=== PATIENT | female | born 1940 | race Caucasian/White ===

== ENCOUNTER 2024-09-29 15:54 | Outpatient (REF) | payer MEDICARE, SELFPAY ==
[2024-09-29 15:57] LABS: MANUAL DIFF FLAG NO
[2024-09-29 16:01] LABS: Basophils Percent Auto 0.4 % (0-2); Eosinophils Absolute Auto 0.1 X10*3/uL (0.0-0.4); Eosinophils Percent Auto 1.1 % (0-4); Hematocrit 21.5 % (37.0-47.0); Hemoglobin 7.3 g/dl (12.0-16.0); Imm Gran Abs Auto 0.02 X10*3/uL (0.00-0.03); Imm Gran Pct Auto 0.4 % (0.0-0.4); Lymphocytes Absolute Auto 0.8 X10*3/uL (1.2-4.9); Lymphocytes Percent Auto 14.5 % (20-40); Mean Corpuscular Hemoglobin 31.6 pg (27.0-33.0); Mean Corpuscular Volume 93.1 fL (80.0-98.0); Mean Platelet Volume 9.8 fL (9.4-12.3); Monocytes Absolute Auto 0.5 X10*3/uL (0.1-1.2); Monocytes Percent Auto 9.3 % (2-11); Neutrophils Absolute Auto 4.1 x10*3/uL (2.0-8.3); Neutrophils Percent Auto 74.3 % (45-73); Platelet Count 187 X10*3/uL (160-400); Red Blood Count 2.31 X10*6/uL (4.20-5.50); Red Cell Distribution Width 15.2 % (11.0-16.0); White Blood Count 5.5 X10*3/uL (4.8-10.8)
[2024-09-29 16:05] LABS: INTERNATIONAL NORM RATIO 0.9 (0.9-1.1); Prothrombin Time 10.8 SEC (10.9-12.4)
--- OUTSIDE RECORDS SUMMARY | 2024-09-29 16:21 | XMS_ITS | Encounter Summary ---
Author Organization [employer] Address [address] [place] [address] Care Team Providers Care Panelboard Operator Name Role Phone Rylan Ortiz DO Primary Care Provider Encounter Details Date Type Department Care Team (Latest Contact Info) Description 09/17/2024 8:38 AM EST - 09/17/2024 11:59 PM EST Hospital Encounter [facility] [address] [place] [phone] Pain Discharge Disposition: Home or Self Care Social History Tobacco Use Types Packs/Day Years Used Date Smoking Tobacco: Never Smokeless Tobacco: Never Alcohol Use Standard Drinks/Week Comments Not Currently 0 (1 standard drink = 0.6 oz pur e alcohol) Comments Unknown Sex and Gender Information Value Date Recorded Sex Assigned at Female 09/22/2024 3:42 PM EST Legal Sex Female 2:57 AM EST Gender Identity Female 09/22/2024 3:42 PM EST Sexual Orientation Straight 09/22/2024 3: 42 PM EST documented as of this encounter Medications at Time of Discharge hydroCHLOROthiazi de (HYDRODIURIL) 25 mg tablet Take 1 tablet (25 mg total) by mouth 1 (one) time each day. 02/12/2018 levothyroxine (SYNTHROID, LEVOTHROID) 175 mcg tablet Take 1 tablet (175 mcg total) by mouth 1 (one) time each day before breakfast. 08/21/2024 simvastatin (ZOCOR) 10 mg tablet Take 1 tablet (10 mg total) by mouth at bedtime. 04/01/2018 metoprolol succinate (TOPROL-XL) 50 mg 24 hr tablet Take 1 tablet (50 mg total) by mouth 1 (one) time each day. 03/06/2018 09/26/2024 warfarin (COUMADIN) 5 mg tablet Take 1 tablet (5 mg total) by mouth 1 (one) time each day with dinner. 07/02/2006 09/26/2024 documented as of this encounter Discharge Disposition Disposition Code Departure Means Destination Home or Self Care documented in this encounter Plan of Treatment Upcoming Encounters Date Type Department Care Team (Late st Contact Info) Description 10/20/2024 12:30 PM EST Consult Orthopedics - [place] [address] [place] [phone] Kavin Xavier PA [address] [place] [address] documented as of this encounter Procedures Procedure Name Priority Date/Time Associated Diagnosis Comments XR SHOULDER 2+ VIEWS RIGHT Routine 09/17/2024 8:50 AM EST Pain documented in this encounter Results * XR Shoulder 2+ Views Right (09/17/2024 8:50 AM EST) Anatomical Region Laterality Modality Upper Extremities, Shoulder Right Radi ographic Imaging 09/17/2024 8:52 AM EST Impressions 09/17/2024 9:00 AM EST Degenerative changes of the right shoulder. Bilobed calcification or ossification superior to the femoral head. ??The morphology is more suggestive of an ossification, and this could represent a loose body. ??Possibility of calcific tendinitis of the rotator cuff is not excluded but felt less likely. -------- FINAL REPORT -------- Dictated By: Man Abarca Dictated Date: 09/17/2024 08:52 ET Assigned Physician: Man Abarca Reviewed and Electronically Signed By: Man Abarca Signed Date: 09/17/2024 09:00 ET Workstation ID: [id number] Transcribed By: Self Edit Transcribed Date: 09/17/2024 08:54 ET Narrative 09/17/2024 9:00 AM EST Multiple views of the right shoulder, 09/17/2024. HISTORY: pain. COMPARISON: None. FINDINGS: Bones are diffusely demineralized. ??There are mild degenerative changes of the acromioclavicular and glenohumeral joint. ??Lateral downsloping of the acromion with prominent subacromial spurs and narrowing of the subacromial space. ??There is a bilobed calcification or more likely ossification projecting superior to the humeral head on the frontal view which could represent a loose body. ??No fracture or malalignment. ??Normal periarticular soft tissues. Procedure Note Man Abarca MD - 09/17/2024 Multiple views of the right shoulder, 09/17/2024. HISTORY: pain. COMPARISON: None. FINDINGS: Bones are diffusely demineralized. There are mild degenerative changes ofthe acromioclavicular and glenohumeral joint. Lateral downsloping of theacromion with prominent subacromial spurs and narrowing of the subacromialspace. There is a bilobed calcification or more likely ossificationprojecting superior to the humeral head on the frontal view which couldrepresent a loose body. No fracture or malalignment. Normalperiarticular soft tissues. IMPRESSION: Degenerative changes of the right shoulder. Bilobed calcification or ossification superior to the femoral head. Themorphology is more suggestive of an ossification, and this could representa loose body. Possibility of calcific tendinitis of the rotator cuff isnot excluded but felt less likely. -------- FINAL REPORT -------- Dictated By: Man Abarca Dictated Date: 09/17/2024 08:52 ET Assigned Physician: Man Abarca Reviewed and Electronically Signed By: Man Abarca Signed Date: 09/17/2024 09:00 ET Workstation ID: [id number] Transcribed By: Self Edit Transcribed Date: 09/17/2024 08:54 ET Rylan Ortiz DO IM XR PROCEDURES Final Resul t documented in this encounter Visit Diagnoses Diagnosis Pain Generalized pain documented in this encounter Care Teams Panelboard Operator Relationship Specialty Start Date End Date Rylan Ortiz DO [address] [place] [phone] PCP - General 09/30/12 documented as of this encounter
--- OUTSIDE RECORDS SUMMARY | 2024-09-29 16:21 | XMS_ITS | Encounter Summary ---
Author Organization [employer] Address [address] [place] [address] Care Team Providers Care Acute Dialysis Registered Nurse Name Role Phone Rylan Ortiz DO Primary Care Provider [phone] Reason for Visit * Auth/Cert (Routine) Specialty Diagnoses / Procedures Referred By Tirso ahuja Referred To Contact Diagnoses Gastrointestinal hemorrhage, unspecified gastrointestinal hemorrhage type Procedures [facility] IP/OBS CARE INITIAL MODERATE LEVEL PER DAY Srini Cisneros MD [address] [place] [address] Phone: tel: fax: [facility] [address] [place] [address] Phone: tel: Referral ID Status Reason Start Date Expiration Date Visits Re quested Visits Authorized [id number] 1 1 Encounter Details Date Type Department Care Team (Late st Contact Info) Description 09/23/2024 10:49 AM EST Anesthesia Event [facility] [address] [place] [address] Dae Schwartz DO [address] [place] [address] Danuta oMser, [employer] [address] [place] [address] Anesthesia Record Procedure Summary Procedure Name Responsible Anesthesiologist Anesthesia Start Time Anesthesia Stop Time COLONOSCOPY Dae Schwartz DO 09/23/24 1049 1126 Events Date Time Event Comment 09/23/2024 0941 1047 In Room 1049 An Start 1049 An Start Data The patient wa s reevaluated immediately before moderate or deep sedation use and before anesthesia induction. 1100 Anesthesia Ready 1118 an stop data 1120 Out of Room 1125 Handoff to RN I completed my handoff to the receiving nurse during which we: 1. Identified the patient 2. Identified the responsible provider 3. Reviewed the pertinent medical history 4. Discussed the surgical course 5. Reviewed intra-op anesthesia management and issues during anesthesia 6. Set expectations for post-procedure period 7. Allowed opportunity for questions and acknowledgement of understanding. 1126 An Stop Meds Name Total propofol (DIPRIVAN) injection 10 mg/mL 1 10 mg lidocaine PF (XYLOCAINE-MPF) local injec tion 2% 100 mg benzocaine (HURRICAINE) mucosal spray 20 % (spray can) 1 spray lactated Ringer's infusion 75 mL sodium chloride 0.9 % infusion 100 mL * Agents No agents on file. * Blood Name Total PRBC 350 mL FFP 300 mL Lines, Drains, and Airways Type Details Placement Removal Peripheral IV Placement Date: 01/10; Placement Time: 09; Catheter Size: 20 G (20g 1 /); Orientation: Anterior, Right, Lower; Location: Forearm; Site Prep: Chlorhexidine; Local Anesth: None; Inserted by: anam whiting iv; Insertion Attempts: 1; Patient Tolerance: Tolerated well; Removal Date: 09/26/24; Removal Time: 1630 09/23/24 0910 by Laura Morales RN 09/26/24 163 by Gustavo Maldonado RN documented in this encounter Social History Tobacco Use Types Packs/Day Years Used Date Smoking Tobacco: Never Smokeless Tobacco: Never Alcohol Use Standard Drinks/Week Comments Not Currently 0 (1 standard drink = 0.6 oz pur e alcohol) Interpersonal Safety Answer Date Record ed Physical Abuse 09/23/2024 Verbal Abuse 09/23/2024 Comments No Sex and Gender Information Value Date Recorded Sex Assigned at Female 09/22/2024 3:42 PM EST Legal Sex Female 2:57 AM EST Gender Identity Female 09/22/2024 3:42 PM EST Sexual Orientation Straight 09/22/2024 3: 42 PM EST documented as of this encounter Progress Notes * Danuta Moser CRNA - 09/23/2024 11:26 AM EST Patient: Kristen Waite Procedure Summary Date: 09/23/24 Room / Location: [facility] Anesthesia Start: 1049 Anesthesia Stop: 6 Procedures: COLONOSCOPY EGD Diagnosis: Gastrointestinal hemorrhage, unspecified (Iron deficiency anemia) (Recent GI bleeding) Scheduled Providers: Hill Prado MD; Dae Schwartz DO; Danuta Moser CRNA Responsible Provider: Dae Schwartz DO Anesthesia Type: MAC ASA Status: 3 Anesthesia Plan: MAC Last Vitals: Vitals Value Taken Time BP 138/72 09/23/24 1126 Temp 97.4 09/23/24 1126 Pulse 87 09/23/24 1126 Resp 23 09/23/24 1126 SpO2 94 09/23/24 1126 Pain Score: 0 - No pain Anesthesia Post Evaluation Patient location during evaluation: PACU (phase 2) Patient participation: complete - patient participated Level of consciousness: awake Pain score: 0 Pain management: adequate Anesthetic complications: no Cardiovascular status: stable Respiratory status: spontaneous ventilation Hydration status: acceptable Comments: Report to RN VSS No c/o. Blood and FFP nearly complete. Nausea: No Vomiting: No There were no known notable events for this encounter. * Dae Schwartz DO - 09/23/2024 9:41 AM EST 84 y.o. female scheduled for Gastrointestinal hemorrhage, unspecified gastrointestinal hemorrhage type [COLONOSCOPY EGD] Ht Readings from Last 1 Encounters: 09/21/24 1.702 m (67 ) Wt Readings from Last 1 Encounters: 09/21/24 73.9 kg (163 lb) Body mass index is 25.53 kg/m??. Past Medical History: Diagnosis Date Atrial fibrillation (CMS/HCC) Depression DX:Depression Diabetes mellitus, type II (CMS/HCC) DX:Diabetes mellitus, type II (HCC) Essential hypertension DX:Essential hypertension Family history of cardiovascular disease DX:Family history of cardiovascular disease Hyperlipidemia DX:Hyperlipidemia Hypothyroid Kyphoscoliosis OA (osteoarthritis) of knee DX:OA (osteoarthritis) of knee Past Surgical History: Procedure Laterality Date HAND SURGERY HYSTERECTOMY Denies anesthesia complications No Known Allergies No current facility-administered medications on file prior to encounter. Current Outpatient Medications on File Prior to Encounter Medication Sig Dispense Refill hydroCHLOROthiazide (HYDRODIURIL) 25 mg tablet Take 1 tablet (25 mg total) by mouth 1 (one) time each day. levothyroxine (SYNTHROID, LEVOTHROID) 175 mcg tablet Take 1 tablet (175 mcg total) by mouth 1 (one)time each day before breakfast. metoprolol succinate (TOPROL-XL) 50 mg 24 hr tablet Take 1 tablet (50 mg total) by mouth 1 (one) time each day. simvastatin (ZOCOR) 10 mg tablet Take 1 tablet (10 mg total) by mouth at bedtime. warfarin (COUMADIN) 5 mg tablet Take 1 tablet (5 mg total) by mouth 1 (one) time each day with dinner. Current In-hospital Medications Prior to Admission medications Medication Sig Start Date End Date Taking? Authorizing Provider hydroCHLOROthiazide (HYDRODIURIL) 25 mg tablet Take 1 tablet (25 mg total) by mouth 1 (one) time each day. 02/12/18 Yes Historical Provider, levothyroxine (SYNTHROID, LEVOTHROID) 175 mcg tablet Take 1 tablet (175 mcg total) by mouth 1 (one)time each day before breakfast. 08/21/24 Yes Historical Provider, metoprolol succinate (TOPROL-XL) 50 mg 24 hr tablet Take 1 tablet (50 mg total) by mouth 1 (one) time each day. 03/06/18 Yes Historical Provider, simvastatin (ZOCOR) 10 mg tablet Take 1 tablet (10 mg total) by mouth at bedtime. 04/01/18 Yes Historical Provider, warfarin (COUMADIN) 5 mg tablet Take 1 tablet (5 mg total) by mouth 1 (one) time each day with dinner. 07/02/06 Yes Historical Provider, Social History Tobacco Use Smoking status: Never Smokeless tobacco: Never Substance Use Topics Alcohol use: Not Currently Drug use: Never Is the patient a current smoker (e.g. cigarette, cigar, pip, e-cigarette, or mariajuana)? Yes [] No[] Patient previously instructed to abstain from smoking on the day of procedure? Yes [] No[] Patient smoked on the day of procedure? Yes [] No[] ASPIRE smoking VBR: [] Not interested in quitting [] Interested in quitting- referred to treatment [] Interested in quitting - treatment provided Visit Vitals BP (!) 147/66 (BP Location: Left arm;Upper, Patient Position: Lying) Pulse 97 Temp 36.9 ??C (98.4 ??F) (Oral) Resp 16 Ht 1.702 m (67 ) Wt 73.9 kg (163 lb) SpO2 99% BMI 25.53 kg/m?? Smoking Status Never BSA 1.85 m?? LABS: Lab Results Component Value Date WBC 6.8 09/23/2024 HGB 7.4 (L) 09/23/2024 HCT 22.2 (L) 09/23/2024 MCV 91.7 09/23/2024 PLT 157 09/23/2024 Lab Results Component Value Date GLUCOSE 109 (H) 09/23/2024 CALCIUM 8.2 (L) 09/23/2024 NA 144 09/23/2024 K 3.4 (L) 09/23/2024 CO2 30 09/23/2024 CL 109 09/23/2024 BUN 20 09/23/2024 CREATININE 0.64 09/23/2024 Lab Results Component Value Date INR 1.9 09/23/2024 INR 2.6 09/22/2024 INR 2.9 09/21/2024 No results found for: PTT EKG No results found for this or any previous visit (from the past 4464 hour(s)). ECHO No results found for this or any previous visit. CATH No results found for this or any previous visit. Relevant Problems No relevant active problems Clinical information reviewed: Tobacco Allergies Meds Problems Med Hx Surg Hx Fam Hx Soc Hx Anesthesia Plan ASA 3 Anesthesia Plan: MAC Anesthesia Risks Discussed serious complications Induction method: intravenous Anesthetic plan and risks discussed with patient. Anesthesia Evaluation Patient summary reviewed Airway Mallampati: II Dental - normal exam Pulmonary - normal exam Cardiovascular - normal exam Neuro/Psych GI/Hepatic/Renal Endo/Other Abdominal PONV RISK SCORE: 2 Vitals: 09/23/24 0039 09/23/24 0128 09/23/24 0841 09/23/24 0900 BP: (!) 149/94 127/73 (!) 154/71 (!) 147/66 BP Location: Left arm Left arm Left arm Left arm;Upper Patient Position: Sitting Lying Lying Lying Pulse: 99 109 104 97 Resp: 20 16 16 16 Temp: 36.8 ??C (98.2 ??F) 36.3 ??C (97.4 ??F) 36.7 ??C (98.1 ??F) 36.9 ??C (98.4 ??F) TempSrc: Oral Temporal Temporal Oral SpO2: 96% 98% 100% 99% Weight: Height: SpO2 Readings from Last 1 Encounters: 09/23/24 99% WBC Date Value Ref Range Status 09/23/2024 6.8 4.8 - 10.8 K/mcL Final RBC Date Value Ref Range Status 09/23/2024 2.40 (L) 3.80 - 4.80 M/mcL Final Hemoglobin Date Value Ref Range Status 09/23/2024 7.4 (L) 11.5 - 16.0 g/dL Final Hematocrit Date Value Ref Range Status 09/23/2024 22.2 (L) 35.0 - 47.0 % Final Platelets Date Value Ref Range Status 09/23/2024 157 130 - 400 K/mcL Final MCV Date Value Ref Range Status 09/23/2024 91.7 79.0 - 98.0 FL Final No Known Allergies STOP BANG: No data recorded NPO Status: No data recorded documented in this encounter Plan of Treatment Upcoming Encounters Date Type Department Care Team (Late st Contact Info) Description 10/20/2024 12:30 PM EST Consult Orthopedics - [place] [address] [place] [phone] Kavin Xavier PA [address] [place] [address] documented as of this encounter Visit Diagnoses Not on filedocumented in this encounter Administered Medications Inactive Administered Medications - up to 3 most recent administrations Medication Order MAR Action Action Date Dose Rate Site benzocaine (HURRICAINE) 20 % mucosal spray Mouth/Throat, As needed, Starting on Sat09/23/24 at 1056, Anesthesia Intraprocedure Given 09/23/2024 10:56 AM EST 1 spray lactated Ringer's infusion 100 mL/hr, intravenous, Continuous, Starting on Sat09/23/24 at 1000, Preprocedure Continued by Anesthesia 09/23/2024 10:49 AM EST New Bag 09/23/2024 10:31 AM EST lidocaine (PF) (XYLOCAINE-MPF) 2 % injection injection, As needed, Starting on Sat09/23/24 at 1056, Anesthesia Intraprocedure Given 09/23/2024 11:04 AM EST 20 mg Given 09/23/2024 10:59 AM EST 40 mg Given 09/23/2024 10:56 AM EST 40 mg propofoL (DIPRIVAN) injection intravenous, As needed, Starting on Sat09/23/24 at 1056, Anesthesia Intraprocedure Given 09/23/2024 11:13 AM EST 2 0 mg Given 09/23/2024 11:06 AM EST 20 mg Given 09/23/2024 11:05 AM EST 10 mg sodium chloride 0.9 % infusion 42 mL/hr, intravenous, As needed, pre-, and post- transfusion as needed for line flush purposes, in conjunction with blood product transfusion only, Starting on Sat09/23/24 at 0629, -Use only the amount required from a 250 mL bag of NS to adequately flush -A new NS bag is required with each new unit of blood administered New Bag 09/23/2024 10:49 AM EST documented in this encounter Care Teams Acute Dialysis Registered Nurse Relationship Specialty Start Date End Date Rylan Ortiz DO [address] [place] [phone] PCP - General 09/30/12 documented as of this encounter
--- OUTSIDE RECORDS SUMMARY | 2024-09-29 16:21 | XMS_ITS | Clinical Summary ---
Author Organization [address] [facility] Address [address] [place] [id number] Phone Care Team Providers Care Refuse Laborer Name Role Phone Rylan Ortiz DO Primary Care Provider [phone] Allergies No known active allergies Medications hydroCHLOROthi azide (HYDRODIURIL) 25 mg tablet Take 1 tablet (25 mg total) by mouth 1 (one) time each day. 02/13/20 18 Active levothyroxine (SYNTHROID, LEVOTHROID) 175 mcg tablet Take 1 tablet (175 mcg total) by mouth 1 (one) time each day before breakfast. 08/21/19 25 Active simvastatin (ZOCOR) 10 mg tablet Take 1 tablet (10 mg total) by mouth at bedtime. 04/01/20 18 Active metoprolol succinate (TOPROL-XL) 50 mg 24 hr tablet Take 0.5 tablets (25 mg total) by mouth 1 (one) time each day. 15 each 09/26/19 25 025 Active docusate sodium (COLACE) 100 mg capsule Take 1 capsule (100 mg total) by mouth 2 (two) times a day. 60 each 09/26/19 25 03/10/2 025 Active polyethylene glycol (MIRALAX) 17 gram packet Take 17 g by mouth 1 (one) time each day. 510 g 09/26/19 25 025 Active lactulose (CHRONULAC) solution Take 30 mL (20 g total) by mouth 1 (one) time each day if needed (constipati on). 480 mL 09/26/19 25 025 Active metoprolol succinate (TOPROL-XL) 50 mg 24 hr tablet Take 1 tablet (50 mg total) by mouth 1 (one) time each day. 03/06/20 18 025 Discontinued warfarin (COUMADIN) 5 mg tablet Take 1 tablet (5 mg total) by mouth 1 (one) time each day with dinner. 07/02/20 06 025 Discontinued(St op Taking at Discharge) Active Problems Problem Noted Date Diagnosed Date Gastrointestinal hemorrhage, unspecified gastrointestinal hemorrhage type 09/21/2024 Shortness of breath 01/30/2024 Overview (09/29/2024): Last Assessment & Plan: Likely caused by diastolic dysfunction due to longstanding atrial fibrillation, plus moderate aortic stenosis. She only had mild exertional symptoms. I will check BMP and BNP. Will consider to add low-dose diuretics, could take it as needed. Aortic valve disorder 10/30/2023 Overview (09/29/2024): Last Assessment & Plan: Aortic valve stenosis appeared moderate by echocardiogram. Will continue to monitor. Will repeat echocardiogram in 1 year. Deep vein thrombosis (DVT) 10/29/2023 HLD (hyperlipidemia) 10/29/2023 HTN (hypertension) 10/29/2023 A-fib 10/24/2023 Overview (09/29/2024): Last Assessment & Plan: Longstanding for 15 years. Rate is controlled. Continue warfarin. Cardiomegaly 10/24/2023 Encounters Date Type Department Care Team Description 09/23/2024 10:49 AM EST Anesthesia Event [facility] Endoscopy [address] [place] [address] Dae Schwartz DO Pierce, Trudy A, [employer]ER 09/21/2024 12:47 PM EST - 09/26/2024 4:58 PM EST Hospital Encounter [facility] Surgical Unit [address] [place] [id number] Pierre Pompa MD Bukalo, MD Serina Milligan Anna, MD Gastrointestinal hemorrhage, unspecified gastrointestinal hemorrhage type (Primary Dx); Gastrointestinal hemorrhage, unspecified Discharge Disposition: Home-Health Care Svc 09/17/2024 8:38 AM EST - 09/17/2024 11:59 PM EST Hospital Encounter [facility] Xray [address] [place] [address] Pain Discharge Disposition: Home or Self Care from Last 3 Months Surgical History Surgery Date Site/Laterality Comments HAND SURGERY HYSTERECTOMY Medical History Medical History Date Comments Essential hypertension DX:Essent ial hypertension Family history of cardiovasc ular disease DX:Family history of cardiov ascular disease Hyperlipidemia DX:Hyperlipidemi a Depression DX:Depression Diabetes mellitus, type II (CMS/HCC) DX:Diabetes mellitus, type II (HCC) OA (osteoarthritis) of knee DX:O A (osteoarthritis) of knee Hypothyroid Atrial fibrillation (CMS/HCC) Kyphoscoliosis HLD (hyperlipidemia) 10/29/2023 HTN (hypertension) 10/29/2023 Family History Medical History Relation Name Comments Coronary artery disease Father Coronary artery disease Mother Relation Name Status Comments Father Mother Social History Tobacco Use Types Packs/Day Years [...] Orientation Straight 09/22/2024 3: 42 PM EST Obstetrics History Last Filed Vital Signs Vital Sign Reading Time Taken Comments Blood Pressure 134/70 09/26/2024 2:19 PM EST Pulse 87 09/26/2024 2:19 PM EST Temperature 36.2 ??C (97.2 ??F) 09/26/2024 2:19 PM ES T Respiratory Rate 16 09/26/2024 2:19 PM EST Oxygen Saturation 100% 09/26/2024 2:19 PM EST Inhaled Oxygen Concentration - - Weight 73.9 kg (163 lb) 09/21/2024 11:37 AM EST Height 170.2 cm (5' 7 ) 09/21/2024 11:37 AM EST Body Mass Index 25.53 09/21/2024 11:37 AM EST Plan of Treatment Upcoming Encounters Date Type Department Care Team (Late st Contact Info) Description 10/20/2024 12:30 PM EST Consult Orthopedics - [place] [address] [place] [phone] Kavin Xavier PA [address] [place] [address] Health Maintenance Due Date Last Done Comments Zoster Vaccines (1 of 2) 1988 DTaP,Tdap,and Td Vaccines (2 - Td or Tdap) 07/28/2001 06/30/2001 Pneumococcal Vaccine: 50+ Years (2 of 2 - PCV) 06/15/2004 06/15/2003 RSV Immunization Patients 60+ Years Old (1 - 1-dose 75+ series) 2013 Cholesterol Screening (Lipid Panel) 07/22/2022 Depression Screening 07/22/2022 Medicare Annual Wellness Visit 07/22/2022 Social Influencers of Health Screening 07/22/2022 COVID-19 Vaccine ( season) 2024 07/25/2021, 10/11/2020, 09/18/2020 Falls Risk Assessment 09/26/2025 09/26/2024 Hypertension/CHF/CAD Annual BMP Blood Test 09/26/2025 09/26/2024, 09/25/2024, 09/24/2024, Additional history exists Osteoporosis Screening (Bone Density Screening) 04/24/2028 04/24/2018 Influenza Vaccine Completed 04/16/2024, , 09/27/2022, Additional history exists HIB Vaccines Aged Out No longer eligi ble based on patient's age to complete this topic HPV Vaccines Aged Out No longer eligi ble based on patient's age to complete this topic Hepatitis A Vaccines Aged Out No long er eligible based on patient's age to complete this topic Hepatitis B Vaccines Aged Out No long er eligible based on patient's age to complete this topic IPV Vaccines Aged Out No longer eligi ble based on patient's age to complete this topic MMR Vaccines Aged Out No longer eligi ble based on patient's age to complete this topic Meningococcal ACWY Vaccine Aged Out N o longer eligible based on patient's age to complete this topic Meningococcal B Vacine Aged Out No lo nger eligible based on patient's age to complete this topic RSV Immunization Patients Under 20 months Aged Out No longer eligible based on patient's age to complete this topic Varicella Vaccines Aged Out No longer eligible based on patient's age to complete this topic Procedures Procedure Name Priority Date/Time Associated Diagnosis Comments HEMOGLOBIN AND HEMATOCRIT Routine 09/26/2024 1:08 PM EST TRANSFUSE RED BLOOD CELLS Routine 09/26/2024 8:49 AM EST PROTHROMBIN TIME WITH INR Routine 09/26/2024 7:13 AM EST PREPARE RBC Routine 09/26/2024 7:02 AM EST CBC WITH AUTO DIFFERENTIAL Routine 09/26/2024 7:00 AM EST BASIC METABOLIC PANEL Routine 09/26/2024 7:00 AM EST CBC AND DIFFERENTIAL Routine 09/26/2024 7:00 AM EST HEMOGLOBIN AND HEMATOCRIT Routine 09/26/2024 12:04 AM EST HEMOGLOBIN AND HEMATOCRIT Routine 09/25/2024 4:47 PM EST TRANSFUSE RED BLOOD CELLS Routine 09/25/2024 11:35 AM EST TYPE AND SCREEN Routine 09/25/2024 8:22 AM EST PREPARE RBC Routine 09/25/2024 8:06 AM EST CBC WITH AUTO DIFFERENTIAL Routine 09/25/2024 7:06 AM EST BASIC METABOLIC PANEL Routine 09/25/2024 7:06 AM EST CBC AND DIFFERENTIAL Routine 09/25/2024 7:06 AM EST HEMOGLOBIN AND HEMATOCRIT Routine 09/24/2024 3:39 PM EST CBC WITH AUTO DIFFERENTIAL Routine 09/24/2024 6:17 AM EST BASIC METABOLIC PANEL Routine 09/24/2024 6:17 AM EST CBC AND DIFFERENTIAL Routine 09/24/2024 6:17 AM EST CBC WITH AUTO DIFFERENTIAL Routine 09/24/2024 2:36 AM EST CBC AND DIFFERENTIAL Routine 09/24/2024 2:36 AM EST HEMOGLOBIN AND HEMATOCRIT Routine 09/23/2024 6:43 PM EST EGD Routine 09/23/2024 11:20 AM EST Gastrointestinal hemorrhage, unspecified COLONOSCOPY Routine 09/23/2024 11:20 AM EST Gastrointestinal hemorrhage, unspecified TRANSFUSE RED BLOOD CELLS Routine 09/23/2024 9:56 AM EST PREPARE PLASMA Routine 09/23/2024 7:30 AM EST PREPARE RBC Routine 09/23/2024 6:30 AM EST CBC WITH AUTO DIFFERENTIAL Routine 09/23/2024 5:00 AM EST PROTHROMBIN TIME WITH INR Routine 09/23/2024 5:00 AM EST CBC AND DIFFERENTIAL Routine 09/23/2024 5:00 AM EST BASIC METABOLIC PANEL Routine 09/23/2024 5:00 AM EST CBC WITH AUTO DIFFERENTIAL STAT 09/23/2024 12:49 AM EST CBC AND DIFFERENTIAL STAT 09/23/2024 12:49 AM EST HEMOGLOBIN AND HEMATOCRIT Timed 09/22/2024 6:41 PM EST PROTHROMBIN TIME WITH INR Routine 09/22/2024 8:03 AM EST COMPREHENSIVE METABOLIC PANEL Routine 09/22/2024 8:03 AM EST COMPLETE BLOOD COUNT Routine 09/22/2024 8:03 AM EST TRANSFUSE RED BLOOD CELLS Routine 09/22/2024 3:42 AM EST PREPARE RBC Routine 09/22/2024 2:57 AM EST CBC WITH AUTO DIFFERENTIAL Routine 09/21/2024 11:18 PM EST CBC AND DIFFERENTIAL Routine 09/21/2024 11:18 PM EST TRANSFUSE RED BLOOD CELLS Routine 09/21/2024 6:[address] ANGIO ABDOMEN PELVIS WO AND/OR W CONTRAST STAT 09/21/2024 5:20 PM EST Gastrointestinal hemorrhage, unspecified gastrointestinal hemorrhage type TRANSFUSE RED BLOOD CELLS Routine 09/21/2024 2:27 PM EST PREPARE RBC Routine 09/21/2024 1:45 PM EST CBC WITH AUTO DIFFERENTIAL STAT 09/21/2024 11:54 AM EST PROTHROMBIN TIME WITH INR STAT 09/21/2024 11:54 AM EST TYPE AND SCREEN STAT 09/21/2024 11:54 AM EST COMPREHENSIVE METABOLIC PANEL STAT 09/21/2024 11:54 AM EST CBC AND DIFFERENTIAL STAT 09/21/2024 11:54 AM EST SD CRITICAL CARE 30-74 MINUTES Routine 09/21/2024 11:34 AM EST XR SHOULDER 2+ VIEWS RIGHT Routine 09/17/2024 8:50 AM EST Pain PROTHROMBIN TIME WITH INR Routine 09/15/2024 9:23 AM EST dedicated intermodal truck driver (current) use of anticoagulants PROTHROMBIN TIME WITH INR Routine 09/01/2024 10:21 AM EST detention (current) use of anticoagulants PROTHROMBIN TIME WITH INR Routine 07/21/2024 9:54 AM EST dedicated intermodal truck driver (current) use of anticoagulants PROTHROMBIN TIME WITH INR Routine 07/09/2024 10:26 AM EST detention (current) use of anticoagulants PROTHROMBIN TIME WITH INR Routine 07/02/2024 9:40 AM EST detention (current) use of anticoagulants [facility] DEXA AXIAL SKELETON Routine 04/24/2018 12:06 PM EDT Encounter for screening for osteoporosis from Last 3 Months or Most Recently Relevant to Health Maintenance Results * (ABNORMAL) Hemoglobin and hematocrit (09/26/2024 1:08 PM EST) Only the most recent of6 resultswithin the time period is included. Hemoglobin 8.0(L) 11.5 - 16.0 g/dL LAB HEMETOLOGY METHOD 09/26/2024 1:[address] [facility] Hematocrit 24.6(L) 35.0 - 47.0 % LAB HEMETOLOGY METHOD 09/26/2024 1:[address] [facility] Blood Venous blood specimen / Unknown Venipuncture / Unknown 09/26/2024 1:08 PM EST 09/26/2024 1:14 PM EST Luly KEITH LAB BLOOD ORDERABLES Final Result [facility] [address] [place] [address], [place] [phone] * Transfuse RBC (09/26/2024 11:47 AM EST) Only the most recent of6 resultswithin the time period is included. Luly KEITH BLOOD TRANSFUSION ORDERABLE S Final Result * Prothrombin time with INR (09/26/2024 7:13 AM EST) Only the most recent of9 resultswithin the time period is included. [facility] Protime 13.5 10.6 - 13.9 sec LAB COAGULATION METHOD 09/26/2024 7:36 AM [facility] INR 1.1 LAB COAGULATION METHOD 09/26/2024 7:36 AM [facility] Blood Venous blood specimen / Unknown Venipuncture / Unknown 09/26/2024 7:13 AM EST 09/26/2024 7:20 AM EST Luly KEITH LAB BLOOD ORDERABLES Final Result Performing Organization Address [facility] Co de Phone Number [facility] [address] [place] [address], [place] [phone] * Prepare RBC: 1 Units (09/26/2024 7:02 AM EST) Only the most recent of5 resultswithin the time period is included. Product Code [id number] 09/26/2024 8:50 AM [facility] Unit Number [id number] 09/26/19 8:50 AM [facility] Crossmatch Compatible 09/26/2024 7:44 AM [facility] Dispense Status Transfused 09/26/2024 8:50 AM [facility] Unit ABO Rh ANEG 09/26/2024 8:50 AM [facility] Unit Expiration Date Time [id number] 09/26/2024 8:50 AM [facility] Unit Blood Type 0600 09/26/2024 8:50 AM [facility] Blood Venous blood specimen / Unknown 09/26/2024 7:02 AM EST 09/25/2024 8:28 AM EST us Luly KEITH BLOOD BANK PRODUCT ORDERABL ES Final Result [facility] [address] [place] [address], [place] [phone] * (ABNORMAL) CBC auto differential (09/26/2024 7:00 AM EST) Only the most recent of8 resultswithin the time period is included. WBC 5.2 4.8 - 10.8 K/mcL LAB HEMETOLOGY METHOD 09/26/2024 7:31 AM [facility] RBC 2.30(L) 3.80 - 4.80 M/[facility] LAB HEMETOLOGY METHOD 09/26/2024 7:31 AM [facility] Hemoglobin 7.1(L) 11.5 - 16.0 g/dL LAB HEMETOLOGY METHOD 09/26/2024 7:31 AM [facility] Hematocrit 22.0(L) 35.0 - 47.0 % LAB HEMETOLOGY METHOD 09/26/2024 7:31 AM [facility] MCV 94.8 79.0 - 98.0 FL LAB HEMETOLOGY METHOD 09/26/2024 7:31 AM [facility] MCH 30.6 27.0 - 32.0 pcg LAB HEMETOLOGY METHOD 09/26/2024 7:31 AM [facility] MCHC 32.3 32.0 - 37.0 g/dL LAB HEMETOLOGY METHOD 09/26/2024 7:31 AM [facility] RDW 15.2(H) 11.0 - 15.0 % LAB HEMETOLOGY METHOD 09/26/2024 7:31 AM [facility] Platelets 152 130 - 400 K/mcL LAB HEMETOLOGY METHOD 09/26/2024 7:31 AM [facility] MPV 9.4 7.0 - 11.0 FL LAB HEMETOLOGY METHOD 09/26/2024 7:31 AM [facility] NRBC 0.0 <1.0 % LAB HEMETOLOGY METHOD 09/26/2024 7:31 AM [facility] NRBC Absolute 0.00 <0.10 K/mcL LAB HEMETOLOGY METHOD 09/26/2024 7:31 AM [facility] Neutrophils Relative 70.2 % LAB HEMETOLOGY METHOD 09/26/2024 7:31 AM [facility] Lymphocytes Relative 16.2 % LAB HEMETOLOGY METHOD 09/26/2024 7:31 AM [facility] Monocytes Relative 8.9 % LAB HEMETOLOGY METHOD 09/26/2024 7:31 AM [facility] Eosinophils Relative 3.5 % LAB HEMETOLOGY METHOD 09/26/2024 7:31 AM [facility] Basophils Relative 0.6 % LAB HEMETOLOGY METHOD 09/26/2024 7:31 AM [facility] Immature Granulocytes Relative 0.6 % LAB HEMETOLOGY METHOD 09/26/2024 7:31 AM [facility] Neutrophils Absolute 3.64 1.50 - 7.00 K/mcL LAB HEMETOLOGY METHOD 09/26/2024 7:31 AM [facility] Lymphocytes Absolute 0.84(L) 1.00 - 5.00 K/mcL LAB HEMETOLOGY METHOD 09/26/2024 7:[address] [facility] Monocytes Absolute 0.46 0.20 - 1.00 K/mcL LAB HEMETOLOGY METHOD 09/26/2024 7:[address] [facility] Eosinophils Absolute 0.18 0.00 - 0.50 K/[facility] LAB HEMETOLOGY METHOD 09/26/2024 7:[address] [facility] Basophils Absolute 0.03 0.00 - 0.20 K/[facility] LAB HEMETOLOGY METHOD 09/26/2024 7:31 AM [facility] Immature Granulocytes Absolute 0.03 0.00 - 0.03 K/[facility] HEMETOLOGY METHOD 09/26/2024 7:31 AM [facility] Blood Venous blood specimen / Unknown Venipuncture / Unknown 09/26/2024 7:00 AM EST 09/26/2024 7:20 AM EST us Luly KEITH LAB BLOOD ORDERABLES Final Result [facility] [address] [place] [address], * (ABNORMAL) Basic metabolic panel (09/26/2024 7:00 AM EST) Only the most recent of4 resultswithin the time period is included. Sodium 143 133 - 145 mmol/L LAB CHEMISTRY METHOD 09/26/2024 8:10 AM [facility] Potassium 4.2 3.5 - 5.5 mmol/L LAB CHEMISTRY METHOD 09/26/2024 8:10 AM [facility] Chloride 112(H) 96 - 110 mmol/L LAB CHEMISTRY METHOD 09/26/2024 8:10 AM [facility] CO2 29 21 - 32 mmol/L LAB CHEMISTRY METHOD 09/26/2024 8:10 AM [facility] Anion Gap 2(L) 3 - 11 LAB CHEMISTRY METHOD 09/26/2024 8:10 AM [facility] Glucose 95 70 - 100 mg/dL LAB CHEMISTRY METHOD 09/26/2024 8:10 AM [facility] BUN 21 5 - 25 mg/dL LAB CHEMISTRY METHOD 09/26/2024 8:10 AM [facility] Creatinine 0.62 0.50 - 1.10 mg/dL LAB CHEMISTRY METHOD 09/26/2024 8:10 AM [facility] eGFR 87 >=60 mL/min/1. 73m2 LAB CHEMISTRY METHOD 09/26/2024 8:10 AM [facility] Comment:Calculation based on the??Chronic Kidney Disease Epidemiology Collaboration (CKD-EPI) equation refit??without adjustment for race. BUN/Creatinine Ratio 33.9 LAB CHEMISTRY METHOD 09/26/2024 8:10 AM [facility] Calcium 8.3(L) 8.5 - 10.5 mg/dL LAB CHEMISTRY METHOD 09/26/2024 8:10 AM [facility] Blood Venous blood specimen / Unknown Venipuncture / Unknown 09/26/2024 7:00 AM EST 09/26/2024 7:20 AM EST us Luly KEITH LAB BLOOD ORDERABLES Final Result [facility] [address] [place] [address], * Type and screen (09/25/2024 8:22 AM EST) Only the most recent of2 resultswithin the time period is included. ABO Group A 09/25/2024 9:33 AM [facility] Rh Type Negative 09/25/2024 9:33 AM [facility] Antibody Screen Negative 09/25/2024 9:33 AM [facility]) [facility] Blood Venous blood specimen / Unknown Venipuncture / Unknown 09/25/2024 8:22 AM EST 09/25/2024 8:28 AM EST Luly KEITH LAB BLOOD BANK TEST ORDERAB LES Final Result [facility] [address] [place] [address], * COLONOSCOPY Anesthesia - MAC; [facility] ENDOSCOPY (09/23/2024 11:20 AM EST) Anatomical Region Laterality Modality Endoscopy 09/23/2024 10:4 6 AM EST Impressions 09/23/2024 11:24 AM EST - Blood in the terminal ileum. ? - Diverticulosis in the sigmoid colon. ? - Blood in the entire examined colon. ? - Non-bleeding internal hemorrhoids. ? - The examination was otherwise normal on direct and ? retroflexion views. ? - No specimens collected. Recommendation: ?- Return patient to hospital [facility] for ongoing care. ? - NPO. ? - Continue present medications. ? - Perform CT scan (computed tomography) of the abdomen ? with contrast if symptoms persist. Narrative 09/23/2024 11:24 AM EST [facility] GI Patient Name: Kristen Waite Procedure Date: 09/23/2024 10:46 AM Date of : 1940 Age: 84 Room: ROOM 15 Gender: Female Note Status: Finalized Attending MD: Hill Prado MD, Procedure Date No Time: 09/23/2024 Procedure: ? Colonoscopy Indications: ? Iron deficiency anemia Providers: ? Hill Prado MD Referring MD: ?Hill Prado MD Medicines: ? Monitored Anesthesia Care Complications: ? No immediate complications. Estimated Blood Loss: ? Estimated blood loss was minimal. Procedure: ? Pre-Anesthesia Assessment: ? - ASA Grade Assessment: III - A patient with severe ? systemic disease. ? - After reviewing the risks and benefits, the patient ? was deemed in satisfactory condition to undergo the ? procedure. ? After I obtained informed consent, the scope was ? passed under direct vision. Throughout the procedure, ? the patient's blood pressure, pulse, and oxygen ? saturations were monitored continuously.The Olympus ? Pediatric Colonoscope was introduced through the anus ? and advanced to the terminal ileum, with ? identification of the appendiceal orifice and IC ? valve. The colonoscopy was performed without ? difficulty. The patient tolerated the procedure well. ? The quality of the bowel preparation was adequate. Findings: ?The terminal ileum contained red blood. ? The remainder of the exam in the terminal ileum was ? normal. ? Scattered small and large-mouthed diverticula were ? found in the sigmoid colon. ? Red blood was found in the entire colon. ? Non-bleeding internal hemorrhoids were found during ? retroflexion. The hemorrhoids were small. ? The exam was otherwise without abnormality on direct ? and retroflexion views. Procedure Code(s): ? --- Professional --- ? 32140, Colonoscopy, flexible; diagnostic, including ? collection of specimen(s) by brushing or washing, when ? performed (separate procedure) Diagnosis Code(s): ? --- Professional --- ? K92.2, Gastrointestinal hemorrhage, unspecified ? D50.9, Iron deficiency anemia, unspecified CPT copyright 2020 [employer]. All rights reserved. The codes documented in this report are preliminary and upon loan reviewer review may be revised to meet current compliance requirements. Hill Prado MD 09/23/2024 11:24:30 AM This report has been signed electronically.Hill Prado MD Number of Addenda: 0 Note Initiated On: 09/23/2024 10:46 AM Scope In: Scope Out: ? Endoscopy Department at [facility] - [address] [place] [address], ? [place] [address] Procedure Note Hill Prado MD - 09/23/2024 [facility] GI Patient Name: Kristen Waite Procedure Date: 09/23/2024 10:46 AM Date of : 1940 Age: 84 Room: ROOM 15 Gender: Female Note Status: Finalized Attending MD: Hill Prado MD, Procedure Date No Time: 09/23/2024 Procedure: Colonoscopy Indications: Iron deficiency anemia Providers: Hill Prado MD Referring MD: Hill Prado MD Medicines: Monitored Anesthesia Care Complications: No immediate complications. Estimated Blood Loss: Estimated blood loss was minimal. Procedure: Pre-Anesthesia Assessment: - ASA Grade Assessment: III - A patient with severe systemic disease. - After reviewing the risks and benefits, thepatient was deemed in satisfactory condition to undergo the procedure. After I obtained informed consent, the scope was passed under direct vision. Throughout theprocedure, the patient's blood pressure, pulse, and oxygen saturations were monitored continuously.The Olympus Pediatric Colonoscope was introduced through theanus and advanced to the terminal ileum, with identification of the appendiceal orifice and IC valve. The colonoscopy was performed without difficulty. The patient tolerated the procedurewell. The quality of the bowel preparation wasadequate. Findings: The terminal ileum contained red blood. The remainder of the exam in the terminal ileum was normal. Scattered small and large-mouthed diverticula were found in the sigmoid colon. Red blood was found in the entire colon. Non-bleeding internal hemorrhoids were found during retroflexion. The hemorrhoids were small. The exam was otherwise without abnormality ondirect and retroflexion views. Procedure Code(s): --- Professional --- 42620, Colonoscopy, flexible; diagnostic, including collection of specimen(s) by brushing or washing,when performed (separate procedure) Diagnosis Code(s): --- Professional --- K92.2, Gastrointestinal hemorrhage, unspecified D50.9, Iron deficiency anemia, unspecified CPT copyright 2020 [employer]. All rights reserved. The codes documented in this report are preliminary and upon loan reviewer reviewmay be revised to meet current compliance requirements. Hill Prado MD 09/23/2024 11:24:30 AM This report has been signed electronically.Hill Prado MD Number of Addenda: 0 Note Initiated On: 09/23/2024 10:46 AM Scope In: Scope Out: Endoscopy Department at [facility] - [address] [place] [id number] IMPRESSION: - Blood in the terminal ileum. - Diverticulosis in the sigmoid colon. - Blood in the entire examined colon. - Non-bleeding internal hemorrhoids. - The examination was otherwise normal on directand retroflexion views. - No specimens collected. Recommendation: - [facility] patient to [facility]. - NPO. - Continue present medications. - Perform CT scan (computed tomography) of theabdomen with contrast if symptoms persist. us Hill Prado MD GI~PROCEDURE ORDERABLES Final Result * EGD Anesthesia - MAC; [facility] ENDOSCOPY (09/23/2024 11:20 AM EST) Anatomical Region Laterality Modality Endoscopy 09/23/2024 10:4 6 AM EST Impressions 09/23/2024 11:21 AM EST - Z-line regular, 40 cm from the incisors. ? - Normal esophagus. ? - Normal stomach. ? - Normal examined duodenum. ? - No specimens collected. Recommendation: ?- Perform a colonoscopy today. Narrative 09/23/2024 11:21 AM EST [facility] GI Patient Name: Kristen Waite Procedure Date: 09/23/2024 10:46 AM Date of : 1940 Age: 84 Room: ROOM 15 Gender: Female Note Status: Finalized Attending MD: Hill Prado MD, Procedure Date No Time: 09/23/2024 Procedure: ? Upper GI endoscopy Indications: ? Recent gastrointestinal bleeding Providers: ? Hill Prado MD Referring MD: ?Hill Prado MD Medicines: ? Monitored Anesthesia Care Complications: ? No immediate complications. Estimated Blood Loss: ? Estimated blood loss: none. Procedure: ? Pre-Anesthesia Assessment: ? - ASA Grade Assessment: III - A patient with severe ? systemic disease. ? - After reviewing the risks and benefits, the patient ? was deemed in satisfactory condition to undergo the ? procedure. ? After obtaining informed consent, the endoscope was ? passed under direct vision. Throughout the procedure, ? the patient's blood pressure, pulse, and oxygen ? saturations were monitored continuously.The Endoscope ? was introduced through the mouth, and advanced to the ? third part of duodenum. The upper GI endoscopy was ? accomplished without difficulty. The patient tolerated ? the procedure well. Findings: ?The Z-line was regular and was found 40 cm from the ? incisors. ? The esophagus was normal. ? The stomach was normal. ? The examined duodenum was normal. Procedure Code(s): ? --- Professional --- ? 59298, Esophagogastroduodenoscopy, flexible, ? transoral; diagnostic, including collection of ? specimen(s) by brushing or washing, when performed ? (separate procedure) Diagnosis Code(s): ? --- Professional --- ? K92.2, Gastrointestinal hemorrhage, unspecified CPT copyright 2020 [employer]. All rights reserved. The codes documented in this report are preliminary and upon loan reviewer review may be revised to meet current compliance requirements. Hill Prado MD 09/23/2024 11:20:53 AM This report has been signed electronically.Hill Prado MD Number of Addenda: 0 Note Initiated On: 09/23/2024 10:46 AM Scope In: Scope Out: ? Endoscopy Department at [facility] - [address] [place] [address], ? [place] [address] Procedure Note Hill Prado MD - 09/23/2024 [facility] GI Patient Name: Kristen Waite Procedure Date: 09/23/2024 10:46 AM Date of : 1940 Age: 84 Room: ROOM 15 Gender: Female Note Status: Finalized Attending MD: Hill Prado MD, Procedure Date No Time: 09/23/2024 Procedure: Upper GI endoscopy Indications: Recent gastrointestinal bleeding Providers: Hill Prado MD Referring MD: Hill Prado MD Medicines: Monitored Anesthesia Care Complications: No immediate complications. Estimated Blood Loss: Estimated blood loss: none. Procedure: Pre-Anesthesia Assessment: - ASA Grade Assessment: III - A patient with severe systemic disease. - After reviewing the risks and benefits, thepatient was deemed in satisfactory condition to undergo the procedure. After obtaining informed consent, the endoscope was passed under direct vision. Throughout theprocedure, the patient's blood pressure, pulse, and oxygen saturations were monitored continuously.TheEndoscope was introduced through the mouth, and advanced tothe third part of duodenum. The upper GI endoscopy was accomplished without difficulty. The patienttolerated the procedure well. Findings: The Z-line was regular and was found 40 cm from the incisors. The esophagus was normal. The stomach was normal. The examined duodenum was normal. Procedure Code(s): --- Professional --- 29915, Esophagogastroduodenoscopy, flexible, transoral; diagnostic, including collection of specimen(s) by brushing or washing, when performed (separate procedure) Diagnosis Code(s): --- Professional --- K92.2, Gastrointestinal hemorrhage, unspecified CPT copyright 2020 [employer]. All rights reserved. The codes documented in this report are preliminary and upon loan reviewer reviewmay be revised to meet current compliance requirements. Hill Prado MD 09/23/2024 11:20:53 AM This report has been signed electronically.Hill Prado MD Number of Addenda: 0 Note Initiated On: 09/23/2024 10:46 AM Scope In: Scope Out: Endoscopy Department at [address] [address] IMPRESSION: - Z-line regular, 40 cm from the incisors. - Normal esophagus. - Normal stomach. - Normal examined duodenum. - No specimens collected. Recommendation: - Perform a colonoscopy today. Hill Prado MD GI~PROCEDURE ORDERABLES Final Result * Transfuse Plasma (09/23/2024 11:03 AM EST) Luly KEITH BLOOD TRANSFUSION ORDERABLE S Final Result * Prepare Plasma: 2 Units (09/23/2024 7:30 AM EST) Product Code [id number] 09/23/2024 11:01 AM EST [facility] Unit Number [id number] 09/23/19 11:01 AM [facility] Dispense Status Transfused 09/23/2024 11:01 AM [facility] Unit ABO Rh APOS 09/23/2024 11:01 AM [facility] Unit Expiration Date Time [id number] 09/23/2024 11:01 AM [facility] Unit Blood Type 6200 09/23/2024 11:01 AM [facility] Product Code [id number] 09/23/2024 2:18 PM [facility] Unit Number [id number] 09/23/19 2:18 PM [facility] Dispense Status Released From Crossmatch 09/23/2024 2:18 PM [facility] Unit ABO Rh APOS 09/23/2024 2:18 PM [facility] Unit Expiration Date Time [id number] 09/23/2024 2:18 PM [facility] Unit Blood Type 6200 09/23/2024 2:18 PM [facility] Blood Venous blood specimen / Unknown 09/23/2024 7:30 AM EST us Luly KEITH BLOOD BANK PRODUCT ORDERABL ES Final Result [facility] [address] [place] [address], * (ABNORMAL) Complete blood count (09/22/2024 8:03 AM EST) [facility] Signature WBC 7.1 4.8 - 10.8 K/[facility] LAB HEMETOLOGY METHOD 09/22/2024 8:[address] [facility] RBC 3.00(L) 3.80 - 4.80 M/mcL LAB HEMETOLOGY METHOD 09/22/2024 8:29 AM [facility] Hemoglobin 8.8(L) 11.5 - 16.0 g/dL LAB HEMETOLOGY METHOD 09/22/2024 8:29 AM [facility] Hematocrit 26.4(L) 35.0 - 47.0 % LAB HEMETOLOGY METHOD 09/22/2024 8:29 AM [facility] MCV 89.2 79.0 - 98.0 FL LAB HEMETOLOGY METHOD 09/22/2024 8:29 AM [facility] MCH 29.7 27.0 - 32.0 pcg LAB HEMETOLOGY METHOD 09/22/2024 8:29 AM [facility] MCHC 33.3 32.0 - 37.0 g/dL LAB HEMETOLOGY METHOD 09/22/2024 8:29 AM [facility] RDW 16.2(H) 11.0 - 15.0 % LAB HEMETOLOGY METHOD 09/22/2024 8:29 AM [facility] Platelets 169 130 - 400 K/mcL LAB HEMETOLOGY METHOD 09/22/2024 8:29 AM [facility] MPV 9.2 7.0 - 11.0 FL LAB HEMETOLOGY METHOD 09/22/2024 8:29 AM [facility] NRBC 0.0 <1.0 % LAB HEMETOLOGY METHOD 09/22/2024 8:29 AM [facility] NRBC Absolute 0.00 <0.10 K/mcL LAB HEMETOLOGY METHOD 09/22/2024 8:29 AM [facility] Blood Venous blood specimen / Unknown Venipuncture / Unknown 09/22/2024 8:03 AM EST 09/22/2024 8:17 AM EST Tiffany KEITH LAB BLOOD ORDERABLES Final R esult [facility] [address] [place] [address], * (ABNORMAL) Comprehensive metabolic panel (09/22/2024 8:03 AM EST) Only the most recent of2 resultswithin the time period is included. Sodium 143 133 - 145 mmol/L LAB CHEMISTRY METHOD 09/22/2024 9:13 AM [facility] Potassium 3.7 3.5 - 5.5 mmol/L LAB CHEMISTRY METHOD 09/22/2024 9:13 AM [facility] Chloride 111(H) 96 - 110 mmol/L LAB CHEMISTRY METHOD 09/22/2024 9:13 AM [facility] CO2 26 21 - 32 mmol/L LAB CHEMISTRY METHOD 09/22/2024 9:13 AM [facility] Anion Gap 6 3 - 11 LAB CHEMISTRY METHOD 09/22/2024 9:13 AM [facility] Glucose 99 70 - 100 mg/dL LAB CHEMISTRY METHOD 09/22/2024 9:13 AM [facility] BUN 21 5 - 25 mg/dL LAB CHEMISTRY METHOD 09/22/2024 9:13 AM [facility] Creatinine 0.69 0.50 - 1.10 mg/dL LAB CHEMISTRY METHOD 09/22/2024 9:13 AM [facility] eGFR 85 >=60 mL/min/1. 73m2 LAB CHEMISTRY METHOD 09/22/2024 9:13 AM [facility] Comment:Calculation based on the??Chronic Kidney Disease Epidemiology Collaboration (CKD-EPI) equation refit??without adjustment for race. BUN/Creatinine Ratio 30.4 LAB CHEMISTRY METHOD 09/22/2024 9:13 AM [facility] Calcium 8.9 8.5 - 10.5 mg/dL LAB CHEMISTRY METHOD 09/22/2024 9:13 AM [facility] AST (SGOT) 16 10 - 42 unit/L LAB CHEMISTRY METHOD 09/22/2024 9:13 AM [facility] ALT (SGPT) 16 10 - 60 unit/L LAB CHEMISTRY METHOD 09/22/2024 9:13 AM [facility] Alkaline Phosphatase 58 42 - 121 unit/L LAB CHEMISTRY METHOD 09/22/2024 9:13 AM [facility] Total Protein 5.6(L) 6.0 - 8.0 g/dL LAB CHEMISTRY METHOD 09/22/2024 9:13 AM [facility] Albumin 3.3 3.2 - 5.0 g/dL LAB CHEMISTRY METHOD 09/22/2024 9:13 AM [facility] Total Bilirubin 1.1 0.0 - 1.4 mg/dL LAB CHEMISTRY METHOD 09/22/2024 9:13 AM [facility] Comment:Results verified by repeat testing Blood Venous blood specimen / Unknown Venipuncture / Unknown 09/22/2024 8:03 AM EST 09/22/2024 8:17 AM EST us Tiffany KEITH LAB BLOOD ORDERABLES Final R esult [facility] [address] [place] [address], * CT Angio Abdomen Pelvis wo and/or w Contrast (09/21/2024 5:20 PM EST) Anatomical Region Laterality Modality Body Computed Tomogra phy 09/21/2024 5:44 PM EST Impressions 09/21/2024 5:44 PM EST 1. No evidence of active gastrointestinal bleeding. 2. There is colonic diverticulosis without diverticulitis. This document has been electronically signed by: Alejandra Julian MD on 09/21/2024 17:44:33 Narrative 09/21/2024 5:44 PM EST INDICATION: GI bleed CT angiography abdomen and pelvis with contrast. 3-D post processing. Comparison: None Findings: There are atherosclerotic changes. There is no aneurysm or dissection. Major branches of the abdominal aorta are patent without stenosis. Moderately enlarged heart. Relative dilatation of the right atrium of the heart. Calcifications are present in association with the aortic valve. The lung bases are clear. There are multiple bilateral kidney cysts. There is a focus of scarring within the left kidney. There is moderate pancreatic volume loss. There are multiple small pancreatic cysts. The liver, spleen and adrenal glands are unremarkable. There has been a prior cholecystectomy. No bowel obstruction, pneumoperitoneum, or pneumatosis. Status post hysterectomy. Bilateral femoral hernias containing fat. Otherwise unremarkable pelvic contents. Normal appendix. The bones are intact. Procedure Note Alejandra Pichardo MD - 09/21/2024 INDICATION: GI bleed CT angiography abdomen and pelvis with contrast. 3-D post processing. Comparison: None Findings: There are atherosclerotic changes. There is no aneurysm or dissection. Major branches of the abdominal aorta are patent without stenosis. Moderately enlarged heart. Relative dilatation of the right atrium ofthe heart. Calcifications are present in association with the aortic valve. The lung bases are clear. There are multiple bilateral kidney cysts. There is a focus of scarring within the left kidney. There is moderate pancreatic volume loss. There are multiple small pancreatic cysts. The liver, spleen and adrenalglands are unremarkable. There has been a prior cholecystectomy. No bowel obstruction, pneumoperitoneum, or pneumatosis. Status post hysterectomy. Bilateral femoral hernias containing fat. Otherwise unremarkable pelvic contents. Normal appendix. The bones are intact. IMPRESSION: 1. No evidence of active gastrointestinal bleeding. 2. There is colonic diverticulosis without diverticulitis. This document has been electronically signed by: Alejandra Julian MD on 09/21/2024 17:44:33 us Srini Cisneros MD IMG CT PROCEDURES Final Result * SD CRITICAL CARE 30-74 MINUTES (09/21/2024 11:34 AM EST) Narrative Pierre Pompa MD - 09/21/2024 11:34 AM EST Pierre Pompa MD ? 09/21/2024 ??2:02 PM Critical Care Performed by: Pierre Pompa MD Authorized by: Pierre Pompa MD ?? Critical care provider statement: ??Critical care time (minutes): ??60 ??Critical care time was exclusive of: ??Separately billable procedures and treating other patients ??Critical care was necessary to treat or prevent imminent or life-threatening deterioration of the following conditions: ??Circulatory failure ??Critical care was time spent personally by me on the following activities: ??Development of treatment plan with patient or surrogate, discussions with consultants, examination of patient, obtaining history from patient or surrogate, ordering and performing treatments and interventions, ordering and review of laboratory studies, ordering and review of radiographic studies, re-evaluation of patient's condition and review of old charts ??I assumed direction of critical care for this patient from another provider in my specialty: no ?Care discussed with: admitting provider ?? Comments: ?? 2 units of packed red blood cell transfusion ordered. us Pierre Pompa MD IN CLINIC/BEDSIDE ORDERABLES Final Result * XR Shoulder 2+ Views Right (09/17/2024 [...] Signed Date: 09/17/2024 09:00 ET Workstation ID: [id number] Transcribed By: Self Edit Transcribed Date: 09/17/2024 [...] Signed Date: 09/17/2024 09:00 ET Workstation ID: [id number] Transcribed By: Self Edit Transcribed Date: 09/17/2024 08:54 ET Rylan Ortiz DO IMG XR PROCEDURES Final Resul t * EMMANUEL DEXA AXIAL SKELETON (04/24/2018 12:06 PM EDT) Anatomical Region Laterality Modality Mammography 04/24/2018 9:45 AM EDT Narrative 04/24/2018 12:[address] [facility] Diagnostic Imaging Department [address] [place] [id number] Patient: ??KRISTEN WAITE ?/Age/Sex: 1940 78 - F Unit#: ??[id number] ? Location/Status: ??SPDIMAM/REG CLI ? Mnemonic/Ordering Site: ??[facility]X/SPMAM Ordering Physician: ??RYLAN ORTIZ MD [facility] Dexa Axial Skeleton - 04/24/18 - 1014 HISTORY: ??The patient is an 78-year-old postmenopausal female with clinical concern for metabolic bone disease. FINDINGS: ??Dual energy x-ray absorptiometry of the lumbar spine and femurs is performed. The mean bone mineral density at L1-3 is 1.047 gm/cm2 which is 89% of that of young normals and 104% of that of age matched controls. This yields a T- score of -1.0 and a Z-score of 0.3 and there is therefore no evidence of osteoporosis or osteopenia here. The mean bone mineral density of the femurs bilaterally is 0.940 gm/cm2 which is 93% of that of young normals and 117% of that of age matched controls. ??This yields a T-score of -0.5 and a Z-score of 1.1 and there is therefore no evidence of osteoporosis or osteopenia here. However, the T-score of the right femoral neck is -1.2 and that of the left femoral neck is -1.1 which is diagnostic of osteopenia. IMPRESSION: 1. Osteopenia. ??There has been a decrease of 3.1% in bone mineral density in the lumbar spine since the prior examination of 02/22/2015. ??There has been a decrease of 8.2% in bone mineral density in the right femur and a decrease of 4.0% in bone mineral density in the left femur. 2. FRAX analysis yields a 10-year probability of major osteoporotic fracture of 11.8% and a 10-year probability of hip fracture of 2.4%. Code 53692 Dictating Physician: ??ESTHER MCNEILL MD Electronically Signed by: ??ESTHER MCNEILL MD Dic Date/Time: ??04/24/18 1203 Sign date/Time: ??04/24/18 1206 Procedure Note Esther Mcneill MD - 08/07/2022 [facility] Diagnostic Imaging Department [address] [place] [address] Patient: KRISTEN WAITEO.B./Age/Sex: 1940 - 78 - F Unit#: [id number] [facility] Ordering Physician: RYLAN ORTIZ MD [facility] Dexa Axial Skeleton - 04/24/18 - 1014 HISTORY: The patient is an 78-year-old postmenopausal female withclinical concern for metabolic bone disease. FINDINGS: Dual energy x-ray absorptiometry of the lumbar spine and femursis performed. The mean bone mineral density at L1-3 is 1.047 gm/cm2 which is89% of that of young normals and 104% of that of age matched controls. Thisyields a T- score of -1.0 and a Z-score of 0.3 and there is therefore no evidence of osteoporosis or osteopenia here. The mean bone mineral density of the femurs bilaterally is 0.940 gm/uz4upvkh is 93% of that of young normals and 117% of that of age matched controls.This yields a T-score of -0.5 and a Z-score of 1.1 and there is therefore noevidence of osteoporosis or osteopenia here. However, the T-score of the rightfemoral neck is -1.2 and that of the left femoral neck is -1.1 which is diagnosticof osteopenia. IMPRESSION: 1. Osteopenia. There has been a decrease of 3.1% in bone mineral densityin the lumbar spine since the prior examination of 02/22/2015. There has tyra decrease of 8.2% in bone mineral density in the right femur and a decreaseof 4.0% in bone mineral density in the left femur. 2. FRAX analysis yields a 10-year probability of major osteoporoticfracture of 11.8% and a 10-year probability of hip fracture of 2.4%. Code 88548 Dictating Physician: ESTHER MCNEILL MD Electronically Signed by: ESTHER MCNEILL MD Dic Date/Time: 04/24/18 1203 Sign date/Time: 04/24/18 1206 Rylan Ortiz DO [facility] BI PROCEDURES Final Resul t from Last 3 Months or Most Recently Relevant to Health Maintenance Insurance [employer] - [place] MEDICARE ADVANTAGE Advance Directives Documents on File Type Date Recorded Patient Branch Associate Teller Expl anation Advance Directives and Living Will 09/24/2024 11:13 AM Brian Sharyn Waite Health Care Proxy * Full Code - Default (Latest Code Status on File) Date Activated Date Inactivated Comments 09/21/2024 3:08 PM 09/26/2024 7:03 PM This is order is used when code status has not been discussed with the patient, or code status is otherwise unknown/unconfirmed To update the patient's code status, place a code status order. Do not modify or discontinue any currently active code status orders. Healthcare Agents on File Name Relationship Healthcare Agent Relationship Communication Brian Hanks Health Care Agent [email or web address] Farzana Hanks First Alternate Health Care Agent [email or web address] [email or web address] Care Teams Refuse Laborer Relationship Specialty Start Date End Date Rylan Ortiz DO [address] [place] [address] [phone] PCP - General 09/30/12
--- OUTSIDE RECORDS SUMMARY | 2024-09-29 16:21 | XMS_ITS | Clinical Summary ---
Author Organization [facility] Address [address] [place] [address] Care Team Providers Care Temple Marker Name Role Phone Rylan Ortiz DO Primary Care Provider [phone] Allergies No known active allergies Medications Medication Sig Dispensed Refills Start Date End Date Status levothyroxine (SYNTHROID, LEVOXYL) tablet 137 mcg 0 02/12/2018 Active simvastatin (ZOCOR) tablet 10 mg 0 04/01/2018 Active metoprolol succinate (TOPROL-XL) 24 hr tablet 50 mg 0 03/06/2018 Active JANTOVEN 5 MG tablet 0 01/24/2018 Acti ve hydrochlorothiazide (HYDRODIURIL) tablet 25 mg 0 02/12/2018 Active cephalexin (KEFLEX) 500 MG capsule 0 02/12/2018 Active Active Problems Problem Noted Date Diagnosed Date Arthritis of knee, right 08/20/2018 Social History Tobacco Use Types Packs/Day Years Used Date Smoking Tobacco: Never Assessed Sex and Gender Information Value Date Recorded Sex Assigned at Not on file Gender Identity Not on file Sexual Orientation Not on file Last Filed Vital Signs Vital Sign Reading Time Taken Comments Blood Pressure - - Pulse - - Temperature - - Respiratory Rate - - Oxygen Saturation - - Inhaled Oxygen Concentration - - Weight 78.9 kg (174 lb) 08/20/2018 1:01 PM EST Height 165.1 cm (5' 5 ) 08/20/2018 1:01 PM EST Body Mass Index 28.96 08/20/2018 1:01 PM EST Plan of Treatment Health Maintenance Due Date Last Done Comments COVID-19 Vaccine (#1) 1940 Depression Screening 1950 Preventative Health Evaluation 1956 DTap / Tdap / Td (1 - Tdap) 1957 Shingrix-Zoster Vaccine (1 of 2) 1988 Fall Risk Assessment 2003 Osteoporosis Screening (DEXA Scan) 2003 Pneumococcal Vaccine (1 of 1 - PCV) 2003 RSV Adult > 60+ Yrs or Pregn ant (1 - 1-dose 75+ series) 2013 Influenza Vaccine (#1) 2024 Hepatitis B Vaccines Aged Out No long er eligible based on patient's age to complete this topic RSV Ped < 20 months Aged Out No longe r eligible based on patient's age to complete this topic Care Teams Temple Marker Relationship Specialty Start Date End Date Rylan Ortiz DO [address] [place] [address] [address] [place] [address] PCP - General Internal Medicine 04/08/18
--- OUTSIDE RECORDS SUMMARY | 2024-09-29 16:22 | XMS_ITS | Encounter Summary ---
Author Organization [employer] Address [address] [place] [address] Care Team Providers Care News Department Intern Name Role Phone Rylan Ortiz Primary Care Provider [phone] Reason for Visit * Reason Comments Black or Bloody Stool * Auth/Cert (Routine) Specialty Diagnoses / Procedures Referred By Tirso ahuja Referred To Contact Diagnoses Gastrointestinal hemorrhage, unspecified gastrointestinal hemorrhage type Procedures [facility] IP/OBS CARE INITIAL MODERATE LEVEL PER DAY Srini Cisneros MD [address] [place] [address] Phone: tel: fax: [facility] [address] [place] [address] Phone: tel: Referral ID Status Reason Start Date Expiration Date Visits Re quested Visits Authorized [id number] 1 1 Encounter Details Date Type Department Care Team (Latest Contact Info) Description 09/21/2024 12:47 PM EST - 09/26/2024 4:58 PM EST Hospital Encounter [facility] [address] [place] [address] Pierre Pompa MD [address] [place] [address] Srini Cisneros MD [address] [place] [address] Tiffany Smalls MD [address] [place] [id number] Gastrointestinal hemorrhage, unspecified gastrointestinal hemorrhage type (Primary Dx); Gastrointestinal hemorrhage, unspecified Discharge Disposition: Home-Health Care Svc Social History Tobacco Use Types Packs/Day Years [...] PM EST documented as of this encounter Last Filed Vital Signs Vital Sign Reading [...] Mass Index 25.53 09/21/2024 11:37 AM EST documented in this encounter Discharge Summaries * SAGAR Flores - 09/26/2024 1:59 PM EST Date of admission 09/21/2024 Date of discharge 09/26/2024 Disposition: Home with [facility] services Discharge Final Diagnosis: Gastrointestinal hemorrhage, unspecified gastrointestinal hemorrhage type Hospital Course: From HPI: This is an 84-year-old [place] African speaking female with past medical history significant for atrial fibrillation on Coumadin, history of right lower extremity DVT, hypertension, hyperlipidemia, peripheral vascular disease, diabetes mellitus, hypothyroidism, depression, kyphoscoliosis, amongst others, who presents emergency room with complaints of maroon stools. Patient is [place] African speaking only requiring use of electronic translator/interpreter Tyche #[id number], limiting H&P. Patient states that last week she experienced constipation with straining which led to bloody bowel movements starting on 09/16/2024 or , 09/17/2024 last week. She initially held her Coumadin, though restarted 1 day later. Reports she has been experiencing ongoing bloody bowel movements since. Reports associated symptoms of generalized weakness, fatigue, lightheadedness, dizziness and pale skin tone. Reports her appetite has been at baseline. Today she presented for appointment with her primarycare provider and was recommended to go to the emergency room for further evaluation and treatment.Of note patient states she had a colonoscopy occurring 4 years ago, though cannot further elaborate. Denies fever, chills, focal weakness, headache, shortness of breath, cough, chest pain, abdominal pain, nausea, vomiting, dysuria. Denies recent travel or sick contacts. Upon H&P patient is afebrile, heart rate 77, respiratory rate 18, blood pressure 145/59, oxygensaturation 100% on room air. Labs performed revealing WBC 11.3 with H&H 6.0/18.0, neutrophils 9.66, BUN 34 with creatinine 0.94, potassium 3.2, INR 2.9. Abdomen/pelvis CT imaging pending at this time. Patient was evaluated by Gastroenterology, and care subsequently transferred to the medical service for further evaluation and treatment. GI bleed Acute blood loss normocytic anemia: H&H on arrival 6.0/18.0. CT angio abdomen and pelvis showedno active GI hemorrhage with colonic diverticulosis without diverticulitis. She was seen by GI and is status post EGD/colonoscopy 09/23. EGD was negative. Colonoscopy showed diverticulosis in the sigmoid colon with fresh blood in the entire examined colon with nonbleeding internal hemorrhoids. Coumadin was held throughout hospitalization and she was treated with IV PPI. She received a total of 6 unit PRBC and 1 unit FFP along with 5 mg p.o. vitamin K. Hemoglobin this morning was 7.1 and she received 1 unit today on 09/26 with repeat hemoglobin stable 8.0, hematocrit 24.6. She is no longer havingany blood in her stool just a small amount of blood on the toilet paper when she wipes. She is tolerating soft diet. Clinically suspect diverticular bleed. Recommend to continue to hold Coumadin upondischarge for at least 1 week then can discuss with primary care when and if to resume this cautiously. As her symptoms initially started with some constipation I recommend initiation of docusate 100 mg twice daily, MiraLAX 17 g daily and lactulose 20 g daily as needed for constipation upon discharge. PCP follow-up recommended within 1-2 weeks. Recommend repeat CBC be drawn by [facility] on Saturday09/28/24 with results to be forwarded to Dr. Rylan Ortiz. *Of note, patient had already received blood by the time I saw her on 09/22 and therefore iron studies were not performed as they would not be accurate on posttransfusion blood. Would recommend iron studies as an outpatient with PCP to determine if she would benefit from initiation of iron supplement. Hypokalemia: Potassium on arrival 3.2. Replaced. Repeat potassium stable 4.2 on 09/26. Leukocytosis-resolved. WBC on arrival 11.3, resolved by later that evening to 5.7 and remains WNL. Suspect reactive. No signs or symptoms of infection. Atrial fibrillation Secondary hypercoagulable state: INR on arrival 2.9. She was administered 5 mg p.o. vitamin K also received 1 unit FFP. INR 1.1 on 09/26. She continues on metoprolol succinate, reduced to 25 mg daily. Coumadin remains on hold and resumption will be deferred to PCP outpatient. Repeat INR 1.9 on 09/23 Hypertension: Continue metoprolol succinate reduced to 25 mg daily and continue HCTZ 25 mg daily. Hyperlipidemia: Continue statin Hypothyroidism: Continue levothyroxine Procedures Performed: EGD and colonoscopy Outpatient Follow-Up Care: No future appointments. Discharge Medication List: Your medication list ASK your doctor about these medications Instructions Last Dose Given Next Dose Due hydroCHLOROthiazide 25 mg tablet Commonly known as: HYDRODIURIL Take 1 tablet (25 mg total) by mouth 1 (one) time each day. levothyroxine 175 mcg tablet Commonly known as: SYNTHROID, LEVOTHROID Take 1 tablet (175 mcg total) by mouth 1 (one) time each day before breakfast. metoprolol succinate 50 mg 24 hr tablet Commonly known as: TOPROL-XL Take 1 tablet (50 mg total) by mouth 1 (one) time each day. simvastatin 10 mg tablet Commonly known as: ZOCOR Take 1 tablet (10 mg total) by mouth at bedtime. warfarin 5 mg tablet Commonly known as: COUMADIN Take 1 tablet (5 mg total) by mouth 1 (one) time each day with dinner. Patient Condition and Disposition at Time of Discharge: Patient was seen and examined this morning at bedside Denies any abdominal pain, nausea or vomiting No dizziness, weakness, chest pain or shortness of breath Reports she had a small bowel movement this morning which did not have any blood in it just a smallamount of blood on the toilet paper when she wiped Vitals: 09/26/24 1140 BP: 135/63 Pulse: 71 Resp: 16 Temp: 36.2 ??C (97.2 ??F) SpO2: Physical Exam General Exam: Age-appropriate female, awake, calm, cooperative, sitting on the edge of the hospitalbed in no acute distress Skin Exam: Warm, dry and intact without diaphoresis. No rashes appreciated HEENT exam: Head appears atraumatic. No scleral icterus. Respiratory Exam: Clear to auscultation bilaterally. Cardiovascular Exam: Regular rate and rhythm. + Murmur Gastrointestinal Exam: Abdomen is soft, nontender, and nondistended. BS appreciated. Musculoskeletal Exam: No lower extremity edema is appreciated. Neurological Exam: Alert and oriented x 3. Lab Results Component Value Date WBC 5.2 09/26/2024 HGB 8.0 (L) 09/26/2024 HCT 24.6 (L) 09/26/2024 MCV 94.8 09/26/2024 PLT 152 09/26/2024 Lab Results Component Value Date GLUCOSE 95 09/26/2024 CALCIUM 8.3 (L) 09/26/2024 NA 143 09/26/2024 K 4.2 09/26/2024 CO2 29 09/26/2024 CL 112 (H) 09/26/2024 BUN 21 09/26/2024 CREATININE 0.62 09/26/2024 CT Angio Abdomen Pelvis wo and/or w Contrast Final Result 1. No evidence of active gastrointestinal bleeding. 2. There is colonic diverticulosis without diverticulitis. This document has been electronically signed by: Alejandra Julian MD on 09/21/2024 17:44:33 Discharge Instructions: Discharge Procedure Orders Complete blood count Standing Status: Future Standing Exp. Date: 09/26/25 Order Comments: CC results to PCP Dr Ortiz Total time spent performing chart review, assessing the patient, documenting, discussing with attending MD/bedside RN/ICC, updating family, arranging care and performing a high level of medical decision making approximately 40 minutes. Case discussed with Dr. Smalls. Cosigned by Tiffany Smalls MD at 09/27/2024 2:59 PM EST Associated attestation - Tiffany Smalls MD - 09/27/2024 2:59 PM EST This is a split/shared visit with SAGAR Flores. I personally performed the medical decision making (MDM) for the care of this patient on 09/26/24 as documented below Patient seen and examined at the bedside, I independently interviewed the patient, performed physical examination, reviewed pertinent studies and performed clinical decision making. Care reviewed with SAGAR Oviedo, plan as below. Medically stable for DC, no longer with bloody BM - scant blood with toilet paper, stool brown. She is without dizziness or CP, H and H with adequate improvement after last transfusion. DC with close follow up with PCP with repeat labs, further coumadin per direction of PCP, prob can be restarted once bleeding fully stopped and hg remains stable. Tiffany Smalls MD 09/27/24 2:54 PM EST documented in this encounter Discharge Instructions * Discharge Instructions* SAGAR Flores - 09/26/2024 1:58 PM EST Stop taking your Coumadin for now as discussed for at least 1 week then discuss with Dr. Ervin it is safe to resume if he recommends resuming it Begin bowel regimen including docusate 100 mg twice daily, MiraLAX 17 g daily. Use lactulose 20 g daily as needed for constipation Decrease your metoprolol succinate to 25 mg daily I have asked visiting nurse to draw a repeat CBC on Saturday and send results to Dr. Ortiz Follow-up with primary care as recommended within 1-2 weeks Return to the ED with any new or worsening symptoms. * Attachments The following attachments cannot be sent through Care Everywhere. * Diverticulosis (Samoan) documented in this encounter Medications at Time of Discharge docusate sodium (COLACE) 100 mg capsule Take 1 capsule (100 mg total) by mouth 2 (two) times a day. 60 each 09/26/2024 10/26/2024 hydroCHLOROthiazi de (HYDRODIURIL) 25 mg tablet Take 1 tablet (25 mg total) by mouth 1 (one) time each day. 02/12/2018 lactulose (CHRONULAC) solution Take 30 mL (20 g total) by mouth 1 (one) time each day if needed (constipation ). 480 mL 09/26/2024 10/26/2024 levothyroxine (SYNTHROID, LEVOTHROID) 175 mcg tablet Take 1 tablet (175 mcg total) by mouth 1 (one) time each day before breakfast. 08/21/2024 metoprolol succinate (TOPROL-XL) 50 mg 24 hr tablet Take 0.5 tablets (25 mg total) by mouth 1 (one) time each day. 15 each 09/26/2024 10/26/2024 polyethylene glycol (MIRALAX) 17 gram packet Take 17 g by mouth 1 (one) time each day. 510 g 09/26/2024 10/26/2024 simvastatin (ZOCOR) 10 mg tablet Take 1 tablet (10 mg total) by mouth at bedtime. 04/01/2018 documented as of this encounter Ordered Prescriptions Prescription Sig Dispense Quantity Refills Last Filled Start Date End Date lactulose (CHRONULAC) solution Take 30 mL (20 g total) by mouth 1 (one) time each day if needed (constipation ). 480 mL 09/26/2024 5 polyethylene glycol (MIRALAX) 17 gram packet Take 17 g by mouth 1 (one) time each day. 510 g 09/26/2024 5 docusate sodium (COLACE) 100 mg capsule Take 1 capsule (100 mg total) by mouth 2 (two) times a day. 60 each 09/26/2024 5 metoprolol succinate (TOPROL-XL) 50 mg 24 hr tablet Take 0.5 tablets (25 mg total) by mouth 1 (one) time each day. 15 each 09/26/2024 5 documented in this encounter Discharge Disposition Disposition Code Departure Means Destination Home-Health Care c documented in this encounter Progress Notes * Gustavo Maldonado RN - 09/26/2024 4:35 PM EST Problem: Fluid Volume: Bleeding Risk Goal: Will show no signs and symptoms of excessive bleeding Outcome: Adequate for Discharge Problem: Cognitive: Bleeding Risk Goal: Ability to state signs and symptoms to report to health care provider will improve Outcome: Adequate for Discharge Problem: Falls: Fall Risk (Adult IP BH) Goal: (Goal) Patient will experience maximum safety and reduce risk for falls. Outcome: Adequate for Discharge Goal: Patient will not fall or injure themselves during hospitalization. Outcome: Adequate for Discharge Problem: Cognitive: Kylah Tanner Fall Risk Goal: Last Known Fall Outcome: Adequate for Discharge Goal: Mobility requiring assistance of person or device Outcome: Adequate for Discharge Goal: Dizziness Outcome: Adequate for Discharge Goal: Medications Outcome: Adequate for Discharge Goal: Mental Status/LOC/Awareness Outcome: Adequate for Discharge Goal: Toileting Needs Outcome: Adequate for Discharge Goal: Volume and Electrolyte Status Outcome: Adequate for Discharge Goal: Communication/Sensory Outcome: Adequate for Discharge Goal: Behavior Outcome: Adequate for Discharge Goals: Identify possible barriers to meeting goals/advancing plan of care: Clear for d/c Stability of the patient: Moderately Stable - Low risk of patient condition declining or worsening End of Shift Summary: Pt calm and cooperative w/ care this shift. Hgb low in AM, x1 unit PRBC ordered and given, repeat Hgb 8.0. Pt clear for d/c after repeat H&H, outpt f/u teaching explained topt and pt son at bedside. * Judy Batista RN - 09/26/2024 2:55 PM EST 09/26/24 1450 Transportation Transportation at discharge Family Final Discharge Disposition Home Health Care Services Pt medically cleared for discharge. Dispo is home with family and Tanya WHITEA. Family to transport. * Anny [place] RN - 09/26/2024 5:08 AM EST Problem: Fluid Volume: Bleeding Risk Goal: Will show no signs and symptoms of excessive bleeding Outcome: Progressing Problem: Cognitive: Bleeding Risk Goal: Ability to state signs and symptoms to report to health care provider will improve Outcome: Progressing Problem: Falls: Fall Risk (Adult IP BH) Goal: (Goal) Patient will experience maximum safety and reduce risk for falls. Outcome: Progressing Goal: Patient will not fall or injure themselves during hospitalization. Outcome: Progressing Problem: Cognitive: Montero Ciro Fall Risk Goal: Last Known Fall Outcome: Progressing Goal: Mobility requiring assistance of person or device Outcome: Progressing Goal: Dizziness Outcome: Progressing Goal: Medications Outcome: Progressing Goal: Mental Status/LOC/Awareness Outcome: Progressing Goal: Toileting Needs Outcome: Progressing Goal: Volume and Electrolyte Status Outcome: Progressing Goal: Communication/Sensory Outcome: Progressing Goal: Behavior Outcome: Progressing Goals: To stabilize H&H and amt of bloody stools Identify possible barriers to meeting goals/advancing plan of care: Hx of divericulitis Stability of the patient: Moderately Unstable - Medium risk of patient condition declining or worsening End of Shift Summary: Pt alert and oriented and pleasant with care. No bloody stools overnight currently. Quiet overnight; no issues. VSS ; no c/o pain. * Linsey Cadena RN - 09/25/2024 7:30 PM EST Problem: Fluid Volume: Bleeding Risk Goal: Will show no signs and symptoms of excessive bleeding Outcome: Progressing Problem: Cognitive: Bleeding Risk Goal: Ability to state signs and symptoms to report to health care provider will improve Outcome: Progressing Problem: Falls: Fall Risk (Adult IP BH) Goal: (Goal) Patient will experience maximum safety and reduce risk for falls. Outcome: Progressing Goal: Patient will not fall or injure themselves during hospitalization. Outcome: Progressing Problem: Cognitive: Montero Ciro Fall Risk Goal: Last Known Fall Outcome: Progressing Goal: Mobility requiring assistance of person or device Outcome: Progressing Goal: Dizziness Outcome: Progressing Goal: Medications Outcome: Progressing Goal: Mental Status/LOC/Awareness Outcome: Progressing Goal: Toileting Needs Outcome: Progressing Goal: Volume and Electrolyte Status Outcome: Progressing Goal: Communication/Sensory Outcome: Progressing Goal: Behavior Outcome: Progressing Goals: Identify possible barriers to meeting goals/advancing plan of care: blood tx, H&H monitoring Stability of the patient: Moderately Stable - Low risk of patient condition declining or worsening End of Shift Summary: vss, pt received 1U PRBC * Sun Rodriguez RN - 09/25/2024 3:18 PM EST CM Progress Note SANTY: 09/26-09/27 Barriers: Stabilization of H&H- transfusing Plan: HOME HEALTH-[facility], refusing SNF * SAGAR Flores - 09/25/2024 11:28 AM EST Subjective Patient was seen and examined this morning at bedside. Reports she had 1 stool overnight with a small amount of blood and 2 stools this morning with a small amount of blood, mostly on the toilet paper when she wipes. Per RN has a small amount of blood inthe toilet surrounding the stool. She denies any dizziness, shortness of breath, chest pain, abdominal pain or nausea Objective Physical Exam General Exam: Age-appropriate female, awake, calm, cooperative, sitting on the edge of the hospitalbed in no acute distress Skin Exam: Warm, dry and intact without diaphoresis. No rashes appreciated HEENT exam: Head appears atraumatic. No scleral icterus. Respiratory Exam: Clear to auscultation bilaterally. Cardiovascular Exam: Regular rate and rhythm. + Murmur Gastrointestinal Exam: Abdomen is soft, nontender, and nondistended. BS appreciated. Musculoskeletal Exam: No lower extremity edema is appreciated. Neurological Exam: Alert and oriented x 3. Last Recorded Vitals: Blood pressure 100/62, pulse 77, temperature 36.7 ??C (98 ??F), resp. rate 16, height 1.702 m (67 ), weight 73.9 kg (163 lb), SpO2 100%. Medications: atorvastatin, 10 mg, oral, Nightly levothyroxine, 175 mcg, oral, q AM AC metoprolol succinate, 50 mg, oral, Daily pantoprazole, 40 mg, intravenous, q12h sodium chloride, 10 mL, intravenous, BID PRN medications: acetaminophen, ondansetron, Insert peripheral IV AND Maintain IV access AND Saline lock IV AND sodium chloride AND sodium chloride, sodium chloride, sodium chloride, sodium chloride, sodium chloride Lab Results Component Value Date WBC 5.3 09/25/2024 HGB 6.3 (LL) 09/25/2024 HCT 19.4 (LL) 09/25/2024 MCV 94.1 09/25/2024 PLT 149 09/25/2024 Lab Results Component Value Date GLUCOSE 94 09/25/2024 CALCIUM 8.2 (L) 09/25/2024 NA 143 09/25/2024 K 4.0 09/25/2024 CO2 30 09/25/2024 CL 110 09/25/2024 BUN 22 09/25/2024 CREATININE 0.60 09/25/2024 CT Angio Abdomen Pelvis wo and/or w Contrast Final Result 1. No evidence of active gastrointestinal bleeding. 2. There is colonic diverticulosis without diverticulitis. This document has been electronically signed by: Alejandra Julian MD on 09/21/2024 17:44:33 Assessment/Plan This is an 84-year-old female with a past medical history of atrial fibrillation on Coumadin, history of right lower extremity DVT, hypertension, hyperlipidemia, PVD, diabetes, hypothyroidism, depression, kyphoscoliosis who presented to the ED due to maroon-colored stools. Upon arrival to the ED she was tachycardic but otherwise hemodynamically stable. Lab workup showed anemia with initial hemoglo bin 6.0 and mild leukocytosis and hypokalemia. INR noted to be 2.9. She underwent CT angio abdomen and pelvis showing no active GI bleeding and she was subsequently admitted to the medical service for further management. GI bleed Acute blood loss anemia H&H on arrival 6.0/18.0. CT angio abdomen and pelvis showed no active GI hemorrhage with colonic diverticulosis without diverticulitis Status post EGD/colonoscopy 09/23. EGD was negative. Colonoscopy showed diverticulosis in the sigmoidcolon with blood in the entire examined colon with nonbleeding internal hemorrhoids. Repeat H&H 6.3/19.4 on 09/25 status post 4 unit PRBC this admission and 1 unit FFP. --Transfuse 1 unit PRBC --Soft diet --Repeat H&H 3 PM --Transfuse for hemoglobin less than 7 --PPI IV twice daily --CTA abdomen and pelvis with any active bleeding --Monitor for recurrent bleeding --CBC in AM Hypokalemia Potassium on arrival 3.2. Replaced. Repeat potassium stable 4.0 on 09/25 --Repeat BMP in a.m. Leukocytosis-resolved WBC on arrival 11.3, resolved by later that evening to 5.7, stable 7.1 in the morning on 09/22 Suspect reactive No signs or symptoms of infection Atrial fibrillation Secondary hypercoagulable state INR on arrival 2.9. She was administered 5 mg p.o. vitamin K Repeat INR 1.9 on 09/23 --Continue metoprolol succinate 50 mg p.o. daily with holding parameters --Coumadin on hold due to GI bleed Hypertension --Continue metoprolol succinate 50 mg daily with holding parameters --Hold HCTZ Hyperlipidemia -- Continue statin Hypothyroidism -- Continue levothyroxine CODE STATUS: Full code DVT prophylaxis: SCDs. Hold chemical DVT prophylaxis due to GI bleed HCP is patient's son, Yocasta [phone]. Updated at bedside in the morning on 09/25 Total time spent performing chart review, assessing the patient, documenting, discussing with attending MD/bedside RN/ICC, updating family, arranging care and performing a high level of medical decision making approximately 35 minutes. Case discussed with Dr. Smalls. Disposition: Anticipate DC in 24 hours if no further bleeding and H&H stable 09/26 Cosigned by Tiffany Smalls MD at 09/26/2024 4:31 PM EST Associated attestation - Tiffany Smalls MD - 09/26/2024 4:31 PM EST This is a split/shared visit with SAGAR Flores. I personally performed the medical decision making (MDM) for the care of this patient on 09/25/24 as documented below Patient seen and examined at the bedside, I independently interviewed the patient, performed physical examination, reviewed pertinent studies and performed clinical decision making. Care reviewed with SAGAR Oviedo, plan as below. Tiffany Smalls MD 09/26/24 4:30 PM EST * Anny [place] RN - 09/25/2024 2:35 AM EST Problem: Fluid Volume: Bleeding Risk Goal: Will show no signs and symptoms of excessive bleeding Outcome: Progressing Problem: Cognitive: Bleeding Risk Goal: Ability to state signs and symptoms to report to health care provider will improve Outcome: Progressing Problem: Falls: Fall Risk (Adult IP BH) Goal: (Goal) Patient will experience maximum safety and reduce risk for falls. Outcome: Progressing Goal: Patient will not fall or injure themselves during hospitalization. Outcome: Progressing Problem: Cognitive: Kylah Tanner Fall Risk Goal: Last Known Fall Outcome: Progressing Goal: Mobility requiring assistance of person or device Outcome: Progressing Goal: Dizziness Outcome: Progressing Goal: Medications Outcome: Progressing Goal: Mental Status/LOC/Awareness Outcome: Progressing Goal: Toileting Needs Outcome: Progressing Goal: Volume and Electrolyte Status Outcome: Progressing Goal: Communication/Sensory Outcome: Progressing Goal: Behavior Outcome: Progressing Goals: To resolve bloody stools Identify possible barriers to meeting goals/advancing plan of care: Hx of diverticulitis Stability of the patient: Moderately Stable - Low risk of patient condition declining or worsening End of Shift Summary: Pt alert and oriented; pleasant and cooperative with care. No c/o pain. VSS. Pt OOB to BR with SBA. A small BM was noted with a little blood. Rings appropriately. Sleeping at this time * SAGAR Flores - 09/24/2024 2:54 PM EST Subjective Patient was seen and examined this morning at bedside. She reports she is still passing some blood but less Per RN, overnight had 1 quin bloody/loose stool and this morning had a small bowel movement with small amount of red blood around it. Patient denies any abdominal pain, nausea or vomiting States she is slightly dizzy when she walks but weakness improved No chest pain or shortness of breath Objective Physical Exam General Exam: Age-appropriate female, awake, calm, cooperative, laying in the hospital bed in no acute distress Skin Exam: Warm, dry and intact without diaphoresis. No rashes appreciated HEENT exam: Head appears atraumatic. No scleral icterus. Respiratory Exam: Clear to auscultation bilaterally. Cardiovascular Exam: Regular rate and rhythm. + Murmur Gastrointestinal Exam: Abdomen is soft, nontender, and nondistended. BS appreciated. Musculoskeletal Exam: No lower extremity edema is appreciated. Neurological Exam: Alert and oriented to person place and situation. Last Recorded Vitals: Blood pressure 113/53, pulse 67, temperature 37.2 ??C (99 ??F), resp. rate 17, height 1.702 m (67 ), weight 73.9 kg (163 lb), SpO2 99%. Medications: atorvastatin, 10 mg, oral, Nightly levothyroxine, 175 mcg, oral, q AM AC metoprolol succinate, 50 mg, oral, Daily pantoprazole, 40 mg, intravenous, q12h sodium chloride, 10 mL, intravenous, BID PRN medications: acetaminophen, ondansetron, Insert peripheral IV AND Maintain IV access AND Saline lock IV AND sodium chloride AND sodium chloride, sodium chloride, sodium chloride, sodium chloride Lab Results Component Value Date WBC 6.9 09/24/2024 HGB 7.3 (L) 09/24/2024 HCT 22.1 (L) 09/24/2024 MCV 93.2 09/24/2024 PLT 158 09/24/2024 Lab Results Component Value Date GLUCOSE 110 (H) 09/24/2024 CALCIUM 8.5 09/24/2024 NA 143 09/24/2024 K 4.0 09/24/2024 CO2 29 09/24/2024 CL 112 (H) 09/24/2024 BUN 19 09/24/2024 CREATININE 0.71 09/24/2024 CT Angio Abdomen Pelvis wo and/or w Contrast Final Result 1. No evidence of active gastrointestinal bleeding. 2. There is colonic diverticulosis without diverticulitis. This document has been electronically signed by: Alejandra Julian MD on 09/21/2024 17:44:33 Assessment/Plan This is an 84-year-old female with a past medical history of atrial fibrillation on Coumadin, history of right lower extremity DVT, hypertension, hyperlipidemia, PVD, diabetes, hypothyroidism, depression, kyphoscoliosis who presented to the ED due to maroon-colored stools. Upon arrival to the ED she was tachycardic but otherwise hemodynamically stable. Lab workup showed anemia with initial hemoglo bin 6.0 and mild leukocytosis and hypokalemia. INR noted to be 2.9. She underwent CT angio abdomen and pelvis showing no active GI bleeding and she was subsequently admitted to the medical service for further management. GI bleed Acute blood loss anemia H&H on arrival 6.0/18.0. CT angio abdomen and pelvis showed no active GI hemorrhage with colonic diverticulosis without diverticulitis POD #1 status post EGD/colonoscopy. EGD was negative. Colonoscopy showed diverticulosis in the sigmoid colon with blood in the entire examined colon with nonbleeding internal hemorrhoids. Repeat H&H is 7.3/22.1 on 09/24 status post 4 unit PRBC this admission and 1 unit FFP. --Soft diet --Repeat H&H 3 PM --Transfuse for hemoglobin less than 7 --PPI IV twice daily --CTA abdomen and pelvis with any active bleeding --Monitor for recurrent bleeding overnight --CBC in AM Hypokalemia Potassium on arrival 3.2. Replaced. Repeat potassium stable 4.0 on 09/24 --Repeat BMP in a.m. Leukocytosis-resolved WBC on arrival 11.3, resolved by later that evening to 5.7, stable 7.1 in the morning on 09/22 Suspect reactive No signs or symptoms of infection Atrial fibrillation Secondary hypercoagulable state INR on arrival 2.9. She was administered 5 mg p.o. vitamin K Repeat INR 1.9 on 09/23 --Continue metoprolol succinate 50 mg p.o. daily with holding parameters --Coumadin on hold due to GI bleed Hypertension SBP 110s to 130s on 09/24 --Continue metoprolol succinate 50 mg daily with holding parameters --Hold HCTZ for now Hyperlipidemia -- Continue statin Hypothyroidism -- Continue levothyroxine CODE STATUS: Full code DVT prophylaxis: SCDs. Hold chemical DVT prophylaxis due to concern for GI bleed HCP is patient's son, Yocasta [phone]. Updated at bedside in the morning on 09/24 Total time spent performing chart review, assessing the patient, documenting, discussing with attending MD/bedside RN/ICC, updating family, arranging care and performing a high level of medical decision making approximately 38 minutes. Case discussed with Dr. Smalls. Disposition: Anticipate DC in 24 hours if no further bleeding and uptrending H&H. Cosigned by Tiffany Smalls MD at 09/24/2024 3:28 PM EST Associated attestation - Tiffany Smalls MD - 09/24/2024 3:28 PM EST This is a split/shared visit with SAGAR Flores. I personally performed the medical decision making (MDM) for the care of this patient on 09/24/24 as documented below Patient seen and examined at the bedside, I independently interviewed the patient, performed physical examination, reviewed pertinent studies and performed clinical decision making. Care reviewed with SAGAR [place], plan as below. Monitor next 24h, hopefully bleeding will continue to subside. I met with one of her sons, care reviewed, he wanted to see if he and his mom could complete HCP form, CM notified. Tiffany Smalls MD 09/24/24 3:26 PM EST * Aileen Newsome, PT - 09/24/2024 2:30 PM EST [facility] Physical Therapy Evaluation & Treatment Staff Recommendations for safe patient handling: supervision with no assistive device Modified Alyson Scale Score: Precautions Medical Precautions: Fall Risk Safety Interventions: Call falk within reach, ID band on, Chair alarm RUE Weight Bearing Status: Full LUE Weight Bearing Status: Full RLE Weight Bearing Status: Full LLE Weight Bearing Status: Full Fall prevention education provided including use of call light in hospital, use of appropriate assistive device, safe mobility techniques, and safety measures at home. PT Received On: 09/24/24 PT Start Time: 1430 PT Stop Time: 1500 PT Time Calculation (min): 30 min General Family/Caregiver Present: No Precautions Medical Precautions: Fall Risk Safety Interventions: Call falk within reach, ID band on, Chair alarm RUE Weight Bearing Status: Full LUE Weight Bearing Status: Full RLE Weight Bearing Status: Full LLE Weight Bearing Status: Full Cognition Overall Cognitive Status: Within Functional Limits Arousal/Alertness: Appropriate responses to stimuli Orientation Level: Oriented X4 Following Commands: Follows all commands and directions without difficulty Hearing: Intact Vision: Intact Speech: Intact Integumentary: no acute issues noted History of Present Illness: Patient is a 84 y.o. female admitted to [facility] on 09/21/2024. Patient Active Problem List Diagnosis Gastrointestinal hemorrhage, unspecified gastrointestinal hemorrhage type Past Medical History: Diagnosis Date Atrial fibrillation ([facility]) Depression DX:Depression Diabetes mellitus, type II ([facility]) DX:Diabetes mellitus, type II ([facility]) Essential hypertension DX:Essential hypertension Family history of cardiovascular disease DX:Family history of cardiovascular disease Hyperlipidemia DX:Hyperlipidemia Hypothyroid Kyphoscoliosis OA (osteoarthritis) of knee DX:OA (osteoarthritis) of knee Past Surgical History: Procedure Laterality Date HAND SURGERY HYSTERECTOMY Social History Home Living Environment: Home Living Type of Home: House Lives With: Spouse, Son Home Adaptive Equipment: None Home Living Comments: the pt stays on the first floor Home Layout: Two level, Able to live on main level with bedroom/bathroom Home Access: Level entry Prior Function Level of [place]: Independent with mobility and functional transfers Ambulation Status: Household ambulator Receives Help From: Family Indoor Mobility Assistance: Independent Prior Device Use: No prior device use Which is your dominant hand?: Right General Assessment 09/24/24 1430 PT Last Visit PT Received On 09/24/24 General Family/Caregiver Present No PT Time Calculation PT Start Time 1430 PT Stop Time 1500 PT Time Calculation (min) 30 min Precautions Medical Precautions Fall Risk Safety Interventions Call falk within reach;ID band on;Chair alarm RUE Weight Bearing Status Full LUE Weight Bearing Status Full RLE Weight Bearing Status Full LLE Weight Bearing Status Full Vital Signs Patient Identification Yes Pain Assessment Pain Assessment No/denies pain Cognition Overall Cognitive Status WFL Arousal/Alertness Appropriate responses to stimuli Orientation Level Oriented X4 Following Commands Follows all commands and directions without difficulty Home Living Type of Home House Lives With Spouse;Son Home Adaptive Equipment None Home Living Comments the pt stays on the first floor Home Layout Two level;Able to live on main level with bedroom/bathroom Home Access Level entry Prior Function Level of [place] Independent with mobility and functional transfers Ambulation Status Household ambulator Receives Help From Family Indoor Mobility Assistance Independent Prior Device Use No prior device use Which is your dominant hand? Right Static Sitting Balance Static Sitting-Level of Assistance Independent Dynamic Sitting Balance Dynamic Sitting-Level of Assistance Independent Static Standing Balance Static Standing-Level of Assistance Independent Static Standing-Balance Support No upper extremity supported Dynamic Standing Balance Dynamic Standing-Level of Assistance Supervision Dynamic Standing-Balance Ambulation Dynamic Standing-Balance Support No upper extremity supported Bed Mobility Rolling Left and Right Assistance Independent Sitting to Lying Assistance Independent Lying to Sitting Assistance Independent Transfers Sit to Stand Assistance Independent Chair/Bed to Chair/Bed Transfer Assistance Independent Ambulation Walking Assistance Supervision Walking Deficit (the pt has an antalgic gait R with lateral weigth shift. Reports mild fatigue after ambulation) Device No device Distance Ambulated (ft) 50 RUE Assessment RUE Assessment Within Functional Limits LUE Assessment LUE Assessment Within Functional Limits RLE Assessment RLE Assessment Within Functional Limits LLE Assessment LLE Assessment Within Functional Limits PT Assessment PT Assessment Results At baseline Evaluation/Treatment Tolerance Patient tolerated treatment well Medical Staff Made Aware Yes Plan PT - Evaluation Status Complete PT - OK to Discharge Yes PT Evaluation Time Entry PT Evaluation (Moderate) Time Entry 30 Treatment performed during evaluation: None performed ADDITIONAL COMMENTS: Chart reviewed. RN clears pt for session. Pt agrees to participate and presented in supine upon PT arrival. All lines in place. Medical precautions observed appropriately. Mild fatigue noted after ambulation but no overt loss of balance noted Initiated education on the importance of PT, bed mobility safety, Transfer Safety, Ambulation Safety , Therapy Plan of Care, Home Safety, Energy Conservations strategies, and importance of OOB activity . Pt verbalized understanding. EXIT STATUS: Session ended with patient seated in bedside chair , tray table and call light within reach, chair alarm in place and RN made aware. Physical Therapy Assessment/Plan Kristen Waite is a 84 y.o. female admitted to [facility] on 09/21/2024 for Gastrointestinalhemorrhage, unspecified gastrointestinal hemorrhage type [K92.2] . Pt presents with decreased BLE strength, balance deficits, decreased activity tolerance, and far below functional baseline. Pt performed bed mobility Independent, , Transfers with Independent, None and ambulates Supervision with None 50 ft . PT recommends when medically stable for safe discharge and to optimize functional mobilityand independence. Goals Encounter Problems Encounter Problems (Active) There are no active problems. Encounter Problems (Resolved) There are no resolved problems. Education Documentation Mobility Training, taught by Aileen Newsome PT at 09/24/2024 4:04 PM. Learner: Patient Readiness: Eager Method: Explanation Response: Verbalizes Understanding Comment: Discussed discharge plans and the pt is comfortable with discharge to home with no additional services Education Comments No comments found. Aileen Newsome PT * Reema Henson RN - 09/24/2024 11:18 AM EST Goals: Go home Identify possible barriers to meeting goals/advancing plan of care: Bloody stools Stability of the patient: Moderately Stable - Low risk of patient condition declining or worsening End of Shift Summary: * Hill Prado MD - 09/24/2024 9:57 AM EST GI PROGRESS NOTE Acute overnight events: Patient states she is feeling better this morning. She notes a little bit of old blood when she wipes . She clearly relates it is not coming out as previous. She denies any quin abdominal pain. Shereportedly is taking a diet. ROS: The rest of the ROS is negative except as mentioned in the HPI section. PHYSICAL EXAM: Visit Vitals BP 130/88 Pulse 77 Temp 36.8 ??C (98.2 ??F) Resp 18 Ht 1.702 m (67 ) Wt 73.9 kg (163 lb) SpO2 95% BMI 25.53 kg/m?? OB Status Postmenopausal Smoking Status Never BSA 1.85 m?? APPEARANCE: No distress. Non-toxic appearing. HEART: RRR with normal S1 and S2, no murmurs appreciated LUNG: CTA on anterior exam. Not on supplemental O2. ABDOMEN: Soft, nontender, bowel sounds positive. RECTAL: Exam deferred EXTREMITIES: No edema. NEURO: AOx3. No focal weaknesses. SKIN: No jaundice. LABS: Lab Results Component Value Date WBC 6.9 09/24/2024 HGB 7.3 (L) 09/24/2024 HCT 22.1 (L) 09/24/2024 MCV 93.2 09/24/2024 PLT 158 09/24/2024 Lab Results Component Value Date ALT 16 09/22/2024 AST 16 09/22/2024 ALKPHOS 58 09/22/2024 BILITOT 1.1 09/22/2024 Lab Results Component Value Date NA 143 09/24/2024 K 4.0 09/24/2024 CL 112 (H) 09/24/2024 CO2 29 09/24/2024 GLUCOSE 110 (H) 09/24/2024 BUN 19 09/24/2024 CREATININE 0.71 09/24/2024 CALCIUM 8.5 09/24/2024 PROT 5.6 (L) 09/22/2024 ALBUMIN 3.3 09/22/2024 BILITOT 1.1 09/22/2024 AST 16 09/22/2024 ALT 16 09/22/2024 ALKPHOS 58 09/22/2024 EGFR 83 09/24/2024 No results found for: LIPASE IMAGING: Pertinent new radiology results/studies: COLONOSCOPY Anesthesia - MAC; [facility] ENDOSCOPY Narrative: [facility] GI Patient Name: Kristen Waite Procedure Date: [...] reviewing the risks and benefits, the patient was deemed in satisfactory condition to undergo the procedure. After I obtained informed consent, the scope was passed under direct vision. Throughout the procedure, the patient's blood pressure, pulse, and oxygen saturations were monitored continuously.The Olympus Pediatric Colonoscope was introduced through the anus and advanced to the terminal ileum, with identification of the appendiceal orifice and IC valve. The colonoscopy was performed without difficulty. The patient tolerated the procedure well. The quality of the bowel preparation was adequate. Findings: The terminal ileum contained red blood. The remainder of the exam in the terminal ileum was normal. Scattered small and large-mouthed diverticula were found in the sigmoid colon. Red blood was found in the entire colon. Non-bleeding internal hemorrhoids were found during retroflexion. The hemorrhoids were small. The exam was otherwise without abnormality on direct and retroflexion views. Procedure Code(s): --- Professional --- 72772, Colonoscopy, flexible; diagnostic, including collection of specimen(s) by brushing or washing, when performed (separate procedure) Diagnosis Code(s): --- Professional --- K92.2, Gastrointestinal hemorrhage, unspecified D50.9, Iron deficiency anemia, unspecified CPT copyright 2020 [employer]. All rights reserved. The codes documented in this report are preliminary and upon computer language coder review may be revised to meet current compliance requirements. Hill Prado MD 09/23/2024 11:24:30 AM This report has been signed electronically.Hill Prado MD Number of Addenda: 0 Note Initiated On: 09/23/2024 10:46 AM Scope In: Scope Out: Endoscopy Department at [facility] - [address] [place] [id number] Impression: - Blood in the terminal ileum. - Diverticulosis in the sigmoid colon. - Blood in the entire examined colon. - Non-bleeding internal hemorrhoids. - The examination was otherwise normal on direct and retroflexion views. - No specimens collected. Recommendation: - Return patient to hospital [facility] for ongoing care. - NPO. - Continue present medications. - Perform CT scan (computed tomography) of the abdomen with contrast if symptoms persist. EGD Anesthesia - MAC; [facility] ENDOSCOPY Narrative: [facility] GI Patient Name: Kristen Waite Procedure Date: [...] reviewing the risks and benefits, the patient was deemed in satisfactory condition to undergo the procedure. After obtaining informed consent, the endoscope was passed under direct vision. Throughout the procedure, the patient's blood pressure, pulse, and oxygen saturations were monitored continuously.The Endoscope was introduced through the mouth, and advanced to the third part of duodenum. The upper GI endoscopy was accomplished without difficulty. The patient tolerated the procedure well. Findings: The Z-line was regular and was found 40 cm from the incisors. The esophagus was normal. The stomach was normal. The examined duodenum was normal. Procedure Code(s): --- Professional --- 38865, Esophagogastroduodenoscopy, flexible, transoral; diagnostic, including collection of specimen(s) by brushing or washing, when performed (separate procedure) Diagnosis Code(s): --- Professional --- K92.2, Gastrointestinal hemorrhage, unspecified CPT copyright 2020 [employer]. All rights reserved. The codes documented in this report are preliminary and upon computer language coder review may be revised to meet current compliance requirements. Hill Prado MD 09/23/2024 11:20:53 AM This report has been signed electronically.Hill Prado MD Number of Addenda: 0 Note Initiated On: 09/23/2024 10:46 AM Scope In: Scope Out: Endoscopy Department at [facility] - [address] [place] [phone] Impression: - Z-line regular, 40 cm from the incisors. - Normal esophagus. - Normal stomach. - Normal examined duodenum. - No specimens collected. Recommendation: - Perform a colonoscopy today. IMPRESSION: 1. Gastrointestinal hemorrhage, unspecified gastrointestinal hemorrhage type 2. Gastrointestinal hemorrhage, unspecified ASSESSMENT AND PLAN: Principal Problem: Gastrointestinal hemorrhage, unspecified gastrointestinal hemorrhage type 84-year-old female presenting with GI bleeding who is status post colonoscopy and gastroscopy yesterday. I did spend a significant time to time again reviewing those endoscopic events with the patient including the findings and its potential meetings. I did express to her that I believe her symptoms are secondary to a diverticular bleed, likely worsened by her anticoagulation which has now been reversed. Coinciding with a reversal of her anticoagulation has been the controlling of her GI bleeding. Review of vital signs and hemoglobin currently stable at this time. 1. Advance diet as tolerated. 2. Follow hemoglobin hematocrit transfusing as deemed appropriate. 3. Continue to avoid the use of Coumadin for long as clinically possible. 4. Will sign off and be available. Please feel free to contact me with any questions or concerns. Orders Placed This Encounter Procedures Critical Care CBC and differential Comprehensive metabolic panel Type and screen Protime-INR CBC auto differential CBC and differential CBC auto differential Complete blood count Comprehensive metabolic panel Prothrombin time with INR Hemoglobin and hematocrit CBC and differential CBC auto differential Basic metabolic panel CBC and differential Prothrombin time with INR CBC auto differential Hemoglobin and hematocrit CBC and differential Basic metabolic panel CBC auto differential CBC and differential CBC auto differential Adult diet [facility]; Modified Consistency Options for Liquids and Solids; IDDSI Level 6 Soft & Bite Sized Notify Physician: Blood Administration Parameters Instructions for Transfusion Reaction Management ACTIVITY Strict Bedrest Vital Signs (specify frequency) Place sequential compression device Notify Physician: Blood Administration Parameters Instructions for Transfusion Reaction Management Notify Physician: Blood Administration Parameters Instructions for Transfusion Reaction Management Notify Physician: Blood Administration Parameters Instructions for Transfusion Reaction Management Maintain IV access Full code - Default Inpatient consult to Gastroenterology ECG 12 lead PRN Prepare RBC: 2 Units Prepare RBC: 1 Units Prepare RBC: 1 Units Prepare Plasma: 2 Units Insert peripheral IV Saline lock IV Admit to Inpatient ED to floor bed request Fall precautions Aspiration precautions Transfuse RBC: 2 Units Transfuse RBC: 1 Units Transfuse RBC: 1 Units Transfuse Plasma: [address] Angio Abdomen Pelvis wo and/or w Contrast COLONOSCOPY Anesthesia - MAC; [facility] ENDOSCOPY EGD Anesthesia - MAC; [facility] ENDOSCOPY NOTIFY PROVIDER - INDICATE REASON [id number] ACTIVITY VITAL SIGNS SEQUENTIAL COMPRESSION DEVICE NOTIFY PROVIDER - INDICATE REASON [id number] NOTIFY PROVIDER - INDICATE REASON [id number] NOTIFY PROVIDER - INDICATE REASON [id number] MAINTAIN IV ACCESS CT ANGIO ABDOMEN PELVIS WO AND/OR W CONTRAST IP CONSULT TO GASTROENTEROLOGY ED TO FLOOR BED REQUEST ADMIT TO INPATIENT FULL CODE DEFAULT FALL PRECAUTIONS ASPIRATION PRECAUTIONS COLONOSCOPY EGD INSERT PERIPHERAL IV SALINE LOCK IV ADULT DIET . Signatures Board Certified, Gastroenterology and Internal Medicine Gastroenterology and Hepatology Practice [facility] W [phone] [place] [address] [email or web address] * Betsy Iniguez RN - 09/24/2024 2:18 AM EST Goals: Identify possible barriers to meeting goals/advancing plan of care: Stability of the patient: Moderately Stable - Low risk of patient condition declining or worsening End of Shift Summary: Patient had an episode of bloody loose stool. * Judy Batista RN - 09/23/2024 1:54 PM EST 09/23/24 1352 Initial Transition Plan Initial Transition Plan Home Health Care Discharge Planning Living Arrangements Spouse/significant other;Children Type of Residence Private residence Assistive Devices Cane Support Systems Spouse/significant other;Children Medication Coverage Has Med Coverage Under Insurance Plan Yes Medication Affordability No concerns related to payment for meds Informed Choice Informed Choice Given? Yes SANTY: 09/24-09/25 Barrier: s/p EGD, requiring blood and plasma transfusions Plan: home with [facility] if needed. Declines SNF. ICC met with both pt and her son Michael at bedside. * Tolu Taylor - 09/23/2024 12:44 PM EST SPIRITUAL CARE Date/Time:09/23/24 at 12:44 PM EST Type of Visit: Initial Visit and Cattle Shipper Rounding Reason for Visit: Spiritual/Emotional Support and Spiritual Assessment Time Spent: 20 Minutes Location: [address] [place] [address] Sacramental Encounters: Sacrament of Sick-Anointing: Anointed Spiritual Distress Assessment: Spiritual Distress Assessment at beginning of visit Meaning - Overall Life Balance: No evidence of unmet spiritual need Transcendence: No evidence of unmet spiritual need Values - Acknowledgement: No evidence of unmet spiritual need Values - Control: No evidence of unmet spiritual need Psycho-Social Identity: No evidence of unmet spiritual need SDAT Beginning of Visit Average Score: 0 Spiritual Distress Assessment at end of visit Meaning - Overall Life Balance: No evidence of unmet spiritual need Transcendence: No evidence of unmet spiritual need Values - Acknowledgement: No evidence of unmet spiritual need Values - Control: No evidence of unmet spiritual need Psycho-Social Identity: No evidence of unmet spiritual need SDAT End of Visit Average Score: 0 Spiritual Assessment/Distress Spiritual Care Assessment: Assessment: Kristen, was awake, alert and resting in bed at the time of visit. South African speaking. Her son, Michael, present in the room. Shared mom's health condition, diagnosis, care plan and awaitingscheduled procedure. Hopeful with procedure and good outcome would return to normal daily life routine. No concern raised except desire for recovery and good health. Trinidad jehovah's witness is Rastafari. Voiced desire to receive anointing of the sick. Prayed for recovery and good health. Thankful for the visit. Intervention: NE Spiritual Care Interventions : provided support, explored hope, listened empathically, and provided prayer Outcomes: expressed gratitude and expressed peace Plan of Care: Visit as needed *Reference: Spiritual Distress Assessment Tool: The SDAT is a clinical tool used by chaplains to identify unmet spiritual and emotional needs that can impact Goals of Care in the following categories: Spiritual Distress Assessment Legend Spiritual Needs Related Questions Meaning Are you having difficulties coping with what is happening to your now? Does your hospitalization have any repercussions on the way you live usually? Transcendence Do you have a particular jehovah's witness, trinidad, or spirituality? Is your jehovah's witness/spirituality/trinidad challenged by what is happening to you now? Values Do you think that the health professionals caring for you know you well enough? Do you feel that you are participating in the decisions made about your care? Psycho-Social Identity Do you have any worries or difficulties regarding your family or other persons close to you? Do you feel lonely? Do you have links to your trinidad community? SCALE 0= no evidence of unmet spiritual needs 1= some evidence of unmet spiritual needs 2= substantial evidence of unmet spiritual needs 3= evidence of severe unmet spiritual needs * Laura Morales RN - 09/23/2024 11:51 AM EST Confirmed with Luly Fajardo that second unit of plasma that was on hold for endo procedure does not need to be given at this time. Blood bank was notified. * Ingris Zamudio RN - 09/23/2024 11:13 AM EST TI viewed * Ingris Zamudio RN - 09/23/2024 10:59 AM EST EGD END AT 1100 COLON START 1102 * Laura Morales RN - 09/23/2024 10:00 AM EST Patient is refusing translator/interpreter services at this time and is requesting that her sons (who are listed in chart) provide interpretation. Proper paperwork was filled out and will be placed in the chart. * SAGAR Flores - 09/23/2024 8:22 AM EST Subjective Patient was seen and examined this morning at bedside. South African translator/interpreter Carroll ID number [id number] assisted with translation Per RN, patient had 8 red loose stools last night She denies any abdominal pain, nausea or vomiting today No chest pain, shortness of breath Limited history as patient repetitively states she is waiting for her son to come and speak for her. Objective Physical Exam General Exam: Age-appropriate female, awake, calm, somewhat cooperative, on the edge of the hospital bed in no acute distress. Skin Exam: Warm, dry and intact without diaphoresis. No rashes appreciated HEENT exam: Head appears atraumatic. No scleral icterus. Respiratory Exam: Clear to auscultation bilaterally. Cardiovascular Exam: Regular rate and rhythm. + Murmur Gastrointestinal Exam: Abdomen is soft, nontender, and nondistended. BS appreciated. Musculoskeletal Exam: No lower extremity edema is appreciated. Neurological Exam: Alert and oriented to person place and situation. Last Recorded Vitals: Blood pressure 127/73, pulse 109, temperature 36.3 ??C (97.4 ??F), temperature source Temporal, resp. rate 16, height 1.702 m (67 ), weight 73.9 kg (163 lb), SpO2 98%. Medications: atorvastatin, 10 mg, oral, Nightly levothyroxine, 175 mcg, oral, q AM AC metoprolol succinate, 50 mg, oral, Daily pantoprazole, 40 mg, intravenous, q12h potassium chloride oral extended release, 40 mEq, oral, Once PRN medications: acetaminophen, ondansetron, sodium chloride, sodium chloride, sodium chloride Lab Results Component Value Date WBC 6.8 09/23/2024 HGB 7.4 (L) 09/23/2024 HCT 22.2 (L) 09/23/2024 MCV 91.7 09/23/2024 PLT 157 09/23/2024 Lab Results Component Value Date GLUCOSE 109 (H) 09/23/2024 CALCIUM 8.2 (L) 09/23/2024 NA 144 09/23/2024 K 3.4 (L) 09/23/2024 CO2 30 09/23/2024 CL 109 09/23/2024 BUN 20 09/23/2024 CREATININE 0.64 09/23/2024 CT Angio Abdomen Pelvis wo and/or w Contrast Final Result 1. No evidence of active gastrointestinal bleeding. 2. There is colonic diverticulosis without diverticulitis. This document has been electronically signed by: Alejandra Julian MD on 09/21/2024 17:44:33 Assessment/Plan This is an 84-year-old female with a past medical history of atrial fibrillation on Coumadin, history of right lower extremity DVT, hypertension, hyperlipidemia, PVD, diabetes, hypothyroidism, depression, kyphoscoliosis who presented to the ED due to maroon-colored stools. Upon arrival to the ED she was tachycardic but otherwise hemodynamically stable. Lab workup showed anemia with initial hemoglobin 6.0 and mild leukocytosis and hypokalemia. INR noted to be 2.9. She underwent CT angio abdomen and pelvis showing no active GI bleeding and she was subsequently admitted to the medical service for further management. GI bleed Acute blood loss anemia H&H on arrival 6.0/18.0. She was transfused a total of [address] angio abdomen and pelvis showed no active GI hemorrhage with colonic diverticulosis without diverticulitis DDX PUD, AVM, diverticular bleed, polyp, malignancy Repeat H&H 7.4/22.2 on 09/23. Had 8 red loose stools with prep overnight. INR 1.9 --Transfuse 1 unit PRBC --FFP x2 units --N.p.o. for colonoscopy and EGD today --Repeat H&H 6 PM --Transfuse for hemoglobin less than 7 --PPI IV twice daily --CBC in AM Hypokalemia Potassium on arrival 3.2. Replaced. Repeat potassium 3.4 on 09/23 --KCl 40 mEq p.o. x 1 --Repeat BMP in a.m. Leukocytosis-resolved WBC on arrival 11.3, resolved by later that evening to 5.7, stable 7.1 in the morning on 09/22 Suspect reactive No signs or symptoms of infection Atrial fibrillation Secondary hypercoagulable state INR on arrival 2.9. She was administered 5 mg p.o. vitamin K Repeat INR 1.9 on 09/23 --Continue metoprolol succinate 50 mg p.o. daily with holding parameters --Coumadin on hold due to GI bleed Hypertension SBP 120s to 160s 09/22 --Continue metoprolol succinate 50 mg daily with holding parameters --Hold HCTZ for now Hyperlipidemia -- Continue statin Hypothyroidism -- Continue levothyroxine CODE STATUS: Full code DVT prophylaxis: SCDs. Hold chemical DVT prophylaxis due to concern for GI bleed HCP is patient's son, Yocasta [phone]. Updated at bedside in preop endoscopy in the morning on 09/23 Total time spent performing chart review, assessing the patient, documenting, discussing with attending MD/bedside RN/ICC, updating family, arranging care and performing a high level of medical decision making approximately [address] Smalls. Cosigned by Tiffany Smalls MD at 09/23/2024 5:19 PM EST Associated attestation - Tiffany Smalls MD - 09/23/2024 5:19 PM EST This is a split/shared visit with SAGAR Flores. Patient seen and examined at the bedside, I independently interviewed the patient, performed physical examination, reviewed pertinent studies and performed clinical decision making. Care reviewed with SAGAR O[place]o, plan as below. I personally explained to the patient importance of getting blood and FFP transfusions with son present at the bedside. She was in agreement and accepted all the care. Tiffany Smalls MD 09/23/24 5:18 PM EST * Paty Carvajal RN - 09/23/2024 5:21 AM EST Goals: Identify possible barriers to meeting goals/advancing plan of care: Stability of the patient: Moderately Unstable - Medium risk of patient condition declining or worsening End of Shift Summary: Pt had multiple loose bloody stools. No complain of dizziness or pain. Will continue to monitor. * Hill Prado MD - 09/22/2024 11:35 AM EST GI PROGRESS NOTE Acute overnight events: Per nursing, patient with dark liquid stool this morning. No abdominal complaints otherwise. No upper GI symptoms. Coumadin reportedly held yesterday. ROS: The rest of the ROS is negative except as mentioned in the HPI section. PHYSICAL EXAM: Visit Vitals BP (!) 149/66 (BP Location: Right arm, Patient Position: Lying) Pulse 89 Temp 36.6 ??C (97.9 ??F) (Temporal) Resp 16 Ht 1.702 m (67 ) Wt 73.9 kg (163 lb) SpO2 99% BMI 25.53 kg/m?? Smoking Status Never BSA 1.85 m?? APPEARANCE: No distress. Non-toxic appearing. HEART: RRR with normal S1 and S2, no murmurs appreciated LUNG: CTA on anterior exam. Not on supplemental O2. ABDOMEN: RECTAL: Exam deferred EXTREMITIES: No edema. NEURO: AOx3. No focal weaknesses. SKIN: No jaundice. LABS: Lab Results Component Value Date WBC 7.1 09/22/2024 HGB 8.8 (L) 09/22/2024 HCT 26.4 (L) 09/22/2024 MCV 89.2 09/22/2024 PLT 169 09/22/2024 Lab Results Component Value Date ALT 16 09/22/2024 AST 16 09/22/2024 ALKPHOS 58 09/22/2024 BILITOT 1.1 09/22/2024 Lab Results Component Value Date NA 143 09/22/2024 K 3.7 09/22/2024 CL 111 (H) 09/22/2024 CO2 26 09/22/2024 GLUCOSE 99 09/22/2024 BUN 21 09/22/2024 CREATININE 0.69 09/22/2024 CALCIUM 8.9 09/22/2024 PROT 5.6 (L) 09/22/2024 ALBUMIN 3.3 09/22/2024 BILITOT 1.1 09/22/2024 AST 16 09/22/2024 ALT 16 09/22/2024 ALKPHOS 58 09/22/2024 EGFR 85 09/22/2024 No results found for: LIPASE IMAGING: Pertinent new radiology results/studies: CT Angio Abdomen Pelvis wo and/or w Contrast Narrative: INDICATION: GI bleed CT angiography abdomen and [...] contents. Normal appendix. The bones are intact. Impression: 1. No evidence of active gastrointestinal bleeding. 2. There is colonic diverticulosis without diverticulitis. This document has been electronically signed by: Alejandra Julian MD on 09/21/2024 17:44:33 IMPRESSION: 1. Gastrointestinal hemorrhage, unspecified gastrointestinal hemorrhage type 2. Gastrointestinal hemorrhage, unspecified ASSESSMENT AND PLAN: Principal Problem: Gastrointestinal hemorrhage, unspecified gastrointestinal hemorrhage type 84-year-old female presenting with GI bleeding of unclear etiology. CT angiography reveals no active bleeding but does confirm the presence of diverticulosis without diverticulitis. I did review withthe patient the differential diagnosis for bleeding including the known diverticuli, polyp, AVM, cancer as well as the possibility of an upper GI source such as a peptic ulcer disease. We spent some time reviewing the pros, cons, risks and benefits of colonoscopy and gastroscopy. This included the risk of bleeding, infection, perforation, missed diagnosis, failed procedure, surgery, etc. At this time the patient is willing to go forward with this. She understands that she will need to take a prep. She understands that we will need to discontinue her Coumadin. 1. Plan for colonoscopy and gastroscopy on 09/23/2024. 2. Spoke with medical team. Expressed concerns over continued elevated INR. Explained he needs to be 1.5 or less to allow for potentially safer endoscopic evaluation. They stated they will address. 3. Plan for GoLytely prep this afternoon. Again asked medical team to help with this and they will write for the medication. 4. Further recommendations based on endoscopic evaluation. 5. Should patient have what appears to be another active bleed, would consider repeat CTA and/or nuclear bleeding scan. 6. Will follow with you. Orders Placed This Encounter Procedures Critical Care CBC and differential Comprehensive metabolic panel Type and screen Protime-INR CBC auto differential CBC and differential CBC auto differential Complete blood count Comprehensive metabolic panel Prothrombin time with INR Adult diet [facility]; [facility], [facility] Consistency Options for Liquids and Solids; Regular; Clear Liquid; No Red Liquids Notify Physician: Blood Administration Parameters Instructions for Transfusion Reaction Management ACTIVITY Strict Bedrest Vital Signs (specify frequency) Place sequential compression device Notify Physician: Blood Administration Parameters Instructions for Transfusion Reaction Management Full code - Default Inpatient consult to Gastroenterology ECG 12 lead PRN Prepare RBC: 2 Units Prepare RBC: 1 Units Admit to Inpatient ED to floor bed request Fall precautions Aspiration precautions Transfuse RBC: 2 Units Transfuse RBC: [address] Angio Abdomen Pelvis wo and/or w Contrast COLONOSCOPY Anesthesia - MAC; [facility] ENDOSCOPY EGD Anesthesia - MAC; [facility] ENDOSCOPY NOTIFY PROVIDER - INDICATE REASON [id number] ACTIVITY VITAL SIGNS SEQUENTIAL COMPRESSION DEVICE NOTIFY PROVIDER - INDICATE REASON [id number] CT ANGIO ABDOMEN PELVIS WO AND/OR W CONTRAST IP CONSULT TO GASTROENTEROLOGY ED TO FLOOR BED REQUEST ADMIT TO INPATIENT FULL CODE DEFAULT ADULT DIET FALL PRECAUTIONS ASPIRATION PRECAUTIONS COLONOSCOPY EGD . Signatures Board Certified, Gastroenterology and Internal Medicine Gastroenterology and Hepatology Practice [facility] W [phone] [place] [id number] [email or web address] * SAGAR Flores - 09/22/2024 10:52 AM EST Subjective Patient was seen and examined this morning at bedside. Reports she had a plum colored loose stool this morning Denies any abdominal pain, nausea or vomiting Denies chest pain, shortness of breath or dizziness Skylar South African translator/interpreter [id number] assisted with translation Objective Physical Exam General Exam: Age-appropriate female, awake, calm, cooperative, lying in the hospital bed in no acute distress. Skin Exam: Warm, dry and intact without diaphoresis. No rashes appreciated HEENT exam: Head appears atraumatic. No scleral icterus. Respiratory Exam: Diminished breath sounds but otherwise clear to auscultation bilaterally. Cardiovascular Exam: Regular rate and rhythm. + Murmur Gastrointestinal Exam: Abdomen is soft, nontender, and nondistended. BS appreciated. Musculoskeletal Exam: No lower extremity edema is appreciated. Neurological Exam: Alert and oriented to person place and situation. Last Recorded Vitals: Blood pressure (!) 160/71, pulse 80, temperature 36.9 ??C (98.5 ??F), temperature source Temporal, resp. rate 14, height 1.702 m (67 ), weight 73.9 kg (163 lb), SpO2 100%. Medications: atorvastatin, 10 mg, oral, Nightly levothyroxine, 175 mcg, oral, q AM AC metoprolol succinate, 50 mg, oral, Daily pantoprazole, 40 mg, intravenous, q12h PRN medications: acetaminophen, ondansetron, sodium chloride Lab Results Component Value Date WBC 7.1 09/22/2024 HGB 8.8 (L) 09/22/2024 HCT 26.4 (L) 09/22/2024 MCV 89.2 09/22/2024 PLT 169 09/22/2024 Lab Results Component Value Date GLUCOSE 99 09/22/2024 CALCIUM 8.9 09/22/2024 NA 143 09/22/2024 K 3.7 09/22/2024 CO2 26 09/22/2024 CL 111 (H) 09/22/2024 BUN 21 09/22/2024 CREATININE 0.69 09/22/2024 CT Angio Abdomen Pelvis wo and/or w Contrast Final Result 1. No evidence of active gastrointestinal bleeding. 2. There is colonic diverticulosis without diverticulitis. This document has been electronically signed by: Alejandra Julian MD on 09/21/2024 17:44:33 Assessment/Plan This is an 84-year-old female with a past medical history of atrial fibrillation on Coumadin, history of right lower extremity DVT, hypertension, hyperlipidemia, PVD, diabetes, hypothyroidism, depression, kyphoscoliosis who presented to the ED due to maroon-colored stools. Upon arrival to the ED she was tachycardic but otherwise hemodynamically stable. Lab workup showed anemia with initial hemoglobin 6.0 and mild leukocytosis and hypokalemia. INR noted to be 2.9. She underwent CT angio abdomen and pelvis showing no active GI bleeding and she was subsequently admitted to the medical service for further management. GI bleed Acute blood loss anemia H&H on arrival 6.0/18.0. She was transfused a total of 3 unit PRBC. Repeat H&H 8.8/26.4 on 09/22 CT angio abdomen and pelvis showed no active GI hemorrhage with colonic diverticulosis without diverticulitis DDX PUD, AVM, diverticular bleed, polyp, malignancy --Continue clear liquid diet. N.p.o. after midnight with plan for colonoscopy and EGD 09/23 --Hold Coumadin. Give 5 mg p.o. vitamin K. Recheck INR in AM --Repeat H&H 6 PM --Transfuse for hemoglobin less than 7 --PPI IV twice daily --GoLytely 4000 mL p.o. x 1 --CBC in AM Hypokalemia Potassium on arrival 3.2. Replaced. Repeat potassium stable 3.7 on 09/22 --Repeat BMP in a.m. Leukocytosis WBC on arrival 11.3, resolved by later that evening to 5.7, stable 7 point 1 in the morning on 09/22 Suspect reactive No signs or symptoms of infection Atrial fibrillation Secondary hypercoagulable state INR down to 2.6 from 2.9 on 09/22 --Continue metoprolol succinate 50 mg p.o. daily with holding parameters --Coumadin due to GI bleed -- Vitamin K as above. Repeat INR in a.m. Hypertension SBP 120s to 160s 09/22 --Continue metoprolol succinate 50 mg daily with holding parameters --Hold HCTZ for now Hyperlipidemia -- Continue statin Hypothyroidism -- Continue levothyroxine CODE STATUS: Full code DVT prophylaxis: SCDs. Hold chemical DVT prophylaxis due to concern for GI bleed HCP is patient's son, Yocasta [phone]. Family was updated by attending MD today. Total time spent performing chart review, assessing the patient, documenting, discussing with attending MD/bedside RN/ICC, arranging care and performing a high level of medical decision making approximately [address] Smalls. Cosigned by Tiffany Smalls MD at 09/23/2024 5:12 PM EST * Tari Peralta RN - 09/22/2024 9:06 AM EST Goals: Identify possible barriers to meeting goals/advancing plan of care: monitoring lab values, GI consult. Stability of the patient: Moderately Stable - Low risk of patient condition declining or worsening End of Shift Summary: will continue to monitor. * SAGAR Paige - 09/22/2024 7:32 AM EST CC notified pt had at least 2 bloody bowel movements described as dark red. Repeat H&H was 7.2/21.2. Will transfuse 1 unit PRBC. Pt had 2 units transfused prior. - Retimed morning labs to be obtained after transfusion * Rema Sherman RN - 09/22/2024 12:23 AM EST Problem: Fluid Volume: Bleeding Risk Goal: Will show no signs and symptoms of excessive bleeding Outcome: Progressing Goals: Identify possible barriers to meeting goals/advancing plan of care: monitor h/h Stability of the patient: Moderately Stable - Low risk of patient condition declining or worsening End of Shift Summary: vss tolerated blood tranfusion without difficulty O Block RN - 09/21/2024 5:10 PM EST PT FINISHED 1ST UNIT OF BLOOD, SEE VITALS, PT IS BEING TRANSPORTED TO CT THEN WILL GO UPSTAIRS TO RECEIVE 2ND UNIT OF BLOOD. PT VOICES NO QUESTIONS/CONCERNS AT THIS TIME. PLAN OF CARE ONGOING O Block RN - 09/21/2024 3:09 PM EST Finish 1st unit of blood, then call ct, to get ct before 2nd unit of blood. aware and approved of this plan with ct at bedside now d/t concern for contrast reaction vs blood reaction. Currently pt resting in bed with rr even and unlabored, alert and oriented, pt is talking to her son at bedside and remains hooked up to cardiac and spo2 monitoring. O Block RN - 09/21/2024 2:36 PM EST ED RN HANDOFF (All Rodriguez Below Must Be Completed) Reason/Diagnosis for Admission: Gi hemorrhage Type of Admission: [x] Medsurg, [] Telemetry Already in a Hospital Bed: [] Yes / [x] No Room Considerations/Precautions (ex: fever, diarrhea, or any infectious concerns): [] Yes / [x] No Shampoo Person: [] Yes / [x] No If YES, Cardiac Rhythm: [] NSR, [] SB, [] ST, [x] A-FIB, [] A-Flutter, [] Pacemaker, [] 1st Degree HB, [] 2nd Degree HB, [] 3rd Degree HB Reason for Shampoo Person: VS: Visit Vitals BP (!) 144/56 (BP Location: Right arm, Patient Position: Lying) Pulse 92 Comment: AFIB Temp 37 ??C (98.6 ??F) (Oral) Resp 20 Ht 1.702 m (67 ) Wt 73.9 kg (163 lb) SpO2 100% BMI 25.53 kg/m?? Smoking Status Never BSA 1.85 m?? Current Mental Status: A/O x [x]4, []3, []2, []1 Current Ambulation Status: independent IV Access: [x] Yes / [] No Field IV present: [] Yes / [x] No Hx of Violence: [] Yes / [x] No / [] Unknown Fall Risk:[] Yes / [x] No Yellow Bracelet Applied [] Yes / [] No Yellow Socks Applied [] Yes / [] No Patient Belongings inventoried and BL completed: [x] Yes / [] No Patient belongings stored in the security closet: [] Yes (If Yes please supply Security bag #): [] No Patient Medications stored in Pharmacy: [] Yes (If Yes please supply Medication Security bag #): [] No ED Summary of Care: First unit of blood running now, independent, new zealander speaking Stopped taking coumadin Awaiting ct Submitted by and Phone Extension: [phone] * Cayla Block RN - 09/21/2024 2:11 PM EST Gi md at bedside * Cayla Block RN - 09/21/2024 2:10 PM EST Consent signed this rn as witness * Pierre Guadarrama RN - 09/21/2024 1:51 PM EST Yocasta son can be reached at [phone] Pierre Guadarrama RN 09/21/24 [id number] * Cayla Block RN - 09/21/2024 1:14 PM EST this rn assumed care of patient at 1250 , from waiting room. This rn used new zealander translator/interpreter solo and oriented patient and her son to the room, call falk and updated the patient on the plan of care. Patient correctly redemonstrates how to use the call falk and voices no other concerns at this t aida .Call falk within reach, stretcher locked and in lowest position with side rails up. Patient changed over into hospital attire with Cardiac and SPO2 monitoring in place. Two piv placed, plan of care ongoing * Alvaro Jacome MD - 09/21/2024 12:36 PM EST 84-year-old female patient who was sent by primary care physician for dark stool since Saturday. Vital signs reviewed. Patient will require further evaluation in the emergency department. * Man Blake RN - 09/21/2024 11:36 AM EST [Patient sent from pcp for dark stool since Saturday. * Pierre Pompa MD - 09/21/2024 11:34 AM ESTAssociated Order(s): Critical Care Emergency Medicine Note Patient Name: Kristen Waite Initial Evaluation: 09/21/2024 : 1940 Patient's PCP: Rylan Ortiz DO Emergency Physician: Pierre Pompa MD History of Present Illness Chief Complaint: Chief Complaint Patient presents with Black or Bloody Stool HPI: 84-year-old female on Coumadin for atrial fibrillation presents with dark maroon stools since August. She was sent in by her doctor for further evaluation today. She also feels weak and dizzy lightheaded. She has been having some constipation prior to and states she was also taking Tylenol and prunes but denies any NSAID use. She denies any previous GI bleeds. She denies any history of upper endoscopy or colonoscopy. She denies any fevers or chills. She is herefrom home with her son. She denies any current chest pain or shortness of breath. ROS: I have performed a ROS with the pertinent positives and negatives documented in the history ofpresent illness. Previous History Past Medical History: Diagnosis Date Depression DX:Depression Diabetes mellitus, type II (CMS/HCC) DX:Diabetes mellitus, type II (HCC) Essential hypertension DX:Essential hypertension Family history of cardiovascular disease DX:Family history of cardiovascular disease Hyperlipidemia DX:Hyperlipidemia OA (osteoarthritis) of knee DX:OA (osteoarthritis) of knee History reviewed. No pertinent surgical history. Social History Tobacco Use Smoking status: Never Smokeless tobacco: Never Substance Use Topics Alcohol use: Not Currently Drug use: Never Family History Problem Relation Name Age of Onset Coronary artery disease Father Coronary artery disease Mother has No Known Allergies. No current facility-administered medications on file prior to encounter. No current outpatient medications on file prior to encounter. Physical Exam ED Triage Vitals Temp Heart Rate Resp BP 09/21/24 1137 09/21/24 1137 09/21/24 1137 09/21/24 1137 36.4 ??C (97.5 ??F) 110 16 137/61 SpO2 Temp Source Heart Rate Source Patient Position 09/21/24 1137 09/21/24 1300 09/21/24 1300 -- 100 % Oral Monitor BP Location FiO2 (%) -- -- Constitutional General Exam: awake, cooperative, No apparent distress Skin Skin Exam: Pale, warm, dry, No rash Eyes Eye Exam: PERRLA, EOMI, anicteric Ear, Nose, Throat ENT Exam: No pharyngeal erythema/ tonsillar exudate Neck Neck Exam: soft, supple, No nuchal rigidity Respiratory Respiratory Exam: clear bilaterally without wheezing, rales, rhonchi, No respiratory distress Cardiovascular Cardiovascular Exam: regular rate, regular rhythm, No murmur, No rub, No gallop Gastrointestinal soft, non-tender, No rebound/guarding, no rigidity, no masses Bowel Sounds positive all quadrants Genitourinary Genitourinary Exam: no CVAT, rectal shows POSITIVE maroon stool, guaiac positive, control positive Musculoskeletal Musculoskeletal Exam: no edema/Homans/cords Neurological Neurological Exam: alert and oriented X 3, No focal deficit Lymphatic Lymphatic Exam: No lympadenopathy Psychiatric Psychiatric Exam: Mood and affect appropriate Results Labs Reviewed COMPREHENSIVE METABOLIC PANEL - Abnormal Result Value Sodium 142 Potassium 3.2 (*) Chloride 108 CO2 26 Anion Gap 8 Glucose 132 (*) BUN 34 (*) Creatinine 0.94 eGFR 59 (*) BUN/Creatinine Ratio 36.2 Calcium 8.9 AST (SGOT) 15 ALT (SGPT) 18 Alkaline Phosphatase 56 Total Protein 5.7 (*) Albumin 3.3 Total Bilirubin 0.5 PROTHROMBIN TIME WITH INR - Abnormal Protime 35.4 (*) INR 2.9 CBC WITH AUTO DIFFERENTIAL - Abnormal WBC 11.3 (*) RBC 1.90 (*) Hemoglobin 6.0 (*) Hematocrit 18.0 (*) MCV 93.3 MCH 30.9 MCHC 33.1 RDW 16.5 (*) Platelets 215 MPV 9.8 NRBC 0.2 NRBC Absolute 0.02 Neutrophils Relative 85.9 Lymphocytes Relative 6.8 Monocytes Relative 6.4 Eosinophils Relative 0.0 Basophils Relative 0.3 Immature Granulocytes Relative 0.6 Neutrophils Absolute 9.66 (*) Lymphocytes Absolute 0.77 (*) Monocytes Absolute 0.72 Eosinophils Absolute 0.00 Basophils Absolute 0.03 Immature Granulocytes Absolute 0.07 (*) CBC AND DIFFERENTIAL Narrative: The following orders were created for panel order CBC and differential. Procedure Abnormality Status --------- ------ CBC auto differential[[id number]] Abnormal Final result Please view results for these tests on the individual orders. TYPE AND SCREEN ABO Group A Rh Type Negative Antibody Screen Negative PREPARE RBC Abnormal Labs Reviewed COMPREHENSIVE METABOLIC PANEL - Abnormal; Notable for the following components: Result Value Potassium 3.2 (*) Glucose 132 (*) BUN 34 (*) eGFR 59 (*) Total Protein 5.7 (*) All other components within normal limits PROTHROMBIN TIME WITH INR - Abnormal; Notable for the following components: Protime 35.4 (*) All other components within normal limits CBC WITH AUTO DIFFERENTIAL - Abnormal; Notable for the following components: WBC 11.3 (*) RBC 1.90 (*) Hemoglobin 6.0 (*) Hematocrit 18.0 (*) RDW 16.5 (*) Neutrophils Absolute 9.66 (*) Lymphocytes Absolute 0.77 (*) Immature Granulocytes Absolute 0.07 (*) All other components within normal limits CT Angio Abdomen Pelvis wo and/or w Contrast (Results Pending) I have discussed the incidental/abnormal imaging and/or lab abnormalities with the patient and haveinstructed them the need for further evaluation and workup with their primary care doctor. I have provided the patient with a paper copy of the abnormality. The laboratory results, imaging results and other diagnostic exam results were reviewed in the EMR. EKG Interpretation Critical Care Time None ? Medical Decision Making Medications sodium chloride 0.9 % infusion (has no administration in time range) pantoprazole (PROTONIX) injection 80 mg (has no administration in time range) pantoprazole (PROTONIX) injection 40 mg (has no administration in time range) ED Course as of 09/21/24 1402 Mon Sep 21, [address] Chapman who is in the department seeing the patient now. HALOED to Dr. Cisnerosfor hospitalization. [ESTHER] ED Course User Index [ESTHER] Pierre Pompa MD Clinical Impressions as of 09/21/24 140 Gastrointestinal hemorrhage, unspecified gastrointestinal hemorrhage type Patient presents with a GI bleed on Coumadin. Plan is labs including coagulation studies and will consider CTA of the abdomen to consider source. Procedures Critical Care Performed by: Pierre Pompa MD Authorized by: Pierre Pompa MD Critical care provider statement: Critical care time (minutes): 60 Critical care time was exclusive of: Separately billable procedures and treating other patients Critical care was necessary to treat or prevent imminent or life-threatening deterioration of the following conditions: Circulatory failure Critical care was time spent personally by me on the following activities: Development of treatmentplan with patient or surrogate, discussions with consultants, examination of patient, obtaining history from patient or surrogate, ordering and performing treatments and interventions, ordering and re view of laboratory studies, ordering and review of radiographic studies, re- evaluation of patient'scondition and review of old charts I assumed direction of critical care for this patient from another provider in my specialty: no Care discussed with: admitting provider Comments: 2 units of packed red blood cell transfusion ordered. Diagnosis 1. Gastrointestinal hemorrhage, unspecified gastrointestinal hemorrhage type CT Angio Abdomen Pelvis wo and/or w Contrast CT Angio Abdomen Pelvis wo and/or w Contrast Disposition Admit to Inpatient ED Prescriptions None Physician Attestation Pierre Pompa MD 09/21/24 1342 Pierre Pompa MD 09/21/24 1400 Pierre Pompa MD 09/21/24 1402 documented in this encounter H&P Notes * SAGAR Rivera - 09/21/2024 4:15 PM EST Images from the original note were not included. [facility] HISTORY AND PHYSICAL Please contact author [SAGAR Rivera] via [facility]. Patient: Kristen Waite Admission Date/Time: 09/21/2024 12:47 PM : 1940 [84 y.o.] Patient's PCP: Rylan Ortiz DO Attending Provider: Pierre Pompa MD;Nerm* CHIEF COMPLAINT Maroon stools HISTORY OF PRESENT ILLNESS This is an 84-year-old [place] African speaking female with past medical history significant for atrial fibrillation on Coumadin, history of right lower extremity DVT, hypertension, hyperlipidemia, peripheral vascular disease, diabetes mellitus, hypothyroidism, depression, kyphoscoliosis, amongst others, who presents emergency room with complaints of maroon stools. Patient is [place] African speaking only requiring use of electronic translator/interpreter Tyche #[id number], limiting H&P. Patient states that last week she experienced constipation with straining which led to bloody bowel movements starting on 09/16/2024 or , 09/17/2024 last week. She initially held her Coumadin, though restarted 1 day later. Reports she has been experiencing ongoing bloody bowel movements since. Reports associated symptoms of generalized weakness, fatigue, lightheadedness, dizziness and pale skin tone. Reports her appetite has been at baseline. Today she presented for appointment with her primary care provider and was recommended to go to the emergency room for further evaluation and treatment. Of note patient states she had a colonoscopy occurring 4 years ago, though cannot further elaborate. Denies fever, chills, focal weakness, headache, shortness of breath, cough, chest pain, abdominal pain, nausea, vomiting, dysuria. Denies recent travel or sick contacts. Upon H&P patient is afebrile, heart rate 77, respiratory rate 18, blood pressure 145/59, oxygensaturation 100% on room air. Labs performed revealing WBC 11.3 with H&H 6.0/18.0, neutrophils 9.66, BUN 34 with creatinine 0.94, potassium 3.2, INR 2.9. Abdomen/pelvis CT imaging pending at this time. Patient was evaluated by Gastroenterology, and care subsequently transferred to the medical service for further evaluation and treatment. Review of Systems Review of Systems Constitutional: Positive for fatigue. Gastrointestinal: Positive for blood in stool. Neurological: Positive for dizziness, weakness and light-headedness. All other systems reviewed and are negative. MEDICAL HISTORY Past Medical History Past Medical History: Diagnosis Date ??? Atrial fibrillation (CMS/HCC) ??? Depression DX:Depression ??? Diabetes mellitus, type II (CMS/HCC) DX:Diabetes mellitus, type II (HCC) ??? Essential hypertension DX:Essential hypertension ??? Family history of cardiovascular disease DX:Family history of cardiovascular disease ??? Hyperlipidemia DX:Hyperlipidemia ??? Hypothyroid ??? Kyphoscoliosis ??? OA (osteoarthritis) of knee DX:OA (osteoarthritis) of knee Past Surgical History Past Surgical History: Procedure Laterality Date ??? HAND SURGERY ??? HYSTERECTOMY Social History reports that she has never smoked. She has never used smokeless tobacco. She reports that she does not currently use alcohol. She reports that she does not use drugs. Lives with her and son. Independent with ADLs. Denies using assistive device with ambulation. Family History family history includes Coronary artery disease in her father and mother. Allergies has No Known Allergies. Home Medications No current facility-administered medications on file prior to encounter. Current Outpatient Medications on File Prior to Encounter Medication Sig Dispense Refill ??? hydroCHLOROthiazide (HYDRODIURIL) 25 mg tablet Take 1 tablet (25 mg total) by mouth 1 (one) time each day. ??? levothyroxine (SYNTHROID, LEVOTHROID) 175 mcg tablet Take 1 tablet (175 mcg total) by mouth 1 (one) time each day before breakfast. ??? metoprolol succinate (TOPROL-XL) 50 mg 24 hr tablet Take 1 tablet (50 mg total) by mouth 1 (one) time each day. ??? simvastatin (ZOCOR) 10 mg tablet Take 1 tablet (10 mg total) by mouth at bedtime. ??? warfarin (COUMADIN) 5 mg tablet Take 1 tablet (5 mg total) by mouth 1 (one) time each day with dinner. OBJECTIVE Vitals Visit Vitals BP (!) 152/80 (BP Location: Right arm, Patient Position: Lying) Pulse 75 Temp (S) 37 ??C (98.6 ??F) (Oral) Comment: BLOOD TRANSUSION 1/2 COMPLETE Resp 16 Temp (24hrs), Av.8 ??C (98.2 ??F), Min:36.4 ??C (97.5 ??F), Max:37.1 ??C (98.7 ??F) Body mass index is 25.53 kg/m??. No results found for: PTWT , PTHT Physical Examination General Exam: Age appropriate, awake, calm, cooperative, laying supine on exam stretcher, appearingcomfortable and in no acute distress. Skin Exam: Warm, dry, intact, no diaphoresis. No rashes noted. Capillary refill < 3 seconds. Eye Exam: No scleral icterus HEENT exam: Head is normocephalic. Oral mucosa mildly dry. No trismus, drooling, or difficulty handling secretions. Neck Exam: Soft/supple, full range of motion, no nuchal rigidity Respiratory Exam: Clear to auscultation bilaterally, no wheezes, rales or rhonchi. No tripoding, retractions or increased work of breathing. Speaking in full sentences without difficulties. Cardiovascular Exam: Irregular rate and irregular rhythm, with loud systolic murmur appreciated. Norubs gallops. Gastrointestinal Exam: No pulsations or visible masses, nondistended. Normoactive bowel sounds. Abdomen is soft, nontender, without rebound/guarding. No peritoneal signs appreciated. Musculoskeletal Exam: No calf tenderness or asymmetry, no lower extremity pitting edema. Moving allextremities at the major joint spaces without difficulty. Neurological Exam: Alert and oriented X3. No focal deficit. Smile symmetric. No dysarthria/dysphagia. Tongue midline when protruded. Hard of hearing. Following commands without difficulties. LAB RESULTS (most recent) HEMATOLOGY Lab Results Component Value Date WBC 11.3 (H) 09/21/2024 HGB 6.0 (LL) 09/21/2024 HCT 18.0 (LL) 09/21/2024 MCV 93.3 09/21/2024 PLT 215 09/21/2024 CHEMISTRY Lab Results Component Value Date GLUCOSE 132 (H) 09/21/2024 NA 142 09/21/2024 K 3.2 (L) 09/21/2024 CO2 26 09/21/2024 CL 108 09/21/2024 BUN 34 (H) 09/21/2024 CREATININE 0.94 09/21/2024 EGFR 59 (L) 09/21/2024 CALCIUM 8.9 09/21/2024 ANIONGAP 8 09/21/[address] Angio Abdomen Pelvis wo and/or w Contrast (Results Pending) ASSESSMENT & PLAN Blood per rectum with suspected lower GI bleed Acute blood loss anemia Symptomatic anemia -Bring patient into the hospital, monitor vital signs, ins and outs per floor protocol -H&H noted to 6.0/18.0 -Continue IV PPI -CT of abdomen/pelvis pending at this time -GI consultation placed, see note for recommendations -Will obtain serial CBC -INR elevated at 2.9, hold Coumadin at this time -Type and Screen performed. Will transfuse PRBC, patient signed consent -Clear liquid diet with no red foods -Morning labs: CBC, BMP, mag Hypokalemia -Potassium mildly low at 3.2, supplement and reassess morning labs Leukocytosis -WBC noted to 11.3 -? Stress reaction -Patient is afebrile, denies signs and symptoms of acute infection at this time -Will obtain UA and respiratory viral panel Atrial fibrillation Secondary hypercoagulable state due to atrial fibrillation Hypertension -Continue metoprolol as prescribed. Will also cautiously continue hydrochlorothiazide with strict parameters -Hold Coumadin, follow INR Hyperlipidemia -Continue statin Hypothyroidism -Continue levothyroxine Admission checklist [x] Code status: Full Code - Default [x] VTE Prophylaxis: Sequentials, hold chemical DVT prophylaxis [x] Diet order on admission: Dietary Orders (From admission, onward) Start Ordered 09/21/24 1509 Adult diet [facility]; General, Modified Consistency Options for Liquids and Solids; Regular; Clear Liquid; No Red Liquids Diet effective now Question Answer Comment Location [facility] Diet Type (req) General Diet Type (req) Modified Consistency Options for Liquids and Solids General Diet Regular Modified Consistency Options for Liquids and Solids Clear Liquid Miscellaneous No Red Liquids 09/21/24 1508 [x] Medication reconciliation Health Care proxy with Phone number: Patient's son Yocasta [phone] Case discussed with Cosigned by Srini Cisneros MD at 09/21/2024 6:28 PM EST Associated attestation - Srini Cisneros MD - 09/21/2024 6:28 PM EST This is a split/shared visit with SAGAR Rivera. I personally performed the medical decision making (MDM) for the care of this patient on 09/21/24 as documented below 66-year-old [place] African speaking female with medical history significant for atrial fibrillation currently maintained on Coumadin as well as right lower extremity DVT currently presents with increasedgeneralized weakness and constipation with straining that led to bloody bowel movements in the pastcouple days. I have independently reviewed the patient's medical records as well as vital signs laboratory data and x-rays. Her vital signs are stable. She is anemic with H&H of 6 and 18 and requires 2 units of packed red blood cells. She has Coumadin induced coagulopathy with supratherapeutic INR. CT of the abdomen and pelvis did not reveal any abnormalities except for diverticulosis. After discussion with emergency room team final disc decision has been made to admit the patient [facility] transfused some blood reverse INR and eventually consider endoscopy. There is a good chance that this patient could be having upper GI bleed given disproportionately elevated BUN to creatinine ratio Liquids for now. Replete potassium. Leukocytosis currently does not have any explanation. She is afebrile this could be stress-induced there are no indications for antibiotics given the absence of bacterial infection Chronic management as above Srini Cisneros MD 09/21/24 6:26 PM EST documented in this encounter Procedure Notes * Linsey Jaimes RN - 09/23/2024 11:30 AM EST BLOOD AND PLASMA DONE AND TAKEN DOWN PER ORDER. 1 UNIT PLASMA GIVEN PER ANESTHESIA. PT'S VITAL SIGNS STABLE. ALERT AND ORIENTED. REPORT GIVEN TO LAURA,RN documented in this encounter Consult Notes * Leda Chapman MD - 09/21/2024 2:53 PM EST GI CONSULT CHIEF COMPLAINT: Anemia and hematochezia HPI: Kristen Waite is a 84 y.o. old female who was referred to us by Pierre Pompa MD;Nerm* for evaluation of bloody stools and anemia. Mrs. Waite is a 84-year-old [place] African speaking woman who is onchronic Coumadin for A-fib who first noted bloody stools on . She stopped her Coumadin for 1 day and then restarted it over the weekend. Throughout this time she continued to have bloody stools on a daily basis. She denies any nausea, vomiting, or abdominal pain. Of note the patient is a poor historian even when using a [place] translator/interpreter. It is unclear if she has had bleeding like this before. It is also unclear whether she has had a colonoscopy previously as she gave me 2 contradic ting answers. Patient was noted to have a hemoglobin of 6 on arrival to the emergency room. She hasbeen hemodynamically stable. She has had no significant bleeding since her arrival. She denies the use of aspirin or NSAIDs. Her INR is 2.9 on arrival. ROS: Review of Systems Constitutional: Negative. HENT: Negative. Eyes: Negative. Respiratory: Negative. Cardiovascular: Negative. Gastrointestinal: Positive for blood in stool. Endocrine: Negative. Musculoskeletal: Negative. Skin: Negative. Neurological: Negative. Hematological: Negative. Psychiatric/Behavioral: Negative. PAST MEDICAL HISTORY: Patient Active Problem List Diagnosis Gastrointestinal hemorrhage, unspecified gastrointestinal hemorrhage type Chronic bronchitis Kyphoscoliosis Atrial fibrillation History of right lower extremity DVT on chronic Coumadin Hypertension Hyperlipidemia Hypothyroidism PVD Depression Moderate aortic valve stenosis PAST SURGICAL HISTORY: History reviewed. No pertinent surgical history. SOCIAL HISTORY: Social History Tobacco Use Smoking status: Never Smokeless tobacco: Never Substance Use Topics Alcohol use: Not Currently Drug use: Never FAMILY HISTORY: Family History Problem Relation Name Age of Onset Coronary artery disease Father Coronary artery disease Mother MEDICATIONS: Home medications: (last note I can find from 01/30/24) Levothyroxine, metoprolol, warfarin, simvastatin, sertraline Current Facility-Administered Medications: [START ON 09/22/2024] pantoprazole (PROTONIX) injection 40 mg, 40 mg, intravenous, q12h, Srini Cisneros MD sodium chloride 0.9 % infusion, 42 mL/hr, intravenous, PRN, Srini Cisneros MD No current outpatient medications on file. ALLERGIES: No Known Allergies PHYSICAL EXAM: Visit Vitals BP (!) 146/64 (BP Location: Right arm, Patient Position: Lying) Pulse 87 Comment: afib Temp (S) 37.1 ??C (98.7 ??F) (Oral) Comment (Src): second blood step vs Resp 20 Ht 1.702 m (67 ) Wt 73.9 kg (163 lb) SpO2 100% BMI 25.53 kg/m?? Smoking Status Never BSA 1.85 m?? Physical Exam Constitutional: Appearance: Normal appearance. She is normal weight. HENT: Head: Normocephalic and atraumatic. Ears: Comments: Hard of hearing Nose: Nose normal. Eyes: Conjunctiva/sclera: Conjunctivae normal. Pupils: Pupils are equal, round, and reactive to light. Cardiovascular: Rate and Rhythm: Normal rate. Rhythm irregular. Pulmonary: Effort: Pulmonary effort is normal. Breath sounds: Normal breath sounds. Abdominal: General: Bowel sounds are normal. Palpations: Abdomen is soft. Comments: obese Musculoskeletal: Cervical back: Normal range of motion. Skin: General: Skin is warm and dry. Neurological: General: No focal deficit present. Mental Status: She is alert. LABS: Lab Results Component Value Date WBC 11.3 (H) 09/21/2024 HGB 6.0 (LL) 09/21/2024 HCT 18.0 (LL) 09/21/2024 MCV 93.3 09/21/2024 PLT 215 09/21/2024 , Lab Results Component Value Date GLUCOSE 132 (H) 09/21/2024 CALCIUM 8.9 09/21/2024 NA 142 09/21/2024 K 3.2 (L) 09/21/2024 CO2 26 09/21/2024 CL 108 09/21/2024 BUN 34 (H) 09/21/2024 CREATININE 0.94 09/21/2024 , Lab Results Component Value Date NA 142 09/21/2024 K 3.2 (L) 09/21/2024 CL 108 09/21/2024 CO2 26 09/21/2024 GLUCOSE 132 (H) 09/21/2024 BUN 34 (H) 09/21/2024 CREATININE 0.94 09/21/2024 CALCIUM 8.9 09/21/2024 PROT 5.7 (L) 09/21/2024 ALBUMIN 3.3 09/21/2024 BILITOT 0.5 09/21/2024 AST 15 09/21/2024 ALT 18 09/21/2024 ALKPHOS 56 09/21/2024 EGFR 59 (L) 09/21/2024 , Lab Results Component Value Date ALT 18 09/21/2024 AST 15 09/21/2024 ALKPHOS 56 09/21/2024 BILITOT 0.5 09/21/2024 , Lab Results Component Value Date INR 2.9 09/21/2024 , Lab Results Component Value Date PT 35.4 (H) 09/21/2024 IMAGING: CTA pending ASSESSMENT AND PLAN: 84-year-old [place] African speaking woman on chronic Coumadin for both A-fib and a history of a DVT whopresents with hematochezia and a hemoglobin of 6. Differential diagnosis includes peptic ulcer disease, esophagitis, gastritis, AVMs, dieulaofy lesion, small bowel source, colonic polyp or cancer. Patient is getting transfused and awaiting a CTA. She has been given Protonix empirically. I have discussed with her endoscopy and colonoscopy for complete evaluation. I am not totally clear that she understood our conversation. I do think she should have endoscopic evaluation with EGD and colonoscopyonce her coagulopathy is improved with an INR less than 1.5. Dr. Prado will be following the remainder of this week. I would like to thank Pierre Pompa MD;[facility]* for the opportunity to partake in the patient's care. Board Certified, Gastroenterology and Internal Medicine Gastroenterology and Hepatology Practice [facility] Leda Chapman MD 09/21/24 3:10 PM EST W [phone] [place] [phone] [email or web address] cc: Rylan Ortiz DO documented in this encounter Plan of Treatment Upcoming Encounters Date Type Department Care Team (Late st Contact Info) Description 10/20/2024 12:30 PM EST Consult Orthopedics - [place] [address] [place] [id number] Kavin Xavier PA [address] [place] [address] Scheduled Orders Name Type Priority Associated Diagnoses Orde r Schedule Complete blood count Lab Routine Gastrointestinal hemorrhage, unspecified gastrointestinal hemorrhage type Expected: 09/28/2024, Expires: 09/26/2025 documented as of this encounter Procedures Procedure Name Priority Date/Time Associated Diagnosis Comments HEMOGLOBIN AND HEMATOCRIT Routine 09/26/2024 1:08 PM EST TRANSFUSE RED BLOOD CELLS Routine 09/26/2024 8:49 AM EST PROTHROMBIN TIME WITH INR Routine 09/26/2024 7:13 AM EST PREPARE RBC Routine 09/26/2024 7:02 AM EST CBC WITH AUTO DIFFERENTIAL Routine 09/26/2024 7:00 AM EST CBC AND DIFFERENTIAL Routine 09/26/2024 7:00 AM EST BASIC METABOLIC PANEL Routine 09/26/2024 7:00 AM EST HEMOGLOBIN AND HEMATOCRIT Routine 09/26/2024 12:04 AM EST HEMOGLOBIN AND HEMATOCRIT Routine 09/25/2024 4:47 PM EST TRANSFUSE RED BLOOD CELLS Routine 09/25/2024 11:35 AM EST TYPE AND SCREEN Routine 09/25/2024 8:22 AM EST PREPARE RBC Routine 09/25/2024 8:06 AM EST CBC WITH AUTO DIFFERENTIAL Routine 09/25/2024 7:06 AM EST CBC AND DIFFERENTIAL Routine 09/25/2024 7:06 AM EST BASIC METABOLIC PANEL Routine 09/25/2024 7:06 AM EST HEMOGLOBIN AND HEMATOCRIT Routine 09/24/2024 3:39 PM EST CBC WITH AUTO DIFFERENTIAL Routine 09/24/2024 6:17 AM EST CBC AND DIFFERENTIAL Routine 09/24/2024 6:17 AM EST BASIC METABOLIC PANEL Routine 09/24/2024 6:17 AM EST CBC WITH AUTO DIFFERENTIAL Routine 09/24/2024 2:36 AM EST CBC AND DIFFERENTIAL Routine 09/24/2024 2:36 AM EST HEMOGLOBIN AND HEMATOCRIT Routine 09/23/2024 6:43 PM EST COLONOSCOPY Routine 09/23/2024 11:20 AM EST Gastrointestinal hemorrhage, unspecified EGD Routine 09/23/2024 11:20 AM EST Gastrointestinal [...] WITH INR Routine 09/22/2024 8:03 AM EST COMPLETE BLOOD COUNT Routine 09/22/2024 8:03 AM EST COMPREHENSIVE METABOLIC PANEL Routine 09/22/2024 8:03 AM EST TRANSFUSE RED [...] WITH INR STAT 09/21/2024 11:54 AM EST CBC AND DIFFERENTIAL STAT 09/21/2024 11:54 AM EST TYPE AND SCREEN STAT 09/21/2024 11:54 AM EST COMPREHENSIVE METABOLIC PANEL STAT 09/21/2024 11:54 AM EST AR CRITICAL CARE 30-74 MINUTES Routine 09/21/2024 11:34 AM EST documented in this encounter Results * (ABNORMAL) Hemoglobin and hematocrit (09/26/2024 1:08 PM EST) Hemoglobin 8.0(L) 11.5 - 16.0 g/dL LAB HEMETOLOGY METHOD 09/26/2024 1:31 PM EST [facility] Hematocrit 24.6(L) 35.0 - 47.0 % LAB HEMETOLOGY METHOD 09/26/2024 1:31 PM EST [facility] Blood Venous blood specimen / Unknown Venipuncture / Unknown 09/26/2024 1:08 PM EST 09/26/2024 1:14 PM EST us Luly L Fleurent PA LAB BLOOD ORDERABLES Final Result [facility] [address] [place] [address], * Transfuse RBC (09/26/2024 11:47 AM EST) us Luly L Fleurent PA BLOOD TRANSFUSION ORDERABLE S Final Result * Transfuse RBC: 1 Units (09/26/2024 11:47 AM EST) us Luly L Fleurent PA BLOOD TRANSFUSION ORDERABLE S Final Result * Prothrombin time with INR (09/26/2024 7:13 AM EST) Pathologist [facility] Protime 13.5 10.6 - 13.9 sec LAB COAGULATION METHOD 09/26/2024 7:36 AM EST [facility] INR 1.1 LAB COAGULATION METHOD 09/26/2024 7:36 AM EST [facility] Blood Venous blood specimen / Unknown Venipuncture / Unknown 09/26/2024 7:13 AM EST 09/26/2024 7:20 AM EST us Luly L Fleurent PA LAB BLOOD ORDERABLES Final Result Performing Organization Address [facility] de Phone Number [facility] [address] [place] [address], * Prepare RBC: 1 Units (09/26/2024 7:02 AM EST) Product Code [id number] 09/26/2024 8:50 AM EST [facility] Unit Number [id number] 09/26/19 8:50 AM EST [facility] Crossmatch Compatible 09/26/2024 7:44 AM [facility] Dispense Status Transfused 09/26/2024 8:50 AM [facility] Unit ABO Rh ANEG 09/26/2024 8:50 AM [facility] Unit Expiration Date Time [id number] 09/26/2024 8:50 AM [facility] Unit Blood Type 0600 09/26/2024 8:50 AM [facility] Blood Venous blood specimen / Unknown 09/26/2024 7:02 AM EST 09/25/2024 8:28 AM EST Luly KEITH BLOOD BANK PRODUCT ORDERABL ES Final Result Performing Organization Address [facility]/ZIP Co de Phone Number [facility] [address] [place] [address], [place] [phone] * (ABNORMAL) CBC auto differential (09/26/2024 7:00 AM EST) WBC 5.2 4.8 - 10.8 K/[facility] LAB HEMETOLOGY METHOD 09/26/2024 7:31 AM EST [facility] RBC 2.30(L) 3.80 - 4.80 M/[facility] LAB HEMETOLOGY METHOD 09/26/2024 7:31 AM [facility] Hemoglobin 7.1(L) 11.5 - 16.0 g/dL LAB HEMETOLOGY METHOD 09/26/2024 7:31 AM [facility] Hematocrit 22.0(L) 35.0 - 47.0 % LAB HEMETOLOGY METHOD 09/26/2024 7:31 AM [facility] MCV 94.8 79.0 - 98.0 FL LAB HEMETOLOGY METHOD 09/26/2024 7:31 AM [facility] MCH 30.6 27.0 - 32.0 pcg LAB HEMETOLOGY METHOD 09/26/2024 7:31 AM [facility] MCHC 32.3 32.0 - 37.0 g/dL LAB HEMETOLOGY METHOD 09/26/2024 7:31 AM [facility] RDW 15.2(H) 11.0 - 15.0 % LAB HEMETOLOGY METHOD 09/26/2024 7:31 AM [facility] Platelets 152 130 - 400 K/mcL LAB HEMETOLOGY METHOD 09/26/2024 7:31 AM [facility] MPV 9.4 7.0 - 11.0 FL LAB HEMETOLOGY METHOD 09/26/2024 7:31 AM [facility] NRBC 0.0 <1.0 % LAB HEMETOLOGY METHOD 09/26/2024 7:31 AM [facility] NRBC Absolute 0.00 <0.10 K/mcL LAB HEMETOLOGY METHOD 09/26/2024 7:31 AM [facility] Neutrophils Relative 70.2 % LAB HEMETOLOGY METHOD 09/26/2024 7:31 AM [facility] Lymphocytes Relative 16.2 % LAB HEMETOLOGY METHOD 09/26/2024 7:31 AM [facility] Monocytes Relative 8.9 % LAB HEMETOLOGY METHOD 09/26/2024 7:31 AM [facility] Eosinophils Relative 3.5 % LAB HEMETOLOGY METHOD 09/26/2024 7:31 AM [facility] Basophils Relative 0.6 % LAB HEMETOLOGY METHOD 09/26/2024 7:31 AM [facility] Immature Granulocytes Relative 0.6 % LAB HEMETOLOGY METHOD 09/26/2024 7:31 AM [facility] Neutrophils Absolute 3.64 1.50 - 7.00 K/mcL LAB HEMETOLOGY METHOD 09/26/2024 7:31 AM [facility] Lymphocytes Absolute 0.84(L) 1.00 - 5.00 K/mcL LAB HEMETOLOGY METHOD 09/26/2024 7:31 AM [facility] Monocytes Absolute 0.46 0.20 - 1.00 K/mcL LAB HEMETOLOGY METHOD 09/26/2024 7:31 AM EST [facility] Eosinophils Absolute 0.18 0.00 - 0.50 K/mcL LAB HEMETOLOGY METHOD 09/26/2024 7:31 AM [facility] Basophils Absolute 0.03 0.00 - 0.20 K/mcL LAB HEMETOLOGY METHOD 09/26/2024 7:31 AM [facility] Immature Granulocytes Absolute 0.03 0.00 - 0.03 K/mcL LAB HEMETOLOGY METHOD 09/26/2024 7:31 AM [facility] Blood Venous blood specimen / Unknown Venipuncture / Unknown 09/26/2024 7:00 AM EST 09/26/2024 7:20 AM EST us Luly KEITH LAB BLOOD ORDERABLES Final Result [facility] [address] [place] [address], * (ABNORMAL) Basic metabolic panel (09/26/2024 7:00 AM EST) Sodium 143 133 - 145 mmol/L LAB CHEMISTRY METHOD 09/26/2024 8:10 AM [facility] Potassium 4.2 3.5 - 5.5 mmol/L LAB CHEMISTRY METHOD 09/26/2024 8:10 AM [facility] Chloride 112(H) 96 - 110 mmol/L LAB CHEMISTRY METHOD 09/26/2024 8:10 AM [facility] CO2 29 21 - 32 mmol/L LAB CHEMISTRY METHOD 09/26/2024 8:10 AM [facility] Anion Gap 2(L) 3 - 11 LAB CHEMISTRY METHOD 09/26/2024 8:10 AM [facility] Glucose 95 70 - 100 mg/dL LAB CHEMISTRY METHOD 09/26/2024 8:10 AM [facility] BUN 21 5 - 25 mg/dL LAB CHEMISTRY METHOD 09/26/2024 8:10 AM [facility] Creatinine 0.62 0.50 - 1.10 mg/dL LAB CHEMISTRY METHOD 09/26/2024 8:10 AM [facility] eGFR 87 >=60 mL/min/1. 73m2 LAB CHEMISTRY METHOD 09/26/2024 8:10 AM [facility] Comment:Calculation based on the??Chronic Kidney Disease Epidemiology Collaboration (CKD-EPI) equation refit??without adjustment for race. BUN/Creatinine Ratio 33.9 LAB CHEMISTRY METHOD 09/26/2024 8:10 AM [facility] Calcium 8.3(L) 8.5 - 10.5 mg/dL LAB CHEMISTRY METHOD 09/26/2024 8:10 AM [facility] Blood Venous blood specimen / Unknown Venipuncture / Unknown 09/26/2024 7:00 AM EST 09/26/2024 7:20 AM EST Luly KEITH LAB BLOOD ORDERABLES Final Result [facility] [address] [place] [address], [place] [phone] * (ABNORMAL) Hemoglobin and hematocrit (09/26/2024 12:04 AM EST) Hemoglobin 6.9(L) 11.5 - 16.0 g/dL LAB HEMETOLOGY METHOD 09/26/2024 12:20 AM EST [facility] Hematocrit 20.7(L) 35.0 - 47.0 % LAB HEMETOLOGY METHOD 09/26/2024 12:20 AM EST [facility] Blood Venous blood specimen / Unknown Venipuncture / Unknown 09/26/2024 12:04 AM EST 09/26/2024 12:14 AM EST Luly KEITH LAB BLOOD ORDERABLES Final Result Performing Organization Address [facility] Co de Phone Number [facility] [address] [place] [address], [place] [phone] * (ABNORMAL) Hemoglobin and hematocrit (09/25/2024 4:47 PM EST) Hemoglobin 7.3(L) 11.5 - 16.0 g/dL LAB HEMETOLOGY METHOD 09/25/2024 5:26 PM EST [facility] Hematocrit 22.5(L) 35.0 - 47.0 % LAB HEMETOLOGY METHOD 09/25/2024 5:26 PM EST [facility] Blood Venous blood specimen / Unknown Venipuncture / Unknown 09/25/2024 4:47 PM EST 09/25/2024 5:18 PM EST Luly KEITH LAB BLOOD ORDERABLES Final Result [facility] [address] [place] [address], [place] [phone] * Transfuse RBC (09/25/2024 2:17 PM EST) us Luly KEITH BLOOD TRANSFUSION ORDERABLE S Final Result * Transfuse RBC: 1 Units (09/25/2024 2:17 PM EST) us Lulysa Jordon Munozt PA BLOOD TRANSFUSION ORDERABLE S Final Result * Type and screen (09/25/2024 8:22 AM EST) ABO Group A 09/25/2024 9:33 AM EST [facility] Rh Type Negative 09/25/2024 9:33 AM EST [facility] Antibody Screen Negative 09/25/2024 9:33 AM EST [facility] Blood Venous blood specimen / Unknown Venipuncture / Unknown 09/25/2024 8:22 AM EST 09/25/2024 8:28 AM EST Luly KEITH LAB BLOOD BANK TEST ORDERAB LES Final Result Performing Organization Address [facility]/ZIP Co de Phone Number [facility] [address] [place] [address], [place] [phone] * Prepare RBC: 1 Units (09/25/2024 8:06 AM EST) Product Code [id number] 09/25/2024 11:38 AM EST [facility] Unit Number [id number] 09/25/19 11:38 AM EST [facility] Crossmatch Compatible 09/25/2024 9:46 AM EST [facility] Dispense Status Transfused 09/25/2024 11:38 AM EST [facility] Unit ABO Rh ANEG 09/25/2024 11:38 AM [facility] Unit Expiration Date Time [id number] 09/25/2024 11:38 AM [facility] Unit Blood Type 0600 09/25/2024 11:38 AM [facility] Blood Venous blood specimen / Unknown 09/25/2024 8:06 AM EST 09/25/2024 8:28 AM EST Luly KEITH BLOOD BANK PRODUCT ORDERABL ES Final Result [facility] [address] [place] [address], * (ABNORMAL) CBC auto differential (09/25/2024 7:06 AM EST) WBC 5.3 4.8 - 10.8 K/mcL LAB HEMETOLOGY METHOD 09/25/2024 8:04 AM [facility] RBC 2.10(L) 3.80 - 4.80 M/[facility] LAB HEMETOLOGY METHOD 09/25/2024 8:04 AM [facility] Hemoglobin 6.3(LL) 11.5 - 16.0 g/dL LAB HEMETOLOGY METHOD 09/25/2024 8:04 AM [facility] Hematocrit 19.4(LL) 35.0 - 47.0 % LAB HEMETOLOGY METHOD 09/25/2024 8:04 AM [facility] MCV 94.1 79.0 - 98.0 FL LAB HEMETOLOGY METHOD 09/25/2024 8:04 AM [facility] MCH 30.7 27.0 - 32.0 pcg LAB HEMETOLOGY METHOD 09/25/2024 8:04 AM [facility] MCHC 32.6 32.0 - 37.0 g/dL LAB HEMETOLOGY METHOD 09/25/2024 8:04 AM [facility] RDW 15.5(H) 11.0 - 15.0 % LAB HEMETOLOGY METHOD 09/25/2024 8:04 AM [facility] Platelets 149 130 - 400 K/mcL LAB HEMETOLOGY METHOD 09/25/2024 8:04 AM [facility] MPV 9.4 7.0 - 11.0 FL LAB HEMETOLOGY METHOD 09/25/2024 8:04 AM [facility] NRBC 0.0 <1.0 % LAB HEMETOLOGY METHOD 09/25/2024 8:04 AM [facility] NRBC Absolute 0.00 <0.10 K/mcL LAB HEMETOLOGY METHOD 09/25/2024 8:04 AM [facility] Neutrophils Relative 70.4 % LAB HEMETOLOGY METHOD 09/25/2024 8:04 AM [facility] Lymphocytes Relative 15.3 % LAB HEMETOLOGY METHOD 09/25/2024 8:04 AM [facility] Monocytes Relative 9.7 % LAB HEMETOLOGY METHOD 09/25/2024 8:04 AM [facility] Eosinophils Relative 3.6 % LAB HEMETOLOGY METHOD 09/25/2024 8:04 AM [facility] Basophils Relative 0.6 % LAB HEMETOLOGY METHOD 09/25/2024 8:04 AM [facility] Immature Granulocytes Relative 0.4 % LAB HEMETOLOGY METHOD 09/25/2024 8:04 AM [facility] Neutrophils Absolute 3.72 1.50 - 7.00 K/mcL LAB HEMETOLOGY METHOD 09/25/2024 8:04 AM [facility] Lymphocytes Absolute 0.81(L) 1.00 - 5.00 K/mcL LAB HEMETOLOGY METHOD 09/25/2024 8:04 AM [facility] Monocytes Absolute 0.51 0.20 - 1.00 K/mcL LAB HEMETOLOGY METHOD 09/25/2024 8:04 AM [facility] Eosinophils Absolute 0.19 0.00 - 0.50 K/mcL LAB HEMETOLOGY METHOD 09/25/2024 8:04 AM [facility] Basophils Absolute 0.03 0.00 - 0.20 K/[facility] HEMETOLOGY METHOD 09/25/2024 8:04 AM [facility] Immature Granulocytes Absolute 0.02 0.00 - 0.03 K/[facility] LAB HEMETOLOGY METHOD 09/25/2024 8:04 AM [facility] Blood Venous blood specimen / Unknown Venipuncture / Unknown 09/25/2024 7:06 AM EST 09/25/2024 7:37 AM EST Luly KEITH LAB BLOOD ORDERABLES Final Result [facility] [address] [place] [address], * (ABNORMAL) Basic metabolic panel (09/25/2024 7:06 AM EST) Sodium 143 133 - 145 mmol/L LAB CHEMISTRY METHOD 09/25/2024 8:09 AM [facility] Potassium 4.0 3.5 - 5.5 mmol/L LAB CHEMISTRY METHOD 09/25/2024 8:09 AM [facility] Chloride 110 96 - 110 mmol/L LAB CHEMISTRY METHOD 09/25/2024 8:09 AM [facility] CO2 30 21 - 32 mmol/L LAB CHEMISTRY METHOD 09/25/2024 8:09 AM [facility] Anion Gap 3 3 - 11 LAB CHEMISTRY METHOD 09/25/2024 8:09 AM [facility] Glucose 94 70 - 100 mg/dL LAB CHEMISTRY METHOD 09/25/2024 8:09 AM [facility] BUN 22 5 - 25 mg/dL LAB CHEMISTRY METHOD 09/25/2024 8:09 AM [facility] Creatinine 0.60 0.50 - 1.10 mg/dL LAB CHEMISTRY METHOD 09/25/2024 8:09 AM [facility] eGFR 88 >=60 mL/min/1. 73m2 LAB CHEMISTRY METHOD 09/25/2024 8:09 AM [facility] Comment:Calculation based on the??Chronic Kidney Disease Epidemiology Collaboration (CKD-EPI) equation refit??without adjustment for race. BUN/Creatinine Ratio 36.7 LAB CHEMISTRY METHOD 09/25/2024 8:09 AM [facility] Calcium 8.2(L) 8.5 - 10.5 mg/dL LAB CHEMISTRY METHOD 09/25/2024 8:09 AM [facility] Blood Venous blood specimen / Unknown Venipuncture / Unknown 09/25/2024 7:06 AM EST 09/25/2024 7:37 AM EST Luly KEITH LAB BLOOD ORDERABLES Final Result [facility] [address] [place] [address], * (ABNORMAL) Hemoglobin and hematocrit (09/24/2024 3:39 PM EST) Hemoglobin 7.2(L) 11.5 - 16.0 g/dL LAB HEMETOLOGY METHOD 09/24/2024 4:01 PM [facility] Hematocrit 22.3(L) 35.0 - 47.0 % LAB HEMETOLOGY METHOD 09/24/2024 4:01 PM [facility] Blood Venous blood specimen / Unknown Venipuncture / Unknown 09/24/2024 3:39 PM EST 09/24/2024 3:51 PM EST Luly KEITH LAB BLOOD ORDERABLES Final Result [facility] [address] [place] [address], [place] [phone] * (ABNORMAL) CBC auto differential (09/24/2024 6:17 AM EST) Pathologist [facility] WBC 6.9 4.8 - 10.8 K/mcL LAB HEMETOLOGY METHOD 09/24/2024 7:14 AM [facility] RBC 2.40(L) 3.80 - 4.80 M/mcL LAB HEMETOLOGY METHOD 09/24/2024 7:14 AM [facility] Hemoglobin 7.3(L) 11.5 - 16.0 g/dL LAB HEMETOLOGY METHOD 09/24/2024 7:14 AM [facility] Hematocrit 22.1(L) 35.0 - 47.0 % LAB HEMETOLOGY METHOD 09/24/2024 7:14 AM [facility] MCV 93.2 79.0 - 98.0 FL LAB HEMETOLOGY METHOD 09/24/2024 7:14 AM [facility] MCH 30.8 27.0 - 32.0 pcg LAB HEMETOLOGY METHOD 09/24/2024 7:14 AM [facility] MCHC 33.0 32.0 - 37.0 g/dL LAB HEMETOLOGY METHOD 09/24/2024 7:14 AM [facility] RDW 15.8(H) 11.0 - 15.0 % LAB HEMETOLOGY METHOD 09/24/2024 7:14 AM [facility] Platelets 158 130 - 400 K/mcL LAB HEMETOLOGY METHOD 09/24/2024 7:14 AM [facility] MPV 9.4 7.0 - 11.0 FL LAB HEMETOLOGY METHOD 09/24/2024 7:14 AM [facility] NRBC 0.0 <1.0 % LAB HEMETOLOGY METHOD 09/24/2024 7:14 AM [facility] NRBC Absolute 0.00 <0.10 K/mcL LAB HEMETOLOGY METHOD 09/24/2024 7:14 AM [facility] Neutrophils Relative 77.3 % LAB HEMETOLOGY METHOD 09/24/2024 7:14 AM [facility] Lymphocytes Relative 10.1 % LAB HEMETOLOGY METHOD 09/24/2024 7:14 AM [facility] Monocytes Relative 9.4 % LAB HEMETOLOGY METHOD 09/24/2024 7:14 AM [facility] Eosinophils Relative 2.3 % LAB HEMETOLOGY METHOD 09/24/2024 7:14 AM [facility] Basophils Relative 0.3 % LAB HEMETOLOGY METHOD 09/24/2024 7:14 AM [facility] Immature Granulocytes Relative 0.6 % LAB HEMETOLOGY METHOD 09/24/2024 7:14 AM [facility] Neutrophils Absolute 5.33 1.50 - 7.00 K/mcL LAB HEMETOLOGY METHOD 09/24/2024 7:14 AM [facility] Lymphocytes Absolute 0.70(L) 1.00 - 5.00 K/mcL LAB HEMETOLOGY METHOD 09/24/2024 7:14 AM [facility] Monocytes Absolute 0.65 0.20 - 1.00 K/mcL LAB HEMETOLOGY METHOD 09/24/2024 7:14 AM [facility] Eosinophils Absolute 0.16 0.00 - 0.50 K/mcL LAB HEMETOLOGY METHOD 09/24/2024 7:14 AM [facility] Basophils Absolute 0.02 0.00 - 0.20 K/mcL LAB HEMETOLOGY METHOD 09/24/2024 7:14 AM EST [facility] Immature Granulocytes Absolute 0.04(H) 0.00 - 0.03 K/mcL LAB HEMETOLOGY METHOD 09/24/2024 7:14 AM [facility] Blood Venous blood specimen / Unknown Venipuncture / Unknown 09/24/2024 6:17 AM EST 09/24/2024 6:54 AM EST Luly KIETH LAB BLOOD ORDERABLES Final Result [facility] [address] [place] [address], [place] [phone] * (ABNORMAL) Basic metabolic panel (09/24/2024 6:17 AM EST) Sodium 143 133 - 145 mmol/L LAB CHEMISTRY METHOD 09/24/2024 7:35 AM [facility] Potassium 4.0 3.5 - 5.5 mmol/L LAB CHEMISTRY METHOD 09/24/2024 7:35 AM [facility] Chloride 112(H) 96 - 110 mmol/L LAB CHEMISTRY METHOD 09/24/2024 7:35 AM [facility] CO2 29 21 - 32 mmol/L LAB CHEMISTRY METHOD 09/24/2024 7:35 AM [facility] Anion Gap 2(L) 3 - 11 LAB CHEMISTRY METHOD 09/24/2024 7:35 AM [facility] Glucose 110(H) 70 - 100 mg/dL LAB CHEMISTRY METHOD 09/24/2024 7:35 AM [facility] BUN 19 5 - 25 mg/dL LAB CHEMISTRY METHOD 09/24/2024 7:35 AM [facility] Creatinine 0.71 0.50 - 1.10 mg/dL LAB CHEMISTRY METHOD 09/24/2024 7:35 AM EST [facility] eGFR 83 >=60 mL/min/1. 73m2 LAB CHEMISTRY METHOD 09/24/2024 7:35 AM [facility] Comment:Calculation based on the??Chronic Kidney Disease Epidemiology Collaboration (CKD-EPI) equation refit??without adjustment for race. BUN/Creatinine Ratio 26.8 LAB CHEMISTRY METHOD 09/24/2024 7:35 AM [facility] Calcium 8.5 8.5 - 10.5 mg/dL LAB CHEMISTRY METHOD 09/24/2024 7:35 AM [facility] Blood Venous blood specimen / Unknown Venipuncture / Unknown 09/24/2024 6:17 AM EST 09/24/2024 6:54 AM EST Luly KEITH LAB BLOOD ORDERABLES Final Result [facility] [address] [place] [address], * (ABNORMAL) CBC auto differential (09/24/2024 2:36 AM EST) WBC 6.3 4.8 - 10.8 K/mcL LAB HEMETOLOGY METHOD 09/24/2024 2:52 AM [facility] RBC 2.30(L) 3.80 - 4.80 M/mcL LAB HEMETOLOGY METHOD 09/24/2024 2:52 AM [facility] Hemoglobin 7.2(L) 11.5 - 16.0 g/dL LAB HEMETOLOGY METHOD 09/24/2024 2:52 AM [facility] Hematocrit 21.9(L) 35.0 - 47.0 % LAB HEMETOLOGY METHOD 09/24/2024 2:52 AM [facility] MCV 93.6 79.0 - 98.0 FL LAB HEMETOLOGY METHOD 09/24/2024 2:52 AM [facility] MCH 30.8 27.0 - 32.0 pcg LAB HEMETOLOGY METHOD 09/24/2024 2:52 AM [facility] MCHC 32.9 32.0 - 37.0 g/dL LAB HEMETOLOGY METHOD 09/24/2024 2:52 AM [facility] RDW 16.1(H) 11.0 - 15.0 % LAB HEMETOLOGY METHOD 09/24/2024 2:52 AM [facility] Platelets 146 130 - 400 K/mcL LAB HEMETOLOGY METHOD 09/24/2024 2:52 AM [facility] MPV 9.2 7.0 - 11.0 FL LAB HEMETOLOGY METHOD 09/24/2024 2:52 AM [facility] NRBC 0.0 <1.0 % LAB HEMETOLOGY METHOD 09/24/2024 2:52 AM [facility] NRBC Absolute 0.00 <0.10 K/mcL LAB HEMETOLOGY METHOD 09/24/2024 2:52 AM [facility] Neutrophils Relative 75.3 % LAB HEMETOLOGY METHOD 09/24/2024 2:52 AM [facility] Lymphocytes Relative 11.5 % LAB HEMETOLOGY METHOD 09/24/2024 2:52 AM [facility] Monocytes Relative 9.8 % LAB HEMETOLOGY METHOD 09/24/2024 2:52 AM [facility] Eosinophils Relative 2.8 % LAB HEMETOLOGY METHOD 09/24/2024 2:52 AM [facility] Basophils Relative 0.3 % LAB HEMETOLOGY METHOD 09/24/2024 2:52 AM [facility] Immature Granulocytes Relative 0.3 % LAB HEMETOLOGY METHOD 09/24/2024 2:52 AM EST [facility] Neutrophils Absolute 4.77 1.50 - 7.00 K/mcL LAB HEMETOLOGY METHOD 09/24/2024 2:52 AM [facility] Lymphocytes Absolute 0.73(L) 1.00 - 5.00 K/mcL LAB HEMETOLOGY METHOD 09/24/2024 2:52 AM EST [facility] Monocytes Absolute 0.62 0.20 - 1.00 K/mcL LAB HEMETOLOGY METHOD 09/24/2024 2:52 AM [facility] Eosinophils Absolute 0.18 0.00 - 0.50 K/mcL LAB HEMETOLOGY METHOD 09/24/2024 2:52 AM [facility] Basophils Absolute 0.02 0.00 - 0.20 K/mcL LAB HEMETOLOGY METHOD 09/24/2024 2:52 AM [facility] Immature Granulocytes Absolute 0.02 0.00 - 0.03 K/mcL LAB HEMETOLOGY METHOD 09/24/2024 2:52 AM [facility] Blood Venous blood specimen / Unknown Venipuncture / Unknown 09/24/2024 2:36 AM EST 09/24/2024 2:40 AM EST us Pamela KEITH LAB BLOOD ORDERABLES Final Re sult [facility] [address] [place] [address], * (ABNORMAL) Hemoglobin and hematocrit (09/23/2024 6:43 PM EST) Hemoglobin 7.4(L) 11.5 - 16.0 g/dL LAB HEMETOLOGY METHOD 09/23/2024 7:12 PM EST [facility] Hematocrit 22.7(L) 35.0 - 47.0 % LAB HEMETOLOGY METHOD 09/23/2024 7:12 PM EST [facility] Blood Venous blood specimen / Unknown Venipuncture / Unknown 09/23/2024 6:43 PM EST 09/23/2024 7:06 PM EST Luly KEITH LAB BLOOD ORDERABLES Final Result [facility] [address] [place] [address], * Transfuse RBC (09/23/2024 11:29 AM EST) Tiffany KEITH BLOOD TRANSFUSION ORDERABLES Final Result * Transfuse RBC: 1 Units (09/23/2024 11:29 AM EST) Tiffany KEITH BLOOD TRANSFUSION ORDERABLES Final Result * EGD Anesthesia - MAC; [facility] END[facility]COPY (09/23/2024 11:20 AM EST) Anatomical Region Laterality Modality Endoscopy 09/23/2024 10:4 6 AM EST Impressions 09/23/2024 11:21 AM EST - Z-line regular, 40 cm from the incisors. ? - Normal esophagus. ? - Normal stomach. ? - Normal examined duodenum. ? - No specimens collected. Recommendation: ?- Perform a colonoscopy today. Narrative 09/23/2024 11:21 AM EST [facility] GI Patient Name: Kristen Waite Procedure Date: [...] Procedure Code(s): ? --- Professional --- ? 03462, Esophagogastroduodenoscopy, flexible, ? transoral; diagnostic, including collection of ? specimen(s) by brushing or washing, when performed ? (separate procedure) Diagnosis Code(s): ? --- Professional --- ? K92.2, Gastrointestinal hemorrhage, unspecified CPT copyright 2020 [employer]. All rights reserved. The codes documented in this report are preliminary and upon computer language coder review may be revised to meet current compliance requirements. Hill Prado MD 09/23/2024 11:20:53 AM This report has been signed electronically.Hill Prado MD Number of Addenda: 0 Note Initiated On: 09/23/2024 10:46 AM Scope In: Scope Out: ? Endoscopy Department at [facility] - [address] [place] [address], ? [place] [address] Procedure Note Hill Prado MD - 09/23/2024 [facility] GI Patient Name: Kristen Waite Procedure Date: [...] was normal. Procedure Code(s): --- Professional --- 71746, Esophagogastroduodenoscopy, flexible, transoral; diagnostic, including collection of specimen(s) by brushing or washing, when performed (separate procedure) Diagnosis Code(s): --- Professional --- K92.2, Gastrointestinal hemorrhage, unspecified CPT copyright 2020 [employer]. All rights reserved. The codes documented in this report are preliminary and upon computer language coder reviewmay be revised to meet current compliance requirements. Hill Prado MD 09/23/2024 11:20:53 AM This report has been signed electronically.Hill Prado MD Number of Addenda: 0 Note Initiated On: 09/23/2024 10:46 AM Scope In: Scope Out: Endoscopy Department at [facility] - [address] [place] [id number] IMPRESSION: - Z-line regular, 40 cm from the incisors. - Normal esophagus. - Normal stomach. - Normal examined duodenum. - No specimens collected. Recommendation: - Perform a colonoscopy today. us Hill Prado MD GI~PROCEDURE ORDERABLES Final Result * COLONOSCOPY Anesthesia - MAC; [facility] ENDOSCOPY (09/23/2024 11:20 AM EST) Anatomical Region [...] symptoms persist. Narrative 09/23/2024 11:24 AM EST [facility] GI Patient Name: Kristen Waite Procedure Date: [...] Procedure Code(s): ? --- Professional --- ? 66380, Colonoscopy, flexible; diagnostic, including ? collection of specimen(s) by brushing or washing, when ? performed (separate procedure) Diagnosis Code(s): ? --- Professional --- ? K92.2, Gastrointestinal hemorrhage, unspecified ? D50.9, Iron deficiency anemia, unspecified CPT copyright 2020 [employer]. All rights reserved. The codes documented in this report are preliminary and upon computer language coder review may be revised to meet current compliance requirements. Hill Prado MD 09/23/2024 11:24:30 AM This report has been signed electronically.Hill Prado MD Number of Addenda: 0 Note Initiated On: 09/23/2024 10:46 AM Scope In: Scope Out: ? Endoscopy Department at [facility] - [address] [place] [address], ? [place] [address] Procedure Note Hill Prado MD - 09/23/2024 [facility] GI Patient Name: Kristen Waite Procedure Date: [...] retroflexion views. Procedure Code(s): --- Professional --- 466[address], Colonoscopy, flexible; diagnostic, including collection of specimen(s) by brushing or washing,when performed (separate procedure) Diagnosis Code(s): --- Professional --- K92.2, Gastrointestinal hemorrhage, unspecified D50.9, Iron deficiency anemia, unspecified CPT copyright 2020 [employer]. All rights reserved. The codes documented in this report are preliminary and upon computer language coder reviewmay be revised to meet current compliance requirements. Hill Prado MD 09/23/2024 11:24:30 AM This report has been signed electronically.Hill Prado MD Number of Addenda: 0 Note Initiated On: 09/23/2024 10:46 AM Scope In: Scope Out: Endoscopy Department at [facility] - [address] [place] [id number] IMPRESSION: - Blood in the terminal ileum. [...] of theabdomen with contrast if symptoms persist. Hill Prado MD GI~PROCEDURE ORDERABLES Final Result * Transfuse Plasma (09/23/2024 11:03 AM EST) Luly KEITH BLOOD TRANSFUSION ORDERABLE S Final Result * Prepare Plasma: 2 Units (09/23/2024 7:30 AM EST) Product Code [id number] 09/23/2024 11:01 AM [facility] Unit Number [id number] 09/23/19 11:01 AM [facility] Dispense Status Transfused 09/23/2024 11:01 AM [facility] Unit ABO Rh APOS 09/23/2024 11:01 AM [facility] Unit Expiration Date Time 09/23/2024 11:01 AM [facility] Unit Blood Type 6200 09/23/2024 11:01 AM [facility] Product Code [id number] 09/23/2024 2:18 PM [facility] Unit Number [id number] 09/23/19 2:18 PM [facility] Dispense Status Released From Crossmatch 09/23/2024 2:18 PM [facility] Unit ABO Rh APOS 09/23/2024 2:18 PM [facility] Unit Expiration Date Time [id number] 09/23/2024 2:18 PM [facility] Unit Blood Type 6200 09/23/2024 2:18 PM [facility] Blood Venous blood specimen / Unknown 09/23/2024 7:30 AM EST Luly KEITH BLOOD BANK PRODUCT ORDERABL ES Final Result [facility] [address] [place] [address], * Prepare RBC: 1 Units (09/23/2024 6:30 AM EST) Pathologist [facility] Product Code [id number] 09/23/2024 9:58 AM [facility] Unit Number [id number] 09/23/19 9:58 AM [facility] Crossmatch Compatible 09/23/2024 7:12 AM [facility] Dispense Status Transfused 09/23/2024 9:58 AM [facility] Unit ABO Rh ANEG 09/23/2024 9:58 AM [facility] Unit Expiration Date Time [id number] 09/23/2024 9:58 AM [facility] Unit Blood Type 0600 09/23/2024 9:58 AM [facility] Blood Venous blood specimen / Unknown 09/23/2024 6:30 AM EST 09/21/2024 12:11 PM EST us Tiffany KEITH BLOOD BANK PRODUCT ORDERABLE S Final Result [facility] [address] [place] [address], * (ABNORMAL) CBC auto differential (09/23/2024 5:00 AM EST) [facility] WBC 6.8 4.8 - 10.8 K/mcL LAB HEMETOLOGY METHOD 09/23/2024 5:43 AM [facility] RBC 2.40(L) 3.80 - 4.80 M/mcL LAB HEMETOLOGY METHOD 09/23/2024 5:43 AM [facility] Hemoglobin 7.4(L) 11.5 - 16.0 g/dL LAB HEMETOLOGY METHOD 09/23/2024 5:43 AM [facility] Hematocrit 22.2(L) 35.0 - 47.0 % LAB HEMETOLOGY METHOD 09/23/2024 5:43 AM [facility] MCV 91.7 79.0 - 98.0 FL LAB HEMETOLOGY METHOD 09/23/2024 5:43 AM [facility] MCH 30.6 27.0 - 32.0 pcg LAB HEMETOLOGY METHOD 09/23/2024 5:43 AM [facility] MCHC 33.3 32.0 - 37.0 g/dL LAB HEMETOLOGY METHOD 09/23/2024 5:43 AM [facility] RDW 16.2(H) 11.0 - 15.0 % LAB HEMETOLOGY METHOD 09/23/2024 5:43 AM [facility] Platelets 157 130 - 400 K/mcL LAB HEMETOLOGY METHOD 09/23/2024 5:43 AM [facility] MPV 9.2 7.0 - 11.0 FL LAB HEMETOLOGY METHOD 09/23/2024 5:43 AM [facility] NRBC 0.0 <1.0 % LAB HEMETOLOGY METHOD 09/23/2024 5:43 AM [facility] NRBC Absolute 0.00 <0.10 K/mcL LAB HEMETOLOGY METHOD 09/23/2024 5:43 AM [facility] Neutrophils Relative 80.5 % LAB HEMETOLOGY METHOD 09/23/2024 5:43 AM [facility] Lymphocytes Relative 10.5 % LAB HEMETOLOGY METHOD 09/23/2024 5:43 AM [facility] Monocytes Relative 7.9 % LAB HEMETOLOGY METHOD 09/23/2024 5:43 AM [facility] Eosinophils Relative 0.4 % LAB HEMETOLOGY METHOD 09/23/2024 5:43 AM [facility] Basophils Relative 0.3 % LAB HEMETOLOGY METHOD 09/23/2024 5:43 AM [facility] Immature Granulocytes Relative 0.4 % LAB HEMETOLOGY METHOD 09/23/2024 5:43 AM [facility] Neutrophils Absolute 5.43 1.50 - 7.00 K/mcL LAB HEMETOLOGY METHOD 09/23/2024 5:43 AM [facility] Lymphocytes Absolute 0.71(L) 1.00 - 5.00 K/mcL LAB HEMETOLOGY METHOD 09/23/2024 5:43 AM [facility] Monocytes Absolute 0.53 0.20 - 1.00 K/mcL LAB HEMETOLOGY METHOD 09/23/2024 5:43 AM [facility] Eosinophils Absolute 0.03 0.00 - 0.50 K/mcL LAB HEMETOLOGY METHOD 09/23/2024 5:43 AM [facility] Basophils Absolute 0.02 0.00 - 0.20 K/mcL LAB HEMETOLOGY METHOD 09/23/2024 5:43 AM [facility] Immature Granulocytes Absolute 0.03 0.00 - 0.03 K/mcL LAB HEMETOLOGY METHOD 09/23/2024 5:43 AM [facility] Blood Venous blood specimen / Unknown Venipuncture / Unknown 09/23/2024 5:00 AM EST 09/23/2024 5:38 AM EST us Tiffany KEITH LAB BLOOD ORDERABLES Final R esult [facility] [address] [place] [address], * (ABNORMAL) Prothrombin time with INR (09/23/2024 5:00 AM EST) Protime 23.0(H) 10.6 - 13.9 sec LAB COAGULATION METHOD 09/23/2024 5:48 AM [facility] INR 1.9 LAB COAGULATION METHOD 09/23/2024 5:48 AM [facility] Blood Venous blood specimen / Unknown Venipuncture / Unknown 09/23/2024 5:00 AM EST 09/23/2024 5:38 AM EST us Tiffany KEITH LAB BLOOD ORDERABLES Final R esult [facility] [address] [place] [address], * (ABNORMAL) Basic metabolic panel (09/23/2024 5:00 AM EST) Sodium 144 133 - 145 mmol/L LAB CHEMISTRY METHOD 09/23/2024 6:09 AM [facility] Potassium 3.4(L) 3.5 - 5.5 mmol/L LAB CHEMISTRY METHOD 09/23/2024 6:09 AM [facility] Chloride 109 96 - 110 mmol/L LAB CHEMISTRY METHOD 09/23/2024 6:09 AM [facility] CO2 30 21 - 32 mmol/L LAB CHEMISTRY METHOD 09/23/2024 6:09 AM [facility] Anion Gap 5 3 - 11 LAB CHEMISTRY METHOD 09/23/2024 6:09 AM [facility] Glucose 109(H) 70 - 100 mg/dL LAB CHEMISTRY METHOD 09/23/2024 6:09 AM [facility] BUN 20 5 - 25 mg/dL LAB CHEMISTRY METHOD 09/23/2024 6:09 AM [facility] Creatinine 0.64 0.50 - 1.10 mg/dL LAB CHEMISTRY METHOD 09/23/2024 6:09 AM [facility] eGFR 86 >=60 mL/min/1. 73m2 LAB CHEMISTRY METHOD 09/23/2024 6:09 AM [facility] Comment:Calculation based on the??Chronic Kidney Disease Epidemiology Collaboration (CKD-EPI) equation refit??without adjustment for race. BUN/Creatinine Ratio 31.3 LAB CHEMISTRY METHOD 09/23/2024 6:09 AM [facility] Calcium 8.2(L) 8.5 - 10.5 mg/dL LAB CHEMISTRY METHOD 09/23/2024 6:09 AM [facility] Blood Venous blood specimen / Unknown Venipuncture / Unknown 09/23/2024 5:00 AM EST 09/23/2024 5:37 AM EST us Tiffany KEITH LAB BLOOD ORDERABLES Final R esult [facility] [address] [place] [address], * (ABNORMAL) CBC auto differential (09/23/2024 12:49 AM EST) WBC 8.5 4.8 - 10.8 K/mcL LAB HEMETOLOGY METHOD 09/23/2024 1:02 AM [facility] RBC 2.60(L) 3.80 - 4.80 M/mcL LAB HEMETOLOGY METHOD 09/23/2024 1:02 AM [facility] Hemoglobin 8.0(L) 11.5 - 16.0 g/dL LAB HEMETOLOGY METHOD 09/23/2024 1:02 AM [facility] Hematocrit 23.8(L) 35.0 - 47.0 % LAB HEMETOLOGY METHOD 09/23/2024 1:02 AM [facility] MCV 91.5 79.0 - 98.0 FL LAB HEMETOLOGY METHOD 09/23/2024 1:02 AM [facility] MCH 30.8 27.0 - 32.0 pcg LAB HEMETOLOGY METHOD 09/23/2024 1:02 AM [facility] MCHC 33.6 32.0 - 37.0 g/dL LAB HEMETOLOGY METHOD 09/23/2024 1:02 AM [facility] RDW 16.3(H) 11.0 - 15.0 % LAB HEMETOLOGY METHOD 09/23/2024 1:02 AM [facility] Platelets 170 130 - 400 K/mcL LAB HEMETOLOGY METHOD 09/23/2024 1:02 AM [facility] MPV 9.3 7.0 - 11.0 FL LAB HEMETOLOGY METHOD 09/23/2024 1:02 AM [facility] NRBC 0.0 <1.0 % LAB HEMETOLOGY METHOD 09/23/2024 1:02 AM [facility] NRBC Absolute 0.00 <0.10 K/mcL LAB HEMETOLOGY METHOD 09/23/2024 1:02 AM [facility] Neutrophils Relative 80.2 % LAB HEMETOLOGY METHOD 09/23/2024 1:02 AM [facility] Lymphocytes Relative 9.0 % LAB HEMETOLOGY METHOD 09/23/2024 1:02 AM [facility] Monocytes Relative 9.7 % LAB HEMETOLOGY METHOD 09/23/2024 1:02 AM [facility] Eosinophils Relative 0.5 % LAB HEMETOLOGY METHOD 09/23/2024 1:02 AM [facility] Basophils Relative 0.2 % LAB HEMETOLOGY METHOD 09/23/2024 1:02 AM [facility] Immature Granulocytes Relative 0.4 % LAB HEMETOLOGY METHOD 09/23/2024 1:02 AM [facility] Neutrophils Absolute 6.79 1.50 - 7.00 K/mcL LAB HEMETOLOGY METHOD 09/23/2024 1:02 AM [facility] Lymphocytes Absolute 0.76(L) 1.00 - 5.00 K/[facility] LAB HEMETOLOGY METHOD 09/23/2024 1:02 AM [facility] Monocytes Absolute 0.82 0.20 - 1.00 K/[facility] LAB HEMETOLOGY METHOD 09/23/2024 1:02 AM [facility] Eosinophils Absolute 0.04 0.00 - 0.50 K/[facility] LAB HEMETOLOGY METHOD 09/23/2024 1:02 AM [facility] Basophils Absolute 0.02 0.00 - 0.20 K/[facility] LAB HEMETOLOGY METHOD 09/23/2024 1:02 AM [facility] Immature Granulocytes Absolute 0.03 0.00 - 0.03 K/[facility] LAB HEMETOLOGY METHOD 09/23/2024 1:02 AM [facility] Blood Venous blood specimen / Unknown Venipuncture / Unknown 09/23/2024 12:49 AM EST 09/23/2024 12:58 AM EST us Sanna KEITH LAB BLOOD ORDERABLES Final Resu lt [facility] [address] [place] [address], * (ABNORMAL) Hemoglobin and hematocrit (09/22/2024 6:41 PM EST) Hemoglobin 9.1(L) 11.5 - 16.0 g/dL LAB HEMETOLOGY METHOD 09/22/2024 6:51 PM EST [facility] Hematocrit 27.3(L) 35.0 - 47.0 % LAB HEMETOLOGY METHOD 09/22/2024 6:51 PM [facility] Blood Venous blood specimen / Unknown Venipuncture / Unknown 09/22/2024 6:41 PM EST 09/22/2024 6:45 PM EST us Luly KEITH LAB BLOOD ORDERABLES Final Result [facility] [address] [place] [address], [place] [phone] * (ABNORMAL) Prothrombin time with INR (09/22/2024 8:03 AM EST) Pathologist [facility] Protime 32.4(H) 10.6 - 13.9 sec LAB COAGULATION METHOD 09/22/2024 8:48 AM EST [facility] INR 2.6 LAB COAGULATION METHOD 09/22/2024 8:48 AM [facility] Blood Venous blood specimen / Unknown Venipuncture / Unknown 09/22/2024 8:03 AM EST 09/22/2024 8:17 AM EST Tiffany KEITH LAB BLOOD ORDERABLES Final R esult [facility] [address] [place] [address], [place] [phone] * (ABNORMAL) Comprehensive metabolic panel (09/22/2024 8:03 AM EST) [facility] Sodium 143 133 - 145 mmol/L LAB CHEMISTRY METHOD 09/22/2024 9:13 AM [facility] Potassium 3.7 3.5 - 5.5 mmol/L LAB CHEMISTRY METHOD 09/22/2024 9:13 AM [facility] Chloride 111(H) 96 - 110 mmol/L LAB CHEMISTRY METHOD 09/22/2024 9:13 AM [facility] CO2 26 21 - 32 mmol/L LAB CHEMISTRY METHOD 09/22/2024 9:13 AM [facility] Anion Gap 6 3 - 11 LAB CHEMISTRY METHOD 09/22/2024 9:13 AM [facility] Glucose 99 70 - 100 mg/dL LAB CHEMISTRY METHOD 09/22/2024 9:13 AM [facility] BUN 21 5 - 25 mg/dL LAB CHEMISTRY METHOD 09/22/2024 9:13 AM [facility] Creatinine 0.69 0.50 - 1.10 mg/dL LAB CHEMISTRY METHOD 09/22/2024 9:13 AM [facility] eGFR 85 >=60 mL/min/1. 73m2 LAB CHEMISTRY METHOD 09/22/2024 9:13 AM [facility] Comment:Calculation based on the??Chronic Kidney Disease Epidemiology Collaboration (CKD-EPI) equation refit??without adjustment for race. BUN/Creatinine Ratio 30.4 LAB CHEMISTRY METHOD 09/22/2024 9:13 AM [facility] Calcium 8.9 8.5 - 10.5 mg/dL LAB CHEMISTRY METHOD 09/22/2024 9:13 AM [facility] AST (SGOT) 16 10 - 42 unit/L LAB CHEMISTRY METHOD 09/22/2024 9:13 AM [facility] ALT (SGPT) 16 10 - 60 unit/L LAB CHEMISTRY METHOD 09/22/2024 9:13 AM [facility] Alkaline Phosphatase 58 42 - 121 unit/L LAB CHEMISTRY METHOD 09/22/2024 9:13 AM [facility] Total Protein 5.6(L) 6.0 - 8.0 g/dL LAB CHEMISTRY METHOD 09/22/2024 9:13 AM [facility] Albumin 3.3 3.2 - 5.0 g/dL LAB CHEMISTRY METHOD 09/22/2024 9:13 AM [facility] Total Bilirubin 1.1 0.0 - 1.4 mg/dL LAB CHEMISTRY METHOD 09/22/2024 9:13 AM [facility] Comment:Results verified by repeat testing Blood Venous blood specimen / Unknown Venipuncture / Unknown 09/22/2024 8:03 AM EST 09/22/2024 8:17 AM EST us Tiffany KEITH LAB BLOOD ORDERABLES Final R esult [facility] [address] [place] [address], [place] [phone] * (ABNORMAL) Complete blood count (09/22/2024 8:03 AM EST) [facility] WBC 7.1 4.8 - 10.8 K/mcL LAB HEMETOLOGY METHOD 09/22/2024 8:29 AM [facility] RBC 3.00(L) 3.80 - 4.80 M/mcL LAB HEMETOLOGY METHOD 09/22/2024 8:29 AM [facility] Hemoglobin 8.8(L) 11.5 - 16.0 g/dL LAB HEMETOLOGY METHOD 09/22/2024 8:29 AM [facility] Hematocrit 26.4(L) 35.0 - 47.0 % LAB HEMETOLOGY METHOD 09/22/2024 8:29 AM [facility] MCV 89.2 79.0 - 98.0 FL LAB HEMETOLOGY METHOD 09/22/2024 8:29 AM [facility] MCH 29.7 27.0 - 32.0 pcg LAB HEMETOLOGY METHOD 09/22/2024 8:29 AM [facility] MCHC 33.3 32.0 - 37.0 g/dL LAB HEMETOLOGY METHOD 09/22/2024 8:29 AM [facility] RDW 16.2(H) 11.0 - 15.0 % LAB HEMETOLOGY METHOD 09/22/2024 8:29 AM [facility] Platelets 169 130 - 400 K/mcL LAB HEMETOLOGY METHOD 09/22/2024 8:29 AM EST [facility] MPV 9.2 7.0 - 11.0 FL LAB HEMETOLOGY METHOD 09/22/2024 8:29 AM EST [facility] NRBC 0.0 <1.0 % LAB HEMETOLOGY METHOD 09/22/2024 8:29 AM [facility] NRBC Absolute 0.00 <0.10 K/mcL LAB HEMETOLOGY METHOD 09/22/2024 8:29 AM [facility] Blood Venous blood specimen / Unknown Venipuncture / Unknown 09/22/2024 8:03 AM EST 09/22/2024 8:17 AM EST us Tiffany KEITH LAB BLOOD ORDERABLES Final R esult [facility] [address] [place] [address], * Transfuse RBC (09/22/2024 6:11 AM EST) us Tiffany KEITH BLOOD TRANSFUSION ORDERABLES Final Result * Transfuse RBC: 1 Units (09/22/2024 6:11 AM EST) us Tiffany KEITH BLOOD TRANSFUSION ORDERABLES Final Result * Prepare RBC: 1 Units (09/22/2024 2:57 AM EST) [facility] Signature Product Code [id number] 09/22/2024 3:44 AM [facility] Unit Number [id number] 09/22/19 3:44 AM [facility] Crossmatch Compatible 09/22/2024 3:12 AM [facility] Dispense Status Transfused 09/22/2024 3:44 AM [facility] Unit ABO Rh ANEG 09/22/2024 3:44 AM [facility] Unit Expiration Date Time [id number] 09/22/2024 3:44 AM [facility] Unit Blood Type 0600 09/22/2024 3:44 AM [facility] Blood Venous blood specimen / Unknown 09/22/2024 2:57 AM EST 09/21/2024 12:11 PM EST us Tiffany KEITH BLOOD BANK PRODUCT ORDERABLE S Final Result [facility] [address] [place] [address], [place] [phone] * Transfuse RBC (09/22/2024 12:13 AM EST) us Srini Cisneros MD BLOOD TRANSFUSION ORDERABLES F inal Result * Transfuse RBC: 2 Units (09/22/2024 12:13 AM EST) us Srini Cisneros MD BLOOD TRANSFUSION ORDERABLES F inal Result * (ABNORMAL) CBC auto differential (09/21/2024 11:18 PM EST) [facility] WBC 5.7 4.8 - 10.8 K/mcL LAB HEMETOLOGY METHOD 09/22/2024 12:00 AM [facility] RBC 2.40(L) 3.80 - 4.80 M/mcL LAB HEMETOLOGY METHOD 09/22/2024 12:00 AM [facility] Hemoglobin 7.2(L) 11.5 - 16.0 g/dL LAB HEMETOLOGY METHOD 09/22/2024 12:00 AM [facility] Hematocrit 21.2(L) 35.0 - 47.0 % LAB HEMETOLOGY METHOD 09/22/2024 12:00 AM [facility] MCV 89.8 79.0 - 98.0 FL LAB HEMETOLOGY METHOD 09/22/2024 12:00 AM [facility] MCH 30.5 27.0 - 32.0 pcg LAB HEMETOLOGY METHOD 09/22/2024 12:00 AM [facility] MCHC 34.0 32.0 - 37.0 g/dL LAB HEMETOLOGY METHOD 09/22/2024 12:00 AM [facility] RDW 16.0(H) 11.0 - 15.0 % LAB HEMETOLOGY METHOD 09/22/2024 12:00 AM [facility] Platelets 154 130 - 400 K/mcL LAB HEMETOLOGY METHOD 09/22/2024 12:00 AM [facility] MPV 9.5 7.0 - 11.0 FL LAB HEMETOLOGY METHOD 09/22/2024 12:00 AM [facility] NRBC 0.0 <1.0 % LAB HEMETOLOGY METHOD 09/22/2024 12:00 AM [facility] NRBC Absolute 0.00 <0.10 K/mcL LAB HEMETOLOGY METHOD 09/22/2024 12:00 AM [facility] Neutrophils Relative 71.2 % LAB HEMETOLOGY METHOD 09/22/2024 12:00 AM [facility] Lymphocytes Relative 15.7 % LAB HEMETOLOGY METHOD 09/22/2024 12:00 AM [facility] Monocytes Relative 11.7 % LAB HEMETOLOGY METHOD 09/22/2024 12:00 AM [facility] Eosinophils Relative 0.5 % LAB HEMETOLOGY METHOD 09/22/2024 12:00 AM [facility] Basophils Relative 0.4 % LAB HEMETOLOGY METHOD 09/22/2024 12:00 AM [facility] Immature Granulocytes Relative 0.5 % LAB HEMETOLOGY METHOD 09/22/2024 12:00 AM [facility] Neutrophils Absolute 4.03 1.50 - 7.00 K/mcL LAB HEMETOLOGY METHOD 09/22/2024 12:00 AM EST [facility] Lymphocytes Absolute 0.89(L) 1.00 - 5.00 K/mcL LAB HEMETOLOGY METHOD 09/22/2024 12:00 AM EST [facility] Monocytes Absolute 0.66 0.20 - 1.00 K/mcL LAB HEMETOLOGY METHOD 09/22/2024 12:00 AM EST [facility] Eosinophils Absolute 0.03 0.00 - 0.50 K/mcL LAB HEMETOLOGY METHOD 09/22/2024 12:00 AM [facility] Basophils Absolute 0.02 0.00 - 0.20 K/mcL LAB HEMETOLOGY METHOD 09/22/2024 12:00 AM [facility] Immature Granulocytes Absolute 0.03 0.00 - 0.03 K/mcL LAB HEMETOLOGY METHOD 09/22/2024 12:00 AM [facility] Blood Venous blood specimen / Unknown Venipuncture / Unknown 09/21/2024 11:18 PM EST 09/21/2024 11:54 PM EST Sanna KEITH LAB BLOOD ORDERABLES Final Resu lt [facility] [address] [place] [address], * Transfuse RBC (09/21/2024 9:48 PM EST) Srini Cisneros MD BLOOD TRANSFUSION ORDERABLES F inal Result * CT Angio Abdomen Pelvis wo and/or [...] appendix. The bones are intact. Procedure Note Aderholdt-Alejandra Julian MD - 09/21/2024 INDICATION: GI bleed CT [...] by: Alejandra Julian MD on 09/21/2024 17:44:33 Srini Cisneros MD IM CT PROCEDURES Final Result * Prepare RBC: 2 Units (09/21/2024 1:45 PM EST) Product Code [id number] 09/21/2024 2:28 PM EST [facility] Unit Number [id number] 09/21/19 2:28 PM [facility] Crossmatch Compatible 09/21/2024 2:10 PM [facility] Dispense Status Transfused 09/21/2024 2:28 PM EST [facility] Unit ABO Rh ANEG 09/21/2024 2:28 PM EST [facility] Unit Expiration Date Time [id number] 09/21/2024 2:28 PM EST [facility] Unit Blood Type 0600 09/21/2024 2:28 PM [facility] Product Code [id number] 09/21/2024 6:39 PM [facility] Unit Number [id number] 09/21/19 6:39 PM [facility] Crossmatch Compatible 09/21/2024 2:10 PM EST [facility] Dispense Status Transfused 09/21/2024 6:39 PM [facility] Unit ABO Rh ANEG 09/21/2024 6:39 PM [facility] Unit Expiration Date Time [id number] 09/21/2024 6:39 PM [facility] Unit Blood Type 0600 09/21/2024 6:39 PM [facility] Blood Venous blood specimen / Unknown 09/21/2024 1:45 PM EST 09/21/2024 12:11 PM EST us Pierre Pompa MD BLOOD BANK PRODUCT ORDERABLES Final Result [facility] [address] [place] [address], * (ABNORMAL) CBC auto differential (09/21/2024 11:54 AM EST) [facility] WBC 11.3(H) 4.8 - 10.8 K/mcL LAB HEMETOLOGY METHOD 09/21/2024 12:38 PM [facility] RBC 1.90(L) 3.80 - 4.80 M/mcL LAB HEMETOLOGY METHOD 09/21/2024 12:38 PM [facility] Hemoglobin 6.0(LL) 11.5 - 16.0 g/dL LAB HEMETOLOGY METHOD 09/21/2024 12:38 PM [facility] Hematocrit 18.0(LL) 35.0 - 47.0 % LAB HEMETOLOGY METHOD 09/21/2024 12:38 PM [facility] MCV 93.3 79.0 - 98.0 FL LAB HEMETOLOGY METHOD 09/21/2024 12:38 PM [facility] MCH 30.9 27.0 - 32.0 pcg LAB HEMETOLOGY METHOD 09/21/2024 12:38 PM [facility] MCHC 33.1 32.0 - 37.0 g/dL LAB HEMETOLOGY METHOD 09/21/2024 12:38 PM [facility] RDW 16.5(H) 11.0 - 15.0 % LAB HEMETOLOGY METHOD 09/21/2024 12:38 PM [facility] Platelets 215 130 - 400 K/mcL LAB HEMETOLOGY METHOD 09/21/2024 12:38 PM [facility] MPV 9.8 7.0 - 11.0 FL LAB HEMETOLOGY METHOD 09/21/2024 12:38 PM [facility] NRBC 0.2 <1.0 % LAB HEMETOLOGY METHOD 09/21/2024 12:38 PM [facility] NRBC Absolute 0.02 <0.10 K/mcL LAB HEMETOLOGY METHOD 09/21/2024 12:38 PM [facility] Neutrophils Relative 85.9 % LAB HEMETOLOGY METHOD 09/21/2024 12:38 PM [facility] Lymphocytes Relative 6.8 % LAB HEMETOLOGY METHOD 09/21/2024 12:38 PM [facility] Monocytes Relative 6.4 % LAB HEMETOLOGY METHOD 09/21/2024 12:38 PM [facility] Eosinophils Relative 0.0 % LAB HEMETOLOGY METHOD 09/21/2024 12:38 PM [facility] Basophils Relative 0.3 % LAB HEMETOLOGY METHOD 09/21/2024 12:38 PM [facility] Immature Granulocytes Relative 0.6 % LAB HEMETOLOGY METHOD 09/21/2024 12:38 PM [facility] Neutrophils Absolute 9.66(H) 1.50 - 7.00 K/mcL LAB HEMETOLOGY METHOD 09/21/2024 12:38 PM [facility] Lymphocytes Absolute 0.77(L) 1.00 - 5.00 K/mcL LAB HEMETOLOGY METHOD 09/21/2024 12:38 PM [facility] Monocytes Absolute 0.72 0.20 - 1.00 K/mcL LAB HEMETOLOGY METHOD 09/21/2024 12:38 PM [facility] Eosinophils Absolute 0.00 0.00 - 0.50 K/mcL LAB HEMETOLOGY METHOD 09/21/2024 12:38 PM [facility] Basophils Absolute 0.03 0.00 - 0.20 K/mcL LAB HEMETOLOGY METHOD 09/21/2024 12:38 PM [facility] Immature Granulocytes Absolute 0.07(H) 0.00 - 0.03 K/mcL LAB HEMETOLOGY METHOD 09/21/2024 12:38 PM EST [facility] Blood Venous blood specimen / Unknown Venipuncture / Unknown 09/21/2024 11:54 AM EST 09/21/2024 12:11 PM EST [facility] Nowak MD LAB BLOOD ORDERABLES Final Result Performing Organization Address City/[facility]/ZIP Co de Phone Number [facility] [address] [place] [address], [place] [phone] * (ABNORMAL) Protime-INR (09/21/2024 11:54 AM EST) Protime 35.4(H) 10.6 - 13.9 sec LAB COAGULATION METHOD 09/21/2024 12:28 PM EST [facility] INR 2.9 LAB COAGULATION METHOD 09/21/2024 12:28 PM EST [facility] Blood Venous blood specimen / Unknown Venipuncture / Unknown 09/21/2024 11:54 AM EST 09/21/2024 12:11 PM EST Cheikh Nowak MD LAB BLOOD ORDERABLES Final Result Performing Organization Address City/[facility]/ZIP Co de Phone Number [facility] [address] [place] [address], [place] [phone] * Type and screen (09/21/2024 11:54 AM EST) ABO Group A 09/21/2024 1:26 PM EST [facility] Rh Type Negative 09/21/2024 1:26 PM EST [facility] Antibody Screen Negative 09/21/2024 1:26 PM EST [facility] Blood Venous blood specimen / Unknown Venipuncture / Unknown 09/21/2024 11:54 AM EST 09/21/2024 12:11 PM EST us Cheikh Nowak MD LAB BLOOD BANK TEST ORDERAB LES Final Result [facility] [address] [place] [address], * (ABNORMAL) Comprehensive metabolic panel (09/21/2024 11:54 AM EST) Sodium 142 133 - 145 mmol/L LAB CHEMISTRY METHOD 09/21/2024 12:50 PM [facility] Potassium 3.2(L) 3.5 - 5.5 mmol/L LAB CHEMISTRY METHOD 09/21/2024 12:50 PM [facility] Chloride 108 96 - 110 mmol/L LAB CHEMISTRY METHOD 09/21/2024 12:50 PM [facility] CO2 26 21 - 32 mmol/L LAB CHEMISTRY METHOD 09/21/2024 12:50 PM [facility] Anion Gap 8 3 - 11 LAB CHEMISTRY METHOD 09/21/2024 12:50 PM [facility] Glucose 132(H) 70 - 100 mg/dL LAB CHEMISTRY METHOD 09/21/2024 12:50 PM [facility] BUN 34(H) 5 - 25 mg/dL LAB CHEMISTRY METHOD 09/21/2024 12:50 PM [facility] Creatinine 0.94 0.50 - 1.10 mg/dL LAB CHEMISTRY METHOD 09/21/2024 12:50 PM [facility] eGFR 59(L) >=60 mL/min/1. 73m2 LAB CHEMISTRY METHOD 09/21/2024 12:50 PM [facility] Comment:Calculation based on the??Chronic Kidney Disease Epidemiology Collaboration (CKD-EPI) equation refit??without adjustment for race. BUN/Creatinine Ratio 36.2 LAB CHEMISTRY METHOD 09/21/2024 12:50 PM [facility] Calcium 8.9 8.5 - 10.5 mg/dL LAB CHEMISTRY METHOD 09/21/2024 12:50 PM [facility] AST (SGOT) 15 10 - 42 unit/L LAB CHEMISTRY METHOD 09/21/2024 12:50 PM [facility] ALT (SGPT) 18 10 - 60 unit/L LAB CHEMISTRY METHOD 09/21/2024 12:50 PM [facility] Alkaline Phosphatase 56 42 - 121 unit/L LAB CHEMISTRY METHOD 09/21/2024 12:50 PM [facility] Total Protein 5.7(L) 6.0 - 8.0 g/dL LAB CHEMISTRY METHOD 09/21/2024 12:50 PM [facility] Albumin 3.3 3.2 - 5.0 g/dL LAB CHEMISTRY METHOD 09/21/2024 12:50 PM [facility] Total Bilirubin 0.5 0.0 - 1.4 mg/dL LAB CHEMISTRY METHOD 09/21/2024 12:50 PM [facility] Blood Venous blood specimen / Unknown Venipuncture / Unknown 09/21/2024 11:54 AM EST 09/21/2024 12:11 PM EST us Cheikh Nowak MD LAB BLOOD ORDERABLES Final Result Performing Organization Address City/State/[facility] Co de Phone Number [facility] [address] [place] [address], * [facility] 30-74 MINUTES (09/21/2024 11:34 AM [...] Pompa MD IN CLINIC/BEDSIDE ORDERABLES Final Result documented in this encounter Visit Diagnoses Diagnosis Gastrointestinal hemorrhage, unspecified gastrointestinal hemorrhage type- Primary Gastrointestinal hemorrhage, unspecified gastrointestinal hemorrhage type Gastrointestinal hemorrhage, unspecified documented in this encounter Admitting Diagnoses Diagnosis Gastrointestinal hemorrhage, unspecified gastrointestinal hemorrhage type documented in this encounter Administered Medications Inactive Administered Medications - up to 3 most recent administrations Medication Order MAR Action Action Date Dose Rate Site acetaminophen (TYLENOL) tablet 650 mg 650 mg, oral, Every 6 hours PRN, mild pain, headaches, fever - temperature GREATER than 38 C (100.4 F), Starting on Sat09/21/24 at 1705 atorvastatin (LIPITOR) tablet 10 mg 10 mg, oral, Nightly, First dose on Sat09/21/24 at 2100 Given 09/25/2024 9:33 PM EST 10 mg Given 09/24/2024 9:26 PM EST 10 mg Given 09/23/2024 8:22 PM EST 10 mg hydroCHLOROthiazide (HYDRODIURIL) tablet 25 mg 25 mg, oral, Daily, First dose on Sat09/26/24 at 0900 Given 09/26/2024 8:54 AM EST 25 mg iopamidoL (ISOVUE-370) 370 mg iodine /mL (76 %) injection 100 mL 100 mL, intravenous, Once in imaging, Starting on Sat09/21/24 at 1713, For 1 dose Given 09/21/2024 5:14 PM EST 9 0 mL levothyroxine (SYNTHROID, LEVOTHROID) tablet 175 mcg 175 mcg, oral, Every morning before breakfast, First dose on Sat09/22/24 at 0700, ORAL ROUTE: take on an empty stomach and separate from other medications. ENTERAL TUBE ROUTE: If newly initiated enteral nutrition duration is over 5 days, hold enteral nutrition 1 hour before and after drug administration, per ASPEN guidelines. Given 09/26/2024 6:48 AM ES T 175 mcg Given 09/25/2024 6:07 AM EST 175 mcg Given 09/24/2024 6:04 AM EST 175 mcg metoprolol succinate (TOPROL-XL) 24 Hour tablet 50 mg 50 mg, oral, Daily, First dose on Sat09/22/24 at 0900, Hold if sbp < 110 or HR< 60 Do not crush or chew. Given 09/25/2024 8:55 AM EST 50 mg Given 09/24/2024 9:41 AM EST 50 mg Given 09/23/2024 9:33 AM EST 50 mg ondansetron (PF) (ZOFRAN) injection 4 mg 4 mg, intravenous, Every 6 hours PRN, nausea, vomiting, Starting on Sat09/21/24 at 1706 pantoprazole (PROTONIX) injection 40 mg 40 mg, intravenous, Administer over 2 Minutes, Every 12 hours, First dose on Sat09/22/24 at 0147, For 15 doses, Pantroprazole - IV push: Reconstitute powder for injection with 10 mL NS; final concentration: 4 mg/mL., Indication for IV Push Pantoprazole? EGD evidence of PUD with stigmata or Upper G.I. Bleed Given 09/26/2024 2:04 PM EST 40 mg Given 09/26/2024 1:52 AM EST 40 mg Given 09/25/2024 2:52 PM EST 40 mg pantoprazole (PROTONIX) injection 80 mg 80 mg, intravenous, Administer over 2 Minutes, Once, On Sat09/21/24 at 1347, For 1 dose, Pantroprazole - IV push: Reconstitute powder for injection with 10 mL NS; final concentration: 4 mg/mL., Indication for IV Push Pantoprazole? EGD evidence of PUD with stigmata or Upper G.I. Bleed Given 09/21/2024 2:06 PM EST 80 mg phytonadione (VITAMIN K) 1 mg/mL solution 5 mg 5 mg, oral, Once, On Sat09/22/24 at 1245, For 1 dose, After administration of oral Vitamin K: -Expect reduction of INR within 24-48 hours -Repeat INR 24 hours post-dose Given 09/22/2024 2:41 PM EST 5 mg polyethylene glycol (GoLYTELY) solution 4,000 mL 4,000 mL, oral, Once, On Sat09/22/24 at 1500, For 1 dose, Administer 240 mL (8 oz) every 10 minutes until 4 L are consumed or the rectal effluent is clear. Using the container provided, add lukewarm water (may use tap water) up to the 4 L water alvaro; shake vigorously several times to ensure dissolution of the powder. No additional ingredients (eg, flavorings or starch-based thickeners) should be used to reconstitute or added to the solution (other than the flavor packets provided). Given 09/22/2024 3:47 PM EST 4,000 mL potassium chloride (KLOR-CON M20) CR tablet 20 mEq 20 mEq, oral, Once, On Sat09/21/24 at 1921, For 1 dose, Tablet may be swallowed whole (do not crush/chew/suck on) OR broken in half and each half swallowed separately OR dissolved (whole tablet) in ~4 ounces of water (allow ~2 minutes to dissolve, stir well and administer immediately). Given 09/21/2024 8:48 PM EST 20 mEq potassium chloride (KLOR-CON M20) CR tablet 40 mEq 40 mEq, oral, Once, On Sat09/21/24 at 1721, For 1 dose, Tablet may be swallowed whole (do not crush/chew/suck on) OR broken in half and each half swallowed separately OR dissolved (whole tablet) in ~4 ounces of water (allow ~2 minutes to dissolve, stir well and administer immediately). Given 09/21/2024 5:51 PM EST 40 mEq potassium chloride (KLOR-CON M20) CR tablet 40 mEq 40 mEq, oral, Once, On Sat09/23/24 at 0745, For 1 dose, Tablet may be swallowed whole (do not crush/chew/suck on) OR broken in half and each half swallowed separately OR dissolved (whole tablet) in ~4 ounces of water (allow ~2 minutes to dissolve, stir well and administer immediately). Given 09/23/2024 9:33 AM EST 40 mEq sodium chloride 0.9 % flush 10 mL 10 mL, intravenous, Once, On Sat09/21/24 at 1715, For 1 dose Given 09/21/2024 5:14 PM EST 10 mL sodium chloride 0.9 % flush 10 mL 10 mL, intravenous, 2 times daily, First dose on Sat09/23/24 at 1000, Preprocedure Given 09/26/2024 8:54 AM EST 10 mL Given 09/25/2024 9:45 PM EST 10 mL Given 09/25/2024 9:12 AM EST 10 mL sodium chloride 0.9 % flush 10 mL 10 mL, intravenous, As needed, line care, Starting on Sat09/23/24 at 0941, Preprocedure sodium chloride 0.9 % infusion 42 mL/hr, intravenous, As needed, pre-, and post- transfusion as needed for line flush purposes, in conjunction with blood product transfusion only, Starting on Sat09/21/24 at 1343, -Use only the amount required from a 250 mL bag of NS to adequately flush -A new NS bag is required with each new unit of blood administered sodium chloride 0.9 % infusion 42 mL/hr, [...] administered New Bag 09/23/2024 10:49 AM EST sodium chloride 0.9 % infusion 42 mL/hr, intravenous, As needed, pre-, and post- transfusion as needed for line flush purposes, in conjunction with blood product transfusion only, Starting on Sat09/23/24 at 0729, -Use only the amount required from a 250 mL bag of NS to adequately flush -A new NS bag is required with each new unit of blood administered sodium chloride 0.9 % infusion 42 mL/hr, intravenous, As needed, pre-, and post- transfusion as needed for line flush purposes, in conjunction with blood product transfusion only, Starting on Sat09/25/24 at 0805, -Use only the amount required from a 250 mL bag of NS to adequately flush -A new NS bag is required with each new unit of blood administered sodium chloride 0.9 % infusion 42 mL/hr, intravenous, As needed, pre-, and post- transfusion as needed for line flush purposes, in conjunction with blood product transfusion only, Starting on 09/26/24 at 0701, -Use only the amount required from a 250 mL bag of NS to adequately flush -A new NS bag is required with each new unit of blood administered documented in this encounter Discontinued Medications Medication Sig Discontinue Reason Start Date End Da te metoprolol succinate (TOPROL-XL) 50 mg 24 hr tablet Take 1 tablet (50 mg total) by mouth 1 (one) time each day. 03/06/2018 09/26/2024 warfarin (COUMADIN) 5 mg tablet Take 1 tablet (5 mg total) by mouth 1 (one) time each day with dinner. Stop Taking at Discharge 07/02/2006 09/26/2024 documented as of this encounter Historical Medications * This list may reflect changes made after this encounter. simvastatin (ZOCOR) 10 mg tablet Take 1 tablet (10 mg total) by mouth at bedtime. 04/01/2018 levothyroxine (SYNTHROID, LEVOTHROID) 175 mcg tablet Take 1 tablet (175 mcg total) by mouth 1 (one) time each day before breakfast. 08/21/2024 hydroCHLOROthiazi de (HYDRODIURIL) 25 mg tablet Take 1 tablet (25 mg total) by mouth 1 (one) time each day. 02/12/2018 warfarin (COUMADIN) 5 mg tablet Take 1 tablet (5 mg total) by mouth 1 (one) time each day with dinner. 07/02/2006 09/26/2024 metoprolol succinate (TOPROL-XL) 50 mg 24 hr tablet Take 1 tablet (50 mg total) by mouth 1 (one) time each day. 03/06/2018 09/26/2024 added in this encounter Active and Recently Administered Medications Times are shown in EST. Scheduled Medication Order 09/24/2024 09/25/2024 09/26/2024 atorvastatin (LIPITOR) tablet 10 mg 10 mg, oral, Nightly, First dose on 09/21/24 at 2100 2126 (Given - Provider: Anny Hudson RN) 2133 (Given - Provider: Anny Hudson RN) hydroCHLOROthiazide (HYDRODIURIL) tablet 25 mg 25 mg, oral, Daily, First dose on Sat09/26/24 at 0900 0854 (Given - Provid er: Gustavo Maldonado RN) levothyroxine (SYNTHROID, LEVOTHROID) tablet 175 mcg 175 mcg, oral, Every morning before breakfast, First dose on Sat09/22/24 at 0700, ORAL ROUTE: take on an empty stomach and separate from other medications. ENTERAL TUBE ROUTE: If newly initiated enteral nutrition duration is over 5 days, hold enteral nutrition 1 hour before and after drug administration, per ASPEN guidelines. 0604 (Given - Provider: Betsy Iniguez RN) 0607 (Given - Provider: Anny Hudson RN) 0648 (Given - Provider: Anny Hudson RN) metoprolol succinate (TOPROL-XL) 24 Hour tablet 50 mg 50 mg, oral, Daily, First dose on Sat09/22/24 at 0900, Hold if sbp < 110 or HR< 60 Do not crush or chew. 0941 (Given - Provider: Reema Henson, RN) 0855 (Given - Provider: Linsey Cadena, RN) 0901 (Not Given - Provider: Gustavo Maldonado RN - Reason: Contraindicated - Comment: Held by PA order for BP 112/69) pantoprazole (PROTONIX) injection 40 mg 40 mg, intravenous, Administer over 2 Minutes, Every 12 hours, First dose on Sat09/22/24 at 0147, For 15 doses, Pantroprazole - IV push: Reconstitute powder for injection with 10 mL NS; final concentration: 4 mg/mL., Indication for IV Push Pantoprazole? EGD evidence of PUD with stigmata or Upper G.I. Bleed 0147 (Given - Provider: Betsy Iniguez RN)1437 (Given - Provider: Reema Henson, HARRISON) 0306 (Given - Provider: Anny Hudson, HARRISON)1452 (Given - Provider: Linsey Cadena, RN) 0152 (Given - Provider: Anny Hudson, HARRISON)1404 (Given - Provider: Gustavo Maldonado, HARRISON) sodium chloride 0.9 % flush 10 mL(Linked Group 1) 10 mL, intravenous, 2 times daily, First dose on Sat09/23/24 at 1000, Preprocedure 0941 (Given - Provider: Reema Henson, RN)2136 (Given - Provider: Anny Hudson, RN) 0912 (Given - Provider: Linsey Cadena, RN)2145 (Given - Provider: Anny Hudson, RN) 0854 (Given - Provider: Gustavo Maldonado, HARRISON) PRN Medication Order 09/24/2024 09/25/2024 09/26/2024 acetaminophen (TYLENOL) tablet 650 mg 650 mg, oral, Every 6 hours PRN, mild pain, headaches, fever - temperature GREATER than 38 C (100.4 F), Starting on Sat09/21/24 at 1705 ondansetron (PF) (ZOFRAN) injection 4 mg 4 mg, intravenous, Every 6 hours PRN, nausea, vomiting, Starting on Sat09/21/24 at 1706 sodium chloride 0.9 % flush 10 mL(Linked Group 1) 10 mL, intravenous, As needed, line care, Starting on Sat09/23/24 at 0941, Preprocedure sodium chloride 0.9 % infusion 42 mL/hr, intravenous, As needed, pre-, and post- transfusion as needed for line flush purposes, in conjunction with blood product transfusion only, Starting on Sat09/21/24 at 1343, -Use only the amount required from a 250 mL bag of NS to adequately flush -A new NS bag is required with each new unit of blood administered sodium chloride 0.9 % infusion 42 mL/hr, intravenous, As needed, pre-, and post- transfusion as needed for line flush purposes, in conjunction with blood product transfusion only, Starting on Sat09/23/24 at 0629, -Use only the amount required from a 250 mL bag of NS to adequately flush -A new NS bag is required with each new unit of blood administered 1903 (Due: Stopped) sodium chloride 0.9 % infusion 42 mL/hr, intravenous, As needed, pre-, and post- transfusion as needed for line flush purposes, in conjunction with blood product transfusion only, Starting on Sat09/23/24 at 0729, -Use only the amount required from a 250 mL bag of NS to adequately flush -A new NS bag is required with each new unit of blood administered sodium chloride 0.9 % infusion 42 mL/hr, intravenous, As needed, pre-, and post- transfusion as needed for line flush purposes, in conjunction with blood product transfusion only, Starting on Sat09/25/24 at 0805, -Use only the amount required from a 250 mL bag of NS to adequately flush -A new NS bag is required with each new unit of blood administered sodium chloride 0.9 % infusion 42 mL/hr, intravenous, As needed, pre-, and post- transfusion as needed for line flush purposes, in conjunction with blood product transfusion only, Starting on Sat09/26/24 at 0701, -Use only the amount required from a 250 mL bag of NS to adequately flush -A new NS bag is required with each new unit of blood administered Linked Groups Order Group 1: Insert peripheral IV (CANCELED) STAT, Once, On Sat09/23/24 at 0942, For 1 occurrence, Preprocedure And Maintain IV access (CANCELED) Until discontinued, Starting on Sat09/23/24 at 0942, Until Specified, Preprocedure And Saline lock IV (CANCELED) Routine, Once, On Sat09/23/24 at 0942, For 1 occurrence, Preprocedure And sodium chloride 0.9 % flush 10 mLJump to med 10 mL, intravenous, 2 times daily, First dose on Sat09/23/24 at 1000, Preprocedure And sodium chloride 0.9 % flush 10 mLJump to med 10 mL, intravenous, As needed, line care, Starting on Sat09/23/24 at 0941, Preprocedure documented in this encounter Orders Medications Ordered That Armen ht Not Have Been Administered Count Last Ordered Date First Ordered Date sodium chloride 0.9 % infusion 5 09/26/2024 09/21/2024 lactated Ringer's infusion 1 09/23/2024 sodium chloride 0.9 % flush 10 mL 1 025 acetaminophen (TYLENOL) tablet 650 mg 1 10/2024 ondansetron (PF) (ZOFRAN) injection 4 mg 1 09/21/2024 Consult Count Last Ordered Date First Orde red Date POST ACUTE HOME HEALTH CARE REQUEST 1 09/26 PT Count Last Ordered Date First Orde red Date PT EVAL AND TREAT 1 09/24/2024 Admission Count Last Ordered Date First Orde red Date ADMIT TO INPATIENT 1 09/21/2024 Transfer Count Last Ordered Date First Orde red Date ED TO FLOOR BED REQUEST 1 09/21/2024 Discharge Count Last Ordered Date First Orde red Date DISCHARGE PATIENT 1 09/26/2024 documented in this encounter Care Teams News Department Intern Relationship Specialty Start Date End Date Rylan Ortiz DO [address] [place] [phone] PCP - General 09/30/12 documented as of this encounter
== END 2024-09-29 15:55 | disposition home or self-care (01) ==
LOC: HO.HVNA 15:54
PROVIDERS: Visit Provider Internal Medicine
DX: Z13.89 Encounter for screening for other disorder (principal)
CPT/HCPCS: 36415; 85025; 85610